=== PATIENT | female | born 1985 | race Caucasian/White ===

== ENCOUNTER 2017-01-19 00:03 | Outpatient (CLI) | payer OTHER, MEDICAID ==
[2017-01-19] MEDS ORDERED: RINGERS SOLUTION,LACTATED 1,000 ML IV PRN (01:22)
[2017-01-19] MEDS ORDERED: ONDANSETRON HCL INJ/PF 4 MG/2 ML SDV IV ONE (01:45)
[2017-01-19] MEDS ORDERED: RINGERS SOLUTION,LACTATED 1,000 ML IV ONE (01:45)
[2017-01-19] MEDS ORDERED: ONDANSETRON HCL INJ/PF 4 MG/2 ML SDV ONE (02:00)
[2017-01-19] MEDS ORDERED: MAG HYDROX/AL HYDROX/SIMETH SUSP 30 ML UDCUP ONE (02:00)
[2017-01-19] MEDS ORDERED: MAG HYDROX/AL HYDROX/SIMETH SUSP 30 ML UDCUP PO ONE (02:00)
[2017-01-19 02:18] LABS: ALANINE AMINOTRANSFERASE 16 U/L (9-52); ALBUMIN 3.6 g/dL (3.5-5.0); ALKALINE PHOSPHATASE 39 U/L (38-126); AMYLASE 62 U/L (30-110); ANION GAP 12 (5-19); ASPARTATE AMINO TRANSFERASE 11 U/L (14-36); BILIRUBIN,DIRECT 0.2 mg/dL (0.0-0.4); BILIRUBIN,TOTAL 0.8 mg/dL (0.2-1.3); BLOOD UREA NITROGEN 6 mg/dL (7-20); CALCIUM 9.5 mg/dL (8.4-10.2); CARBON DIOXIDE 24 mmol/L (22-30); CHLORIDE 104 mmol/L (98-107); CREATININE RESULT 0.66 mg/dL (0.52-1.25); GLUCOSE 99 mg/dL (75-110); LIPASE 57.1 U/L (23-300); POTASSIUM 3.7 mmol/L (3.6-5.0); SODIUM 139.9 mmol/L (137-145); TOTAL PROTEIN 6.7 g/dL (6.3-8.2)
[2017-01-19 03:03] LABS: ABSOLUTE BASOPHILS # (AUTO) 0.1 10^3/uL (0.0-0.2); ABSOLUTE EOSINOPHILS # (AUTO) 0.3 10^3/uL (0.0-0.6); ABSOLUTE LYMPHOCYTES (AUTO) 3.4 10^3/uL (0.5-4.7); BASOPHILS % (AUTO) 0.4 % (0-2); EOSINOPHILS % (AUTO) 1.9 % (0-6); HEMATOCRIT 33.2 % (36.0-47.0); HEMOGLOBIN 11.3 g/dL (12.0-15.5); HGB HCT DIFFERENCE 0.7; LYMPHOCYTES % (AUTO) 19.2 % (13-45); MEAN CORPUSCULAR HEMOGLOBIN 29.8 pg (27.0-33.4); MEAN CORPUSCULAR VOLUME 88 fl (80-97); MONOCYTES % (AUTO) 5.5 % (3-13); RED BLOOD COUNT 3.79 10^6/uL (3.72-5.28); RED CELL DISTRIBUTION WIDTH 14.2 % (11.5-14.0); WHITE BLOOD COUNT 17.7 10^3/uL (4.0-10.5)
[2017-01-19 04:09] LABS: APPEARANCE,URINE SLIGHTLY-CLOUDY; BILIRUBIN,URINE NEGATIVE (NEGATIVE); GLUCOSE, URINE NEGATIVE (NEGATIVE); KETONES,URINE 20 mg/dL (NEGATIVE); LEUKOCYTE ESTERASE,URINE NEGATIVE (NEGATIVE); NITRITE,URINE NEGATIVE (NEGATIVE); PROTEIN,URINE 30 mg/dL (NEGATIVE); URINE SPECIFIC GRAVITY 1.019; UROBILINOGEN,URINE NEGATIVE mg/dL (<2.0)
[2017-01-19 04:17] LABS: URINE BARBITURATES SCREEN NEGATIVE; URINE METHADONE SCREEN NEGATIVE; URINE OPIATES LOW NEGATIVE; URINE PHENCYCLIDINE SCREEN NEGATIVE
== END 2017-01-19 03:59 | disposition home or self-care (01) ==
LOC: LC 00:03
PROVIDERS: ATTEND Obstetrics & Gynecology
PROC: 4A1HXCZ Monitoring of Products of Conception, Cardiac Rate, External Approach (ICD-10-PCS; principal; 2017-01-19)
DX: O47.02 False labor before 37 completed weeks of gestation, second trimester (principal); O26.892 Other specified pregnancy related conditions, second trimester; R11.2 Nausea with vomiting, unspecified; Z3A.26 26 weeks gestation of pregnancy
CPT/HCPCS: 59899; 36415; 82150; 83690; 85025; 80053; 81001; 80307; J2405

== ENCOUNTER 2017-02-05 13:01 | Emergency (ER) | payer OTHER, MEDICAID ==
[2017-02-05] MEDS ORDERED: IPRATROPIUM/ALBUTEROL 0.5-2.5 MG/3 ML AMPUL NEB ONE ×2 (13:55→15:08)
[2017-02-05] MEDS ORDERED: PREDNISONE 20 MG TABLET PO ONE (13:55)
[2017-02-05] MEDS ORDERED: NORMAL SALINE 1000 ML 1,000 ML IV ONE (13:56)
--- NOTE | 2017-02-05 13:57 | ER Document Report ---
ED Medical Screen (RME) - General Chief Complaint: Cough Stated Complaint: DIFFICULTY BREATHING Time Seen by Provider: 02/05/17 13:50 Notes: 31-year-old asthmatic patient but 29 weeks , started with URI symptoms worsening asthma on Saturday, worse yesterday. Doing regular breathing treatments with nebulizer and using inhaler between the nebulizer treatments. She has had a nonproductive cough, has had some chills. No vomiting. No known fever but has not checked her temperature. Has not been on steroids and probably a year. I have greeted and performed a rapid initial assessment of this patient. A comprehensive ED assessment and evaluation of the patient, analysis of test results and completion of the medical decision making process will be conducted by additional ED providers. TRAVEL OUTSIDE OF THE [place] IN LAST 30 DAYS: No - Related Data Allergies/Adverse Reactions: levofloxacin [From Levaquin] Allergy (Verified 02/05/17 13:25) Past Medical History Pulmonary Medical History: Reports: Hx Asthma, Hx Pneumonia Endocrine Medical History: Denies: Hx Diabetes Mellitus Type 2 Renal/ Medical History: Reports: Hx Ovarian Cysts, Hx Pelvic Inflammatory Disease. Denies: Hx Peritoneal Dialysis Past Surgical History: Reports: Hx Cholecystectomy, Hx Tonsillectomy - Immunizations Immunizations up to date: Yes Hx Diphtheria, Pertussis, Tetanus Vaccination: Yes Physical Exam - Vital signs Vitals: Temp Pulse Resp BP Pulse Ox 98.9 F 120 H 24 H 137/79 H 95 02/05/17 13:27 02/05/17 13:27 02/05/17 13:27 02/05/17 13:27 02/05/17 13:27 Course - Vital Signs Vital signs: Temp Pulse Resp BP Pulse Ox 98.9 F 120 H 24 H 137/79 H 95 02/05/17 13:27 02/05/17 13:27 02/05/17 13:27 02/05/17 13:27 02/05/17 13:27
[2017-02-05 14:33] LABS: ABSOLUTE EOSINOPHILS # (AUTO) 0.6 10^3/uL (0.0-0.6); ABSOLUTE LYMPHOCYTES (AUTO) 2.9 10^3/uL (0.5-4.7); ABSOLUTE MONOCYTES (AUTO) 1.1 10^3/uL (0.1-1.4); ABSOLUTE NEUT (AUTO) 12.3 10^3/uL (1.7-8.2); BASOPHILS % (AUTO) 0.3 % (0-2); EOSINOPHILS % (AUTO) 3.7 % (0-6); HEMATOCRIT 29.4 % (36.0-47.0); HEMOGLOBIN 9.7 g/dL (12.0-15.5); HGB HCT DIFFERENCE -0.3; LYMPHOCYTES % (AUTO) 17.2 % (13-45); MEAN CORPUSCULAR HEMOGLOBIN 29.1 pg (27.0-33.4); MEAN CORPUSCULAR VOLUME 88 fl (80-97); MONOCYTES % (AUTO) 6.2 % (3-13); RED BLOOD COUNT 3.34 10^6/uL (3.72-5.28); RED CELL DISTRIBUTION WIDTH 14.2 % (11.5-14.0); SEGMENTED NEUTROPHILS % (AUTO) 72.6 % (42-78); WHITE BLOOD COUNT 16.9 10^3/uL (4.0-10.5)
[2017-02-05 14:44] LABS: ALANINE AMINOTRANSFERASE 27 U/L (9-52); ALBUMIN 3.6 g/dL (3.5-5.0); ALKALINE PHOSPHATASE 43 U/L (38-126); ANION GAP 13 (5-19); ASPARTATE AMINO TRANSFERASE 11 U/L (14-36); BILIRUBIN,DIRECT 0.2 mg/dL (0.0-0.4); BLOOD UREA NITROGEN 4 mg/dL (7-20); CALCIUM 8.3 mg/dL (8.4-10.2); CARBON DIOXIDE 21 mmol/L (22-30); CHLORIDE 106 mmol/L (98-107); CREATININE RESULT 0.52 mg/dL (0.52-1.25); GLUCOSE 75 mg/dL (75-110); POTASSIUM 3.8 mmol/L (3.6-5.0); SODIUM 139.6 mmol/L (137-145); TOTAL PROTEIN 6.5 g/dL (6.3-8.2)
--- NOTE | 2017-02-05 15:23 | ER Document Report ---
ED Respiratory Problem - General Chief Complaint: Cough Stated Complaint: DIFFICULTY BREATHING Time Seen by Provider: 02/05/17 13:50 Notes: The patient is a 31-year-old female, 28 weeks , PMHx asthma, unexplained tachycardia (evaluated by 3 specialists), presents with increasing wheezing and cough over the past 2 days. She had a severe asthma exacerbation 2 months ago and was admitted for 7 days. She said that her wheezing is not as severe as that time. She used her albuterol at home with mild relief of her symptoms. She is no longer taking prednisone. Denies leg swelling, abdominal pain, nausea, vomiting, hemoptysis, headache, chest pain or fevers. TRAVEL OUTSIDE OF THE [place] IN LAST 30 DAYS: No - Related Data Allergies/Adverse Reactions: levofloxacin [From Levaquin] Allergy (Verified 02/05/17 17:14) Past Medical History - General Information source: Patient - Social History Smoking Status: Unknown if Ever Smoked Family History: Reviewed & Not Pertinent, Arthritis, Hypertension Pulmonary Medical History: Reports: Hx Asthma, Hx Pneumonia Endocrine Medical History: Denies: Hx Diabetes Mellitus Type 2 Renal/ Medical History: Reports: Hx Ovarian Cysts, Hx Pelvic Inflammatory Disease. Denies: Hx Peritoneal Dialysis Past Surgical History: Reports: Hx Cholecystectomy, Hx Tonsillectomy - Immunizations Immunizations up to date: Yes Hx Diphtheria, Pertussis, Tetanus Vaccination: Yes Review of Systems - Review of Systems Notes: REVIEW OF SYSTEMS: CONSTITUTIONAL: -fevers, -chills EENT: -eye pain, -difficulty swallowing, -nasal congestion CARDIOVASCULAR:-chest pain, -syncope. RESPIRATORY: +cough, +SOB GASTROINTESTINAL: -abdominal pain, - nausea, -vomiting, -diarrhea GENITOURINARY: -dysuria, -hematuria MUSCULOSKELETAL: -back pain, -neck pain SKIN: -rash or skin lesions. HEMATOLOGIC: -easy bruising or bleeding. LYMPHATIC: -swollen, enlarged glands. NEUROLOGICAL: -altered mental status or loss of consciousness, -headache, - neurologic symptoms PSYCHIATRIC: -anxiety, -depression. ALL OTHER SYSTEMS REVIEWED AND NEGATIVE. Physical Exam - Vital signs Vitals: Temp Pulse Resp BP Pulse Ox 98.9 F 120 H 24 H 137/79 H 95 02/05/17 13:27 02/05/17 13:27 02/05/17 13:27 02/05/17 13:27 02/05/17 13:27 - Notes Notes: PHYSICAL EXAMINATION: GENERAL: Well-appearing, well-nourished and in no acute distress. HEAD: Atraumatic, normocephalic. EYES: Pupils equal round and reactive to light, extraocular movements intact, sclera anicteric, conjunctiva are normal. ENT: nares patent, oropharynx clear without exudates. Moist mucous membranes. NECK: Normal range of motion, supple without lymphadenopathy LUNGS: No respiratory distress. Wheezing bilaterally. HEART: Tachycardia, regular rhythm ABDOMEN: Soft, nontender, normoactive bowel sounds. Gravid abdomen. No guarding , no rebound. No masses appreciated. EXTREMITIES: Normal range of motion, no pitting or edema. No cyanosis. NEUROLOGICAL: Cranial nerves grossly intact. Normal speech, normal gait. Normal sensory and motor exams. PSYCH: Normal mood, normal affect. SKIN: Warm, Dry, normal turgor, no rashes or lesions noted. Course - Re-evaluation Re-evalutation: 02/05/17 16:51 Pt feels much better after DuoNeb and steroids. Her wheezing has resolved and she is in no respiratory distress. Offered patient a chest x- ray for possible pneumonia, but patient said that she has had multiple x-rays during this when she was hospitalized in November and she is deferring the x-ray because she feels much better. She has seen 3 specialists for further evaluation of the tachycardia. Spoke to patient about concern for possible PE, but patient is not feeling any shortness of breath at this time. She is requesting Tylenol with codeine to help with her cough because that is the only thing that works. Codeine is a class C and she understands the potential risks of taking this medication. She said that she was taking it before when she was hospitalized. Will provide a short course and have her follow-up with her easement worker tomorrow. Given strict return precautions and she understands. - Vital Signs Vital signs: Temp Pulse Resp BP Pulse Ox 98.9 F 120 H 27 H 139/87 H 96 02/05/17 13:27 02/05/17 17:30 02/05/17 17:30 02/05/17 17:30 02/05/17 17:30 - Laboratory Result Diagrams: 02/05/17 14:15 02/05/17 14:15 Laboratory results interpreted by me: 02/05/17 02/05/17 02/05/17 14:15 14:15 16:05 WBC 16.9 H RBC 3.34 L Hgb 9.7 L Hct 29.4 L RDW 14.2 H Absolute Neutrophils 12.3 H Carbon Dioxide 21 L BUN 4 L Calcium 8.3 L AST 11 L Urine Ketones 20 H Discharge - Discharge Clinical Impression: Asthma exacerbation Condition: Stable Disposition: HOME, SELF-CARE Additional Instructions: ASTHMA: You have been diagnosed as having asthma. This is a condition where there is episodic tightness in the bronchial tubes. Allergies, infections, and polluted or cold air may be contributing factors. Emergency treatment of a severe asthma attack may include adrenaline shots , or bronchodilator aerosol. You may feel lightheaded, have a decreased exercise tolerance and a rapid pulse for an hour or two. Rest and get plenty of fluids. Home treatment of asthma requires bronchodilator drugs. These can be administered by injection, inhalation, or by mouth. Antibiotics and corticosteroids may be required for some patients. You should avoid chemical fumes, dusts, pollens, and exercising in very cold or dry air. If you smoke, stop!! If you develop a fever, increased wheezing, chest pain, or severe shortness of breath, you should contact the doctor immediately. STEROID MEDICATION: You have been given an injection of or oral medicine of the cortisone/ steroid class. This medication is used to control inflammation or allergy. Rudy t is usually only given for a short period of time, until the acute process subsides. There are usually no side effects from short-term use of cortisone-like medications. Some persons feel an increased sense of well-being and are not sleepy at bedtime. Long-term use of cortisone medications is best avoided, unless required for a severe condition. If your condition does not remit, or relapses after the course of corticosteroid medication, you should consult your physician. INHALED BRONCHODILATORS: You have received treatment(s) of and/or prescription for an inhaled bronchodilator -- a medication which stimulates the airways in the lung to dilate. This improves the flow of air in asthma, bronchitis, and emphysema. These medicines have some similarity to adrenaline, and can cause similar side effects: shakiness, racing heart, and a sense of nervousness. These side effects decrease with time. Contact your doctor if these side effects are severe. Do not over-use the medicine. Too-frequent use of the inhaler may make it ineffective. Call your doctor if the inhaler is not controlling your symptoms at the prescribed doses. SMOKING: If you smoke, you should stop smoking. The tar and chemicals in cigarette smoke are harmful. Smoking has been shown to cause: emphysema chronic bronchitis lung cancer mouth and throat cancer stomach and pancreas cancer premature aging defects In addition, smoking increases ear and lung infections in children of smokers. USE OF ACETAMINOPHEN: Acetaminophen may be taken for pain relief or fever control. It's much safer than aspirin, offering a wider range of "safe" dosages. It is safe during . Some brand names are Tylenol, Panadol, Datril, Anacin 3, Tempra, and Liquiprin. Acetaminophen can be repeated every four hours. The following are maximum recommended dosages: USE OF ACETAMINOPHEN (Tylenol): Acetaminophen may be taken for pain relief or fever control. It's much safer than aspirin, offering a wider range of "safe" dosages. It is safe during . Some brand names are Tylenol, Panadol, Datril, Anacin 3, Tempra, and Liquiprin. Acetaminophen can be repeated every four hours. The following are maximum recommended dosages: WEIGHT Dose Drops Elixir Chewable( 80mg) (LBS.) drprs=droppers tsp=teaspoon 6 40 mg 0.4 ml (1/2) 6-11 80 mg 0.8 ml (full) tsp 1 tab 12-16 120 mg 1 1/2 drprs 3/4 tsp 1 1/2 tabs 17-23 160 mg 2 drprs 1 tsp 2 tabs 24-30 240 mg 3 drprs 1 1/2 tsp 3 tabs 30-35 320 mg 2 tsp 4 tabs 36-41 360 mg 2 1/4 tsp 4 1/2 tabs 42-47 400 mg 2 1/2 tsp 5 tabs 48-53 480 mg 3 tsp 6 tabs 54-59 520 mg 3 1/4 tsp 6 1/2 tabs 60-64 560 mg 3 1/2 tsp 7 tabs 65-70 600 mg 3 3/4 tsp 7 1/2 tabs 71-76 640 mg 4 tsp 8 tabs 77-82 720 mg 4 1/2 tsp 9 tabs 83-88 800 mg 5 tsp 10 tabs >89 pounds or adults 650 mg to 900 mg Acetaminophen can be repeated every four hours. Maximum dose not to exceed 4000 mg a day. These maximum recommended dosages are slightly higher than the dosages written on the product container, but these dosages are very safe and below the toxic dosage for acetaminophen. FOLLOW-UP CARE: If you have been referred to a physician for follow-up care, call the physician s office for an appointment as you were instructed or within the next two days. If you experience worsening or a significant change in your symptoms, notify the physician immediately or return to the Emergency Department at any time for re-evaluation. Prescriptions: Acetaminophen with Codeine [Tylenol #3 Tablet] 1 each PO Q4HP PRN #12 tablet PRN Reason: Prednisone [Deltasone 20 mg Tablet] 3 tab PO DAILY 5 Days
[2017-02-05] MEDS ORDERED: ACETAMINOPHEN WITH CODEINE 120-12 MG/5 ML UDCUP PO ONE (16:42)
[2017-02-05 17:21] LABS: APPEARANCE,URINE CLEAR; BILIRUBIN,URINE NEGATIVE (NEGATIVE); GLUCOSE, URINE NEGATIVE (NEGATIVE); KETONES,URINE 20 mg/dL (NEGATIVE); LEUKOCYTE ESTERASE,URINE NEGATIVE (NEGATIVE); NITRITE,URINE NEGATIVE (NEGATIVE); PROTEIN,URINE NEGATIVE (NEGATIVE); URINE SPECIFIC GRAVITY 1.003; UROBILINOGEN,URINE NEGATIVE mg/dL (<2.0)
[2017-02-05] MEDS ORDERED: GUAIFENESIN/CODEINE PHOS 100-10 MG/ 5 ML UDC PO ONE (17:33)
[2017-02-05 17:53] VITALS: BP 139/87
== END 2017-02-05 17:30 | disposition home or self-care (01) ==
LOC: ER 13:01
DX: O99.513 Diseases of the respiratory system complicating pregnancy, third trimester (principal); J45.901 Unspecified asthma with (acute) exacerbation; O26.893 Other specified pregnancy related conditions, third trimester; R05 Cough; R00.0 Tachycardia, unspecified; Z3A.28 28 weeks gestation of pregnancy; Z88.1 Allergy status to other antibiotic agents; Z87.01 Personal history of pneumonia (recurrent)
CPT/HCPCS: 99283; 36415; 85025; 80053; 81001; J3490; J7512; J7030; J7620

== ENCOUNTER 2017-03-19 00:19 | Outpatient (CLI) | payer OTHER, MEDICAID ==
[2017-03-19 00:59] LABS: APPEARANCE,URINE SLIGHTLY-CLOUDY; BILIRUBIN,URINE NEGATIVE (NEGATIVE); GLUCOSE, URINE NEGATIVE (NEGATIVE); KETONES,URINE NEGATIVE (NEGATIVE); LEUKOCYTE ESTERASE,URINE SMALL (NEGATIVE); NITRITE,URINE NEGATIVE (NEGATIVE); PROTEIN,URINE NEGATIVE (NEGATIVE); URINE SPECIFIC GRAVITY 1.003; UROBILINOGEN,URINE NEGATIVE mg/dL (<2.0)
--- NOTE | 2017-03-19 01:23 | Non Stress Test Report ---
Non Stress Test Datetime Report Generated by CPN: 03/19/2017 01:23 DEMOGRAPHIC EGA NST: 34.5 INDICATION Indication for Study: Ordered by Provider Indication for Study (NST) Other: LC MONITORING Monitor Explained: Monitor Explained; Test Explained; Patient Verbalized Understanding Time on Monitor: 03/19/2017 00:37 Time off Monitor: 03/19/2017 01:11 NST Duration: 34 NST INTERVENTIONS NST Interventions: PO Hydration; Reposition Patient Physician Notified NST: Dr. Giordano BABY A: [id number] BABY A Movement : Present Contraction Frequency : x3 FHR Baseline : 150 Accelerations : 15X15 Decelerations : None; Variable Variability : Moderate 6-25bpm NST Review: Meets Criteria for Reactive NST NST Review and Verified By : Alka Vital RN NST Results: Reactive NST REPORT Report Trigger: Send Report
[2017-03-19 02:19] LABS: URINE BARBITURATES SCREEN NEGATIVE; URINE METHADONE SCREEN NEGATIVE; URINE OPIATES LOW NEGATIVE; URINE PHENCYCLIDINE SCREEN NEGATIVE
== END 2017-03-19 01:30 | disposition home or self-care (01) ==
LOC: LC 00:19
PROVIDERS: ATTEND Student in an Organized Health Care Education/Training Program
PROC: 4A1HXCZ Monitoring of Products of Conception, Cardiac Rate, External Approach (ICD-10-PCS; principal; 2017-03-19)
DX: O76 Abnormality in fetal heart rate and rhythm complicating labor and delivery (principal); O47.03 False labor before 37 completed weeks of gestation, third trimester; Z3A.34 34 weeks gestation of pregnancy
CPT/HCPCS: 59025; 80307; 81001

== ENCOUNTER 2017-04-06 12:32 | Inpatient (IN) | payer OTHER, MEDICAID ==
[2017-04-06 13:31] LABS: AMNISURE (ROM) POSITIVE (NEGATIVE)
[2017-04-06 13:32] LABS: APPEARANCE,URINE SLIGHTLY-CLOUDY; BILIRUBIN,URINE NEGATIVE (NEGATIVE); GLUCOSE, URINE NEGATIVE (NEGATIVE); KETONES,URINE NEGATIVE (NEGATIVE); LEUKOCYTE ESTERASE,URINE SMALL (NEGATIVE); NITRITE,URINE NEGATIVE (NEGATIVE); PROTEIN,URINE 30 mg/dL (NEGATIVE); URINE SPECIFIC GRAVITY 1.003; UROBILINOGEN,URINE NEGATIVE mg/dL (<2.0)
[2017-04-06 13:51] LABS: URINE BARBITURATES SCREEN NEGATIVE; URINE METHADONE SCREEN NEGATIVE; URINE OPIATES LOW NEGATIVE; URINE PHENCYCLIDINE SCREEN NEGATIVE
[2017-04-06] MEDS ORDERED: CEFAZOLIN INJ 1 GM VIAL IV ONE (13:59)
[2017-04-06] MEDS ORDERED: CITRIC ACID/SODIUM CITRATE ORAL SOLN 15 ML UDCUP PO PRN (14:00)
[2017-04-06] MEDS ORDERED: OXYCODONE-ACETAMINOPHEN 5-325 MG TABLET PO PRN (14:01)
[2017-04-06] MEDS ORDERED: PROMETHAZINE HCL INJ 25 MG/1 ML VIAL IV PRN (14:01)
[2017-04-06] MEDS ORDERED: MEASLES,MUMPS&RUBELLA VACC/PF 0.5 ML VIAL SUBCUT PRN (14:01)
[2017-04-06] MEDS ORDERED: DIPH/PERTUSS(ACELL)/TETANUS VAC/PF 0.5 ML SYR (>=10YO) IM PRN (14:01)
[2017-04-06] MEDS ORDERED: OXYTOCIN/NORMAL SALINE 20 UNIT/1,000 ML RTUINJ IV PRN (14:01)
[2017-04-06] MEDS ORDERED: ACETAMINOPHEN 100 ML IV PRN (14:01)
[2017-04-06] MEDS ORDERED: ACETAMINOPHEN 325 MG TABLET PO PRN (14:01)
[2017-04-06] MEDS ORDERED: KETOROLAC TROMETHAMINE INJ/PF 30 MG/1 ML SDV INJ ONE (14:30)
[2017-04-06] MEDS ORDERED: OXYTOCIN 10 UNIT/ML VIAL ONE (14:32)
[2017-04-06] MEDS ORDERED: ONDANSETRON HCL INJ/PF 4 MG/2 ML SDV ONE (14:32)
[2017-04-06] MEDS ORDERED: FENTANYL CITRATE INJ/PF 100 MCG/2 ML AMPUL ONE (14:33)
[2017-04-06] MEDS ORDERED: MIDAZOLAM 2 MG/2 ML INJ ONE (14:33)
[2017-04-06] MEDS ORDERED: CITRIC ACID/SODIUM CITRATE ORAL SOLN 15 ML UDCUP ONE (14:35)
[2017-04-06] MEDS ORDERED: CEFAZOLIN 2 GM/D5W RTU 2 GM/50 ML RTUPB IV ONE (14:35)
[2017-04-06] MEDS ORDERED: CEFAZOLIN 1 GM/D5W RTU 1 GM/50 ML RTUPB IV ONE (14:35)
[2017-04-06 15:07] LABS: ABSOLUTE BASOPHILS # (AUTO) 0.1 10^3/uL (0.0-0.2); ABSOLUTE EOSINOPHILS # (AUTO) 0.3 10^3/uL (0.0-0.6); ABSOLUTE LYMPHOCYTES (AUTO) 5.1 10^3/uL (0.5-4.7); ABSOLUTE NEUT (AUTO) 6.8 10^3/uL (1.7-8.2); BASOPHILS % (AUTO) 0.4 % (0-2); EOSINOPHILS % (AUTO) 2.6 % (0-6); HEMATOCRIT 28.5 % (36.0-47.0); HEMOGLOBIN 9.6 g/dL (12.0-15.5); HGB HCT DIFFERENCE 0.3; LYMPHOCYTES % (AUTO) 38.6 % (13-45); MEAN CORPUSCULAR HEMOGLOBIN 29.3 pg (27.0-33.4); MEAN CORPUSCULAR HGB CONC 33.7 g/dL (32.0-36.0); MEAN CORPUSCULAR VOLUME 87 fl (80-97); MONOCYTES % (AUTO) 7.8 % (3-13); RED BLOOD COUNT 3.29 10^6/uL (3.72-5.28); RED CELL DISTRIBUTION WIDTH 15.3 % (11.5-14.0); SEGMENTED NEUTROPHILS % (AUTO) 50.6 % (42-78); WHITE BLOOD COUNT 13.3 10^3/uL (4.0-10.5)
[2017-04-06] MEDS ORDERED: DIPHENHYDRAMINE HCL 50 MG/ML VIAL ONE (15:48)
[2017-04-06 16:06] LABS: ADD HIVPANEL? NO; HIV (1 AND 2) ANTIBODY NEGATIVE (NEGATIVE)
[2017-04-06] MEDS ORDERED: OXYTOCIN/NORMAL SALINE 20 UNIT/1,000 ML RTUINJ ONE (16:43)
[2017-04-06] MEDS ORDERED: MEPERIDINE HCL/PF INJ 25 MG/1 ML DISP.SYRIN ONE ×2 (16:43→17:06)
--- NOTE | 2017-04-06 16:52 | OPERATIVE REPORT E ---
Operative Report NAME: KEEGAN ADAM : 1985 AGE: 31Y DATE OF SURGERY: 04/06/2017 ROOM: LR200 TIME OF PROCEDURE: 4:13 p.m. PREOPERATIVE DIAGNOSES: 1. Spontaneous rupture of membranes. 2. Polyhydramnios. 3. Left occiput transverse presentation. 4. Desires tubal ligation. POSTOPERATIVE DIAGNOSES: 1. Spontaneous rupture of membranes. 2. Polyhydramnios. 3. Left occiput transverse presentation. OPERATION: Primary via low transverse uterine incision and a tubal ligation. SURGEON: CHRIS LUNDY M.D. ANESTHESIA: Spinal. ESTIMATED BLOOD LOSS: 250. COMPLICATIONS: None. FINDINGS: Viable male, scores 8 and 9, and 9 pounds 1 ounce. PROCEDURE: The patient was taken to the OR and placed in the supine position. Her spinal was in place. Her abdomen was prepared and draped in a sterile fashion. Her bladder was drained with a Shook catheter. A low transverse incision was made and carried down to the level of the fascia which was nicked in the midline. The fascial incision was extended bilaterally using curved Zimmerman scissors. The fascia was off the rectus muscles using sharp and blunt dissection. The rectus muscles were in the midline, peritoneum entered without incident. Peritoneal incision extended superiorly and inferiorly taking care not to injury bladder. Bladder blade placed. Lower uterine segment identified, and a serosal incision was made creating a bladder flap. A low transverse uterine incision was made with the C-Safe knife. The incision was extended with the fingertips. The head was pushed down into the low uterine segment, and a vacuum was applied to control the head and the head was delivered. The baby was delivered completely. Cord doubly clamped and cut, and the was passed off to the plate washer in attendance. While using the vacuum, it took 1 pull with the pressure in the green using a Kiwi vacuum. The placenta was manually extracted with trailing membranes. The uterus was externalized and wiped with a moist lap sponge. Uterine contents were wiped clean. Tubes and ovaries were normal. The uterus was closed with a running locking layer of #0-chromic using a second layer to imbricate the first completing a double-layer closure of the uterus. The serosa was closed with a 2-0 chromic stitch. The posterior cul-de-sac was irrigated and suctioned free of fluid. The tubal was carried out using the [place] technique ligating a segment of tube and cut excising the segment free. The cut edge of each tube was then cauterized. The uterus was replaced in the abdomen. The anterior abdominal wall peritoneum was closed with a running 2-0 chromic stitch. Subfascial tissues were inspected with bleeding. Fascia was closed with a running #0-Vicryl in 2 segments. The wound was irrigated. Will's layer was closed with a 2-0 plain gut stitch, and the skin closed with a running subcuticular 4-0 undyed Vicryl stitch. Mother and baby are doing well. DICTATING PHYSICIAN: CHRIS LUNDY M.D. [id number] PHY#: [id number] ID: [id number] JOB#: [id number] ACCT: [id number] cc:CHRIS LUNDY M.D. >
--- NOTE | 2017-04-06 17:00 | Delivery Summary ---
Del Sum A-C Datetime Report Generated by CPN: 04/06/2017 16:59 DELIVERY PERSONNEL DELIVERY PERSONNEL: [id number];[id number] Delivery Doctor:: Miles Villegas MD Anesthesiologist:: Jc Koenig MD BRUSH FINISHER:: Berry Jaeger CRNA Labor and Delivery Nurse:: Yue Walton RNquarantine officer Nurse:: Lila Clarke RN Filter Assembler:: [facility] Nurse:: Denise Espinal RN Breast Buffer/INTENSIVE CARE UNIT REGISTERED NURSE: Kourtney Ramos CST Breast Buffer/INTENSIVE CARE UNIT REGISTERED NURSE: Stevenson Pickens LION HUNTER MATERNAL INFORMATION Delivery Anesthesia: Spinal Medications After Delivery: Pitocin Drip 20 Units/1000ml NSS Maternal Complications: Premature Rupture of Membranes LABOR SUMMARY EDC: 04/25/2017 00:00 No. Babies in Womb: 1 Attempted: No Labor Anesthesia: None LABOR INFORMATION Reason for Induction: Not Applicable Oxytocin: N/A Group B Beta Strep: NEGATIVE Antibiotics # of Doses: n/a Antibiotics Time of Last Dose: n/a Name of Antibiotic Given: n/a Steroids Given: None Reason Steroids Not Administered: Not Applicable Other Reason Not Administered: n/a MEMBRANES Membranes Rupture Method: Spontaneous Rupture of Membranes: 04/06/2017 11:58 Length of Rupture (hr): 3.65 Amniotic Fluid Color: Clear Amniotic Fluid Amount: Copious Amniotic Fluid Odor: Normal STAGES OF LABOR Stage 3 hr: 0 Stage 3 min: 1 CSECTION DELIVERY Primary Indication: Transverse/Complex Presentation Secondary Indication: N/A CSection Urgency: Non-Scheduled CSection Incidence: Primary CSection Incision: Lower Uterine Transverse Sterilization Procedure: [place] BABY A INFORMATION Delivery Date/Time: 04/06/2017 15:37 Method of Delivery: Born in Route : No : N/A Forceps: N/A Vacuum Extraction: N/A Shoulder Dystocia : No PRESENTATION/POSITION BABY A Presentation: Cephalic Cephalic Presentation: N/A Vertex Position: Left Occipital Transverse Breech Presentation: N/A PLACENTA INFORMATION BABY A Placenta Delivery Time : 04/06/2017 15:38 Placenta Method of Delivery: Manual Removal Placenta Status: Delivered SCORES BABY A Heart Rate 1 min: >100 bpm Resp Effort 1 min: Good Cry Reflex Irritability 1 min: Cough or Sneeze or Pulls Away Muscle Tone 1 min: Some Flexion of Extremities Color 1 min: Body Raub, Extremities Blue SCORE 1 MIN: 8 Heart Rate 5 min: >100 bpm Resp Effort 5 min: Good Cry Reflex Irritability 5 min: Cough or Sneeze or Pulls Away Muscle Tone 5 min: Active Motion Color 5 min: Body Raub, Extremities Blue SCORE 5 MIN: 9 INFORMATION BABY A Gestational Age at Delivery: 37.2 Gestational Status: Early Term- 37- 38.6 Weeks Infant Outcome : Liveborn Infant Condition : Stable Sex: Male IDENTIFICATION BABY A Verification Date/Time: 04/06/2017 15:42 ID Band Number: [id number] Mother's Name Verified: Yes Infant RN Verifying : Rodrick Anton RN Additional Verifying Personnel: Merlin Clarke RN WEIGHT/LENGTH BABY A Birthweight (gm): 4120 Weight (lb): 9 Weight (oz): 1 Length (in): 20.75 Length (cm): 52.71 CORD INFORMATION BABY A No. Cord Vessels: 3 Nuchal Cord : N/A Cord Blood Taken: Yes-For Storage (Mom's Blood type +) Suction: Mouth; Nose BABY B INFORMATION : N/A
[2017-04-06] MEDS ORDERED: ACETAMINOPHEN 100 ML IV ONE (17:07)
[2017-04-06] MEDS ORDERED: KETOROLAC TROMETHAMINE INJ/PF 30 MG/1 ML SDV ONE (17:07)
[2017-04-06] MEDS ORDERED: HYDROMORPHONE HCL INJ/PF 2 MG/ML AMPULE ONE (17:56)
--- NOTE | 2017-04-06 18:50 | Admission Physical ---
Datetime Report Generated by CPN: 04/06/2017 18:50 CURRENT ADMISSION Chief Complaint: Uterine Contractions; Suspected Ruptured Membranes Indication for Induction: Not Applicable Admit Impression- Other: Transverse lie Admit Plan: Admit to Unit; Initiate Section Protocol ALLERGIES Medication Allergies: Yes Medication Allergies: levofloxacin (04/06/2017); nickel (04/06/2017); nickel Medication Allergies: levofloxacin (04/06/2017) Medication Allergies: levofloxacin (02/05/2017) Medication Allergies: levofloxacin (01/19/2017) Medication Allergies: levofloxacin (04/10/2016) Latex: No Latex Allergies Food Allergies: N/a Environmental Allergies: N/A OBSTETRICAL HISTORY EDC: 04/25/2017 00:00 : 3 Para: 1 Term: 1 IAB: 1 Ectopic: 0 Livin Cesareans: 0 VBACs: 0 Multiple Births: 0 Gestational Diabetes: Yes Rh Sensitization: No Incompetent Cervix: No JEFF: No Infertility: No ART Treatment: No Uterine Anomaly: No IUGR: No Hx Previous C/S: No Macrosomia: Yes Hx Loss/Stillborn: No PIH: No Hx : No Placenta Previa/Abruption: No Depression/PP Depression: No PTL/PROM: No Post Hemorrhage: No Current Procedures: Ultrasound Obstetrical History Comments: G1: 2003 IAB G2: 2013, female 41+ (diet-controlled GDM) G3: current SEE RECORDS Alcohol: No Marijuana : No Cocaine: No Other Illicit Drugs: No Cigarettes: Current Everyday Smoker. [id number] Cigarette Frequency: 5 - 10 per day Advised to Stop: Yes MEDICAL HISTORY Diabetes: Yes Diabetes Type: Gestational Diabetes Blood Transfusion: No Pulmonary Disease (Asthma, TB): Yes Breast Disease: No Hypertension: No Riprap Man Surgery: Yes Heart Disease: Unknown Hosp/Surgery: Yes Autoimmune Disorder: No Anesthetic Complications: No Kidney Disease: No Abnormal Pap Smear: Yes Neuro/Epilepsy: No Psychiatric Disorders: No Other Medical Diseases: No Hepatitis/Liver Disease: No Significant Family History: No Varicosities/Phlebitis: No Trauma/Violence : No Thyroid Dysfunction: No Medical History Comments: GDM in prior , tachycardia of unknown etiology (followed by [facility] cardiology), LEEP x2 (last one in 2012), colpo x1, asthma INFECTIOUS HISTORY Gonorrhea: No Genital Herpes: No Chlamydia: No Tuberculosis: No Syphilis: No Hepatitis: No HIV/AIDS Exposure: No Rash or Viral Illness: No HPV: Yes PHYSICAL EXAM General: Normal HEENT: Normal Neurologic: Normal Thyroid: Normal Heart: Normal Lungs: Normal Breast: Deferred Back: Normal Abdomen: Normal Genitourinary Exam: Normal Extremities: Normal DTRs: Normal Pelvic Type: Adequate Vital Signs: Reviewed VAGINAL EXAM Dilatation: 0 Effacement: 0 MEMBRANES Pooling: Positive Membranes: Ruptured FETUS A EGA: 37.2 Monitoring: External US FHR- Baseline: 140 Variability: Minimal - Undetectable to <=5bpm Decelerations: None FHR Category: Category II Presentation: Transverse Admit Comment: discussed options. they wish to proceed with a c section. PLANS FOR LABOR AND DELIVERY Pain Management: Epidural Feeding Preference: Breast Benefit of Breast Feed Discussed: Yes Circumcision: Yes INFORMED CONSENT Signature: with User ID: [email or web address]
[2017-04-06] MEDS: DOCUSATE SODIUM 100 MG CAPSULE PO SCH (19:20)
[2017-04-06] MEDS: OXYCODONE-ACETAMINOPHEN 5-325 MG TABLET PO PRN (19:40)
[2017-04-06] MEDS: KETOROLAC TROMETHAMINE INJ/PF 30 MG/1 ML SDV IV SCH (21:46)
[2017-04-06] MEDS: HYDROMORPHONE HCL INJ/PF 2 MG/ML AMPULE IV PRN (22:55)
[2017-04-06] MEDS: RINGERS SOLUTION,LACTATED 1,000 ML IV PRN (22:56)
[2017-04-07] MEDS ORDERED: MAG HYDROX/AL HYDROX/SIMETH SUSP 30 ML UDCUP PO PRN (01:07)
[2017-04-07] MEDS: OXYCODONE-ACETAMINOPHEN 5-325 MG TABLET PO PRN ×2 (03:04→09:59)
[2017-04-07] MEDS: RINGERS SOLUTION,LACTATED 1,000 ML IV PRN (03:07)
[2017-04-07] MEDS ORDERED: RINGERS SOLUTION,LACTATED 500 ML IV ONE ×2 (03:15→17:45)
[2017-04-07] MEDS: KETOROLAC TROMETHAMINE INJ/PF 30 MG/1 ML SDV IV SCH (05:21)
[2017-04-07] MEDS: HYDROMORPHONE HCL INJ/PF 2 MG/ML AMPULE IV PRN (05:52)
[2017-04-07 06:42] LABS: HEMATOCRIT 21.6 % (36.0-47.0); HGB HCT DIFFERENCE -0.3; MEAN CORPUSCULAR HGB CONC 32.9 g/dL (32.0-36.0); MEAN CORPUSCULAR VOLUME 88 fl (80-97); RED BLOOD COUNT 2.45 10^6/uL (3.72-5.28); RED CELL DISTRIBUTION WIDTH 15.2 % (11.5-14.0); WHITE BLOOD COUNT 18.9 10^3/uL (4.0-10.5)
[2017-04-07 06:46] LABS: HEMOGLOBIN 7.1 g/dL (12.0-15.5)
[2017-04-07] MEDS ORDERED: ONDANSETRON 4 MG TAB.RAPDIS ONE (09:52)
[2017-04-07] MEDS: PRENATAL VITAMIN W-O CA NO5/FE FUMARATE/FA CAPSULE PO SCH (09:58)
[2017-04-07] MEDS: FAMOTIDINE 20 MG TABLET PO SCH (09:58)
[2017-04-07] MEDS: DOCUSATE SODIUM 100 MG CAPSULE PO SCH ×2 (09:58→17:36)
[2017-04-07] MEDS ORDERED: ONDANSETRON HCL 8 MG TABLET PO PRN ×2 (10:46→17:38)
--- NOTE | 2017-04-07 11:27 | PDOC PROGRESS REPORT ---
Subjective-OB Subjective: Post Delivery Day: 1 31 year old. Reports being nauseated and vomiting, states lochia is stable, pain is well controlled, not passing gas yet, moving around well. Physical Exam (OB) Vital Signs: Temp Pulse Resp BP Pulse Ox 98.2 F 116 H 20 112/75 100 04/07/17 09:18 04/07/17 09:18 04/07/17 09:18 04/07/17 09:18 04/07/17 09:18 Intake & Output 04/06/17 04/07/17 04/08/17 06:59 06:59 06:59 Intake Total 2000 450 Output Total 480 Balance 1520 450 Weight 108.182 kg - PIH/Pre-Eclampsia Clonus: Negative - Dressing Removed: No Incision: Dressing - Lochia Lochia Amount: Small 10-25 ml Lochia Color: Rubra/Red - Abdomen Description: Firm, Round Hernia Present: No Fundal Description: Firm, Midline Fundal Height: u/u - u/2 Objective-Diagnostic Laboratory: 04/07/17 06:12 04/06/17 04/06/17 04/06/17 13:00 14:47 14:47 WBC 13.3 H RBC 3.29 L Hgb 9.6 L Hct 28.5 L MCV 87 MCH 29.3 MCHC 33.7 RDW 15.3 H Plt Count 526 H Seg Neutrophils % 50.6 Lymphocytes % 38.6 Monocytes % 7.8 Eosinophils % 2.6 Basophils % 0.4 Absolute Neutrophils 6.8 Absolute Lymphocytes 5.1 H Absolute Monocytes 1.0 Absolute Eosinophils 0.3 Absolute Basophils 0.1 Urine Color STRAW Urine Appearance SLIGHTLY-CLOUDY Urine pH 7.0 Ur Specific [place] 1.003 Urine Protein 30 H Urine Glucose (UA) NEGATIVE Urine Ketones NEGATIVE Urine Blood NEGATIVE Urine Nitrite NEGATIVE Ur Leukocyte Esterase SMALL H Blood Type A POSITIVE Antibody Screen NEGATIVE 04/07/17 06:12 WBC 18.9 H RBC 2.45 L Hgb 7.1 L D Hct 21.6 L MCV 88 MCH 29.0 MCHC 32.9 RDW 15.2 H Plt Count 405 Seg Neutrophils % Lymphocytes % Monocytes % Eosinophils % Basophils % Absolute Neutrophils Absolute Lymphocytes Absolute Monocytes Absolute Eosinophils Absolute Basophils Urine Color Urine Appearance Urine pH Ur Specific [place] Urine Protein Urine Glucose (UA) Urine Ketones Urine Blood Urine Nitrite Ur Leukocyte Esterase Blood Type Antibody Screen Assessment and Plan(PN) - Assessment and Plan (1) Polyhydramnios Qualifiers: Fetus number: single or unspecified fetus Is this a current diagnosis for this admission?: Yes Plan: routine pp care (2) premature rupture of membranes (PPROM) delivered, current hospitalization Is this a current diagnosis for this admission?: Yes Plan: transverse presentation (3) Delivery by emergency Is this a current diagnosis for this admission?: Yes Plan: routine post op care cl liquid diet until nausea subsides zofran - Time Spent with Patient Time with patient: Less than 15 minutes Critical Time spent with patient: Less than 15 minutes Medications reviewed and adjusted accordingly: Yes - Disposition Anticipated Discharge: Home Within: within 48 hours
[2017-04-07] MEDS: IBUPROFEN 800 MG TABLET PO SCH ×3 (11:37→23:08)
[2017-04-07] MEDS ORDERED: HYDROCODONE/ACETAMINOPHEN 5-325 MG TABLET PO PRN ×2 (11:48)
[2017-04-07] MEDS: HYDROCODONE/ACETAMINOPHEN 5-325 MG TABLET PO PRN ×2 (14:06→21:24)
[2017-04-07] MEDS: SIMETHICONE 80 MG TAB.CHEW PO PRN ×2 (14:10→21:24)
[2017-04-07 17:20] LABS: HEMATOCRIT 18.6 % (36.0-47.0); HGB HCT DIFFERENCE 0.3; MEAN CORPUSCULAR HEMOGLOBIN 29.1 pg (27.0-33.4); MEAN CORPUSCULAR HGB CONC 33.9 g/dL (32.0-36.0); MEAN CORPUSCULAR VOLUME 86 fl (80-97); RED BLOOD COUNT 2.17 10^6/uL (3.72-5.28); RED CELL DISTRIBUTION WIDTH 15.1 % (11.5-14.0); WHITE BLOOD COUNT 18.3 10^3/uL (4.0-10.5)
[2017-04-07 17:26] LABS: HEMOGLOBIN 6.3 g/dL (12.0-15.5)
[2017-04-07 17:32] LABS: ALANINE AMINOTRANSFERASE 23 U/L (9-52); ALBUMIN 2.4 g/dL (3.5-5.0); ALKALINE PHOSPHATASE 46 U/L (38-126); ANION GAP 7 (5-19); ASPARTATE AMINO TRANSFERASE 20 U/L (14-36); BILIRUBIN,DIRECT 0.3 mg/dL (0.0-0.4); BILIRUBIN,TOTAL 0.4 mg/dL (0.2-1.3); BLOOD UREA NITROGEN 10 mg/dL (7-20); CALCIUM 8.2 mg/dL (8.4-10.2); CARBON DIOXIDE 26 mmol/L (22-30); CHLORIDE 98 mmol/L (98-107); CREATININE RESULT 1.23 mg/dL (0.52-1.25); GLUCOSE 85 mg/dL (75-110); POTASSIUM 3.3 mmol/L (3.6-5.0); SODIUM 130.7 mmol/L (137-145); TOTAL PROTEIN 4.6 g/dL (6.3-8.2)
[2017-04-07] MEDS ORDERED: METOCLOPRAMIDE HCL 10 MG TABLET PO PRN (17:39)
[2017-04-07] MEDS ORDERED: POTASSIUM CLORIDE 20 MEQ/50 ML RIDER IV PRN (18:12)
--- NOTE | 2017-04-07 22:03 | RADIOLOGY REPORT (SQ) ---
EXAM DESCRIPTION: CT ABD/PELVIS WITH IV ONLY COMPLETED DATE/TIME: 04/07/2017 9:46 pm REASON FOR STUDY: possible bowel obstruction COMPARISON: March 2016 TECHNIQUE: CT scan of the abdomen and pelvis performed using helical scanning technique with dynamic intravenous contrast injection. No oral contrast. Images reviewed with lung, soft tissue, and bone windows. Reconstructed coronal and sagittal MPR images reviewed. Delayed images for evaluation of the urinary system also acquired. All images stored on PACS. All CT scanners at this facility use dose modulation, iterative reconstruction, and/or weight based d osing when appropriate to reduce radiation dose to as low as reasonably achievable (ALARA). [facility]: Dose Right [facility]: CareDose [facility]: Dose Right [facility]: Teradose 4D [facility]: [employer] CONTRAST TYPE AND DOSE: contrast/concentration: Isovue 370.00 mg/ml; Total Contrast Delivered: 100.0 ml; Total Saline Delivered: 72.0 ml RENAL FUNCTION: Creatinine 1.03 RADIATION DOSE: Up-to-date CT equipment and radiation dose reduction techniques were employed. CTDIv ol: NaN - NaN mGy. DLP: 0 mGy-cm.. LIMITATIONS: None. FINDINGS: LOWER CHEST: No significant findings. No nodules or infiltrates. LIVER: Normal size. No masses. No dilated ducts. SPLEEN: Normal size. No focal lesions. PANCREAS: No masses. No significant calcifications. No adjacent inflammation or peripancreatic fluid collections. Pancreatic duct not dilated. GALLBLADDER: Status post cholecystectomy ADRENAL GLANDS: No significant masses or asymmetry. RIGHT KIDNEY AND URETER: No solid masses. No significant calcifications. No hydronephrosis or hyd roureter. LEFT KIDNEY AND URETER: No solid masses. No significant calcifications. No hydronephrosis or hydr oureter. AORTA AND VESSELS: No aneurysm. No dissection. Renal arteries, SMA, celiac without stenosis. RETROPERITONEUM: No retroperitoneal adenopathy, hemorrhage or masses. BOWEL AND PERITONEAL CAVITY: No masses or inflammatory changes. No free fluid. There are multiple p rominent air filled bowel loops most consistent with an ileus pattern. APPENDIX: Not identified PELVIS: uterus is identified. Air is identified within the uterine cavity presumably post surgical in nature. No free fluid. Shook catheter is identified in the bladder. ABDOMINAL WALL: There are diffuse edematous or inflammatory changes in the subcutaneous fat in the lo wer abdomen and pelvis. There is diffuse thickening of the abdominal wall in the pelvis which may on ly represent postsurgical changes however these changes could also represent hematomas. There is ass ociated scattered small gas collections presumably postsurgical in nature. BONES: No significant or acute findings. OTHER: No other significant finding. IMPRESSION: uterus is identified. There are diffuse edematous or inflammatory changes in the subcutaneous fat in the lower abdomen and pelvis. There is diffuse thickening of the abdominal wall in the pelvis which may only represent postsurgical changes however these changes could also rep resent hematomas. There is associated scattered small gas collections presumably postsurgical in marybel ure. Clinical correlation is recommended. Other findings as noted above TECHNICAL DOCUMENTATION: JOB ID: [id number] Quality ID # [id number]: Final reports with documentation of one or more dose reduction techniques (e.g., Au tomated exposure control, adjustment of the mA and/or kV according to patient size, use of iterative reconstruction technique) 2010 [employer]- All Rights Reserved
[2017-04-08] MEDS: SIMETHICONE 80 MG TAB.CHEW PO PRN ×3 (04:28→17:26)
[2017-04-08] MEDS: HYDROCODONE/ACETAMINOPHEN 5-325 MG TABLET PO PRN ×4 (04:29→23:01)
[2017-04-08] MEDS: IBUPROFEN 800 MG TABLET PO SCH ×4 (05:02→23:00)
[2017-04-08 06:27] LABS: HEMATOCRIT 22.6 % (36.0-47.0); HGB HCT DIFFERENCE 1.1; MEAN CORPUSCULAR HEMOGLOBIN 30.1 pg (27.0-33.4); MEAN CORPUSCULAR HGB CONC 34.8 g/dL (32.0-36.0); MEAN CORPUSCULAR VOLUME 87 fl (80-97); RED BLOOD COUNT 2.61 10^6/uL (3.72-5.28); WHITE BLOOD COUNT 16.4 10^3/uL (4.0-10.5)
[2017-04-08 06:55] LABS: HEMOGLOBIN 7.9 g/dL (12.0-15.5)
--- NOTE | 2017-04-08 08:43 | PDOC PROGRESS REPORT ---
Subjective Progress Note for:: 04/08/17 Subjective:: She reports feeling very good today. Reports flatus and she is very hungry. Physical Exam - Physical Exam Vital Signs: Temp Pulse Resp BP Pulse Ox 98.6 F 85 20 120/72 100 04/08/17 07:42 04/08/17 07:42 04/08/17 07:42 04/08/17 07:42 04/08/17 07:42 Intake & Output 04/07/17 04/08/17 04/09/17 06:59 06:59 06:59 Intake Total 2000 4910 Output Total 480 2550 Balance 1520 2360 Weight 108.182 kg General appearance: PRESENT: no acute distress, well-developed, well-nourished Head exam: PRESENT: atraumatic, normocephalic GI/Abdominal exam: PRESENT: diminished bowel sounds - postive bowel sounds Result Laboratory Results: 04/08/17 05:48 04/07/17 17:14 04/06/17 04/07/17 04/07/17 14:47 17:14 17:14 WBC 18.3 H RBC 2.17 L Hgb 6.3 L Hct 18.6 L MCV 86 MCH 29.1 MCHC 33.9 RDW 15.1 H Plt Count 385 Sodium 130.7 L Potassium 3.3 L Chloride 98 Carbon Dioxide 26 Anion Gap 7 BUN 10 Creatinine 1.23 Est GFR ( Amer) > 60 Est GFR (Non-Af Amer) 51 L Glucose 85 Calcium 8.2 L Total Bilirubin 0.4 AST 20 ALT 23 Alkaline Phosphatase 46 Total Protein 4.6 L Albumin 2.4 L Blood Type A POSITIVE Antibody Screen NEGATIVE 04/08/17 05:48 WBC 16.4 H RBC 2.61 L Hgb 7.9 L Hct 22.6 L MCV 87 MCH 30.1 MCHC 34.8 RDW 16.0 H Plt Count 368 Sodium Potassium Chloride Carbon Dioxide Anion Gap BUN Creatinine Est GFR ( Amer) Est GFR (Non-Af Amer) Glucose Calcium Total Bilirubin AST ALT Alkaline Phosphatase Total Protein Albumin Blood Type Antibody Screen Impressions: Abdomen/Pelvis CT 04/07/17 00:00 IMPRESSION: uterus is identified. There are diffuse edematous or inflammatory changes in the subcutaneous fat in the lower abdomen and pelvis. There is diffuse thickening of the abdominal wall in the pelvis which may only represent postsurgical changes however these changes could also represent hematomas. There is associated scattered small gas collections presumably postsurgical in nature. Clinical correlation is recommended. Other findings as noted above Assessment & Plan - Diagnosis (1) Delivery by emergency Is this a current diagnosis for this admission?: Yes Plan: Her anemia is both from chronic anemia and acute blood loss with the c section. Bowel fxn is improving. Will check flat and upright KUB. She is feeling much better post transfusion. (2) Anemia Qualifiers: Anemia type: other cause Other causes of anemia: other cause, not classified Qualified Code(s): D64.89 - Other specified anemias Is this a current diagnosis for this admission?: No - Time Time Spent with patient: 15-24 minutes Critical Time spent with patient: 15-24 minutes Anticipated discharge: Home Within: within 48 hours - We need full return of bowel fxn prior to discharge home.
[2017-04-08] MEDS ORDERED: DIPH/PERTUSS(ACELL)/TETANUS VAC/PF 0.5 ML SYR (>=10YO) IM PRN (09:30)
[2017-04-08] MEDS ORDERED: MEASLES,MUMPS&RUBELLA VACC/PF 0.5 ML VIAL SUBCUT PRN (09:30)
[2017-04-08] MEDS: FAMOTIDINE 20 MG TABLET PO SCH (09:51)
[2017-04-08] MEDS: DOCUSATE SODIUM 100 MG CAPSULE PO SCH ×2 (09:51→17:19)
[2017-04-08] MEDS: PRENATAL VITAMIN W-O CA NO5/FE FUMARATE/FA CAPSULE PO SCH (09:51)
--- NOTE | 2017-04-08 10:26 | RADIOLOGY REPORT (SQ) ---
EXAM DESCRIPTION: ACUTE ABDOMEN SERIES COMPLETED DATE/TIME: 04/08/2017 9:38 am REASON FOR STUDY: abd pain (flat and upright AAS) COMPARISON: None. NUMBER OF VIEWS: Three views. TECHNIQUE: Frontal chest, supine abdomen and upright/decubitus abdomen radiographic images acquired. LIMITATIONS: None. FINDINGS: CHEST: Lungs clear of infiltrates. FREE AIR: None. No abnormal gas collections. BOWEL GAS PATTERN: There are multiple prominent air filled bowel loops most consistent with an ileus pattern. CALCIFICATIONS: No suspicious calcifications. HARDWARE: Surgical clips are identified in the right upper quadrant. SOFT TISSUES: No gross mass or suggestion of organomegaly. BONES: No acute fracture. No worrisome bone lesions. OTHER: No other significant finding. IMPRESSION: NO RADIOGRAPHIC EVIDENCE FOR ACUTE ABDOMINAL DISEASE. TECHNICAL DOCUMENTATION: JOB ID: [id number] [employer]- All Rights Reserved
[2017-04-09 04:37] LABS: HEPATITIS C VIRUS AB <0.1 s/co ratio (0.0-0.9)
[2017-04-09] MEDS: IBUPROFEN 800 MG TABLET PO SCH (05:41)
[2017-04-09] MEDS: FAMOTIDINE 20 MG TABLET PO SCH (10:53)
[2017-04-09] MEDS: HYDROCODONE/ACETAMINOPHEN 5-325 MG TABLET PO PRN (10:53)
[2017-04-09] MEDS: DOCUSATE SODIUM 100 MG CAPSULE PO SCH (10:53)
[2017-04-09] MEDS: PRENATAL VITAMIN W-O CA NO5/FE FUMARATE/FA CAPSULE PO SCH (10:53)
--- NOTE | 2017-04-09 12:16 | PDOC PROGRESS REPORT ---
Subjective-OB Subjective: Post Delivery Day: 31 year old. Denies any needs at this time. Ready to go home. Physical Exam (OB) Vital Signs: Temp Pulse Resp BP Pulse Ox 98.4 F 82 16 145/77 H 100 04/09/17 11:51 04/09/17 11:51 04/09/17 11:51 04/09/17 11:51 04/09/17 11:51 Intake & Output 04/08/17 04/09/17 04/10/17 06:59 06:59 06:59 Intake Total 4910 840 Output Total 2550 750 Balance 2360 90 - PIH/Pre-Eclampsia Clonus: Negative Headache: Absent - Dressing Removed: Yes Incision: Dressing Closure Type: Sutures - Lochia Lochia Amount: Scant < 10 ml Lochia Color: Rubra/Red - Abdomen Description: Firm, Flat Hernia Present: No Bowel Sounds: Normoactive Flatus Presence: Present Stool: No Fundal Description: Firm Fundal Height: u/u - u/2 Objective-Diagnostic Laboratory: 04/08/17 05:48 04/07/17 17:14 Assessment and Plan(PN) - Time Spent with Patient Medications reviewed and adjusted accordingly: Yes - Disposition Anticipated Discharge: Home
--- NOTE | 2017-04-09 12:28 | PDOC DISCHARGE SUMMARY ---
Final Diagnosis Discharge Date: 04/09/17 - Final Diagnosis (1) Acute blood loss anemia Is this a current diagnosis for this admission?: Yes (2) Delivery by emergency Is this a current diagnosis for this admission?: Yes (3) Ileus Is this a current diagnosis for this admission?: Yes (4) Polyhydramnios Is this a current diagnosis for this admission?: Yes (5) premature rupture of membranes (PPROM) delivered, current hospitalization Is this a current diagnosis for this admission?: Yes Discharge Data - Discharge Medication Home Medications: Pnv95/Ferrous Fumarate/FA [ Formula Tablet] 1 each PO DAILY 01/19/17 Docusate Sodium [Colace 100 mg Capsule] 100 mg PO BID 30 Days #60 capsule Hydrocodone/Acetaminophen [[place] 5-325 mg Tablet] 1 tab PO Q4HP PRN 7 Days #20 tablet 04/09/17 Ibuprofen [Motrin 800 mg Tablet] 800 mg PO Q6 10 Days #30 tablet 04/09/17 Gestational Age: 37.2 wks Reason(s) for Admission: Ceasarean Section-Repeat Procedures: Ultrasound Intrapartum Procedure(s): : Low Cervical, Transverse - Data Baby 1 Male at 1 minute: 8 at 5 minutes: 9 Weight: 4.111 kg Home with Mother: Yes Complications: No - Diagnosis Test Laboratory: Temp Pulse Resp BP Pulse Ox 98.4 F 82 16 145/77 H 100 04/09/17 11:51 04/09/17 11:51 04/09/17 11:51 04/09/17 11:51 04/09/17 11:51 04/06/17 04/06/17 04/07/17 13:00 14:47 06:12 RBC 3.29 L 2.45 L Hgb 9.6 L 7.1 L D Hct 28.5 L 21.6 L Urine Opiates Screen NEGATIVE 04/07/17 04/08/17 17:14 05:48 RBC 2.17 L 2.61 L Hgb 6.3 L 7.9 L Hct 18.6 L 22.6 L Urine Opiates Screen - Discharge information/Instructions Discharge Activity: Activity As Tolerated, Balance Activity w/Rest, No Lifting Over 10 Pounds, No Lifting/Push/Pulling, Non-Ambulatory Child, Pelvic Rest, Slowly Increase Activity, No tub bath Discharge Diet: Regular Disposition: HOME, SELF-CARE Follow up with: [facility] in: 1, Weeks
[2017-04-09 12:36] VITALS: BP 129/75
== END 2017-04-09 13:25 | disposition home or self-care (01) | DRG 765 ==
LOC: LC 12:32 → LR 13:59 → 2N 18:49
PROVIDERS: ADMIT Obstetrics & Gynecology; ATTEND Obstetrics & Gynecology
PROC: 10D00Z1 Extraction of Products of Conception, Low, Open Approach (ICD-10-PCS; principal; 2017-04-06)
PROC: 0UB70ZZ Excision of Bilateral Fallopian Tubes, Open Approach (ICD-10-PCS; 2017-04-06)
PROC: 4A1HXCZ Monitoring of Products of Conception, Cardiac Rate, External Approach (ICD-10-PCS; 2017-04-06)
PROC: 30233N1 Transfusion of Nonautologous Red Blood Cells into Peripheral Vein, Percutaneous Approach (ICD-10-PCS; 2017-04-07)
DX: O40.3XX0 Polyhydramnios, third trimester, not applicable or unspecified (principal); D62 Acute posthemorrhagic anemia; K56.7 Ileus, unspecified; O99.02 Anemia complicating childbirth; O42.02 Full-term premature rupture of membranes, onset of labor within 24 hours of rupture; O32.2XX0 Maternal care for transverse and oblique lie, not applicable or unspecified; F17.210 Nicotine dependence, cigarettes, uncomplicated; O99.334 Smoking (tobacco) complicating childbirth; O99.52 Diseases of the respiratory system complicating childbirth; J45.909 Unspecified asthma, uncomplicated; O99.62 Diseases of the digestive system complicating childbirth; Z88.3 Allergy status to other anti-infective agents; Z30.2 Encounter for sterilization; Z3A.37 37 weeks gestation of pregnancy; Z37.0 Single live birth
CPT/HCPCS: 1961; 36415; 36430; 59025; 74022; 74177; 80053; 80307; 81005; 84112; 85025; 85027; 86592; 86701; 86762; 86803; 86804; 86850; 86900; 86901; 86920; 87340; 88302; J0131; J0690; J1170; J1200; J1885; J2175; J2250; J2405; J2550; J2590; J3010; J3480; J3490; J7120; P9016; S0119

== ENCOUNTER 2017-04-10 17:38 | Emergency (ER) | payer OTHER, MEDICAID ==
[2017-04-10 17:51] VITALS: BP 149/83
[2017-04-10 19:35] LABS: ABSOLUTE EOSINOPHILS # (AUTO) 0.3 10^3/uL (0.0-0.6); ABSOLUTE LYMPHOCYTES (AUTO) 3.5 10^3/uL (0.5-4.7); ABSOLUTE MONOCYTES (AUTO) 0.6 10^3/uL (0.1-1.4); ABSOLUTE NEUT (AUTO) 5.9 10^3/uL (1.7-8.2); BASOPHILS % (AUTO) 0.5 % (0-2); EOSINOPHILS % (AUTO) 3.1 % (0-6); HEMATOCRIT 23.5 % (36.0-47.0); HGB HCT DIFFERENCE 0.5; LYMPHOCYTES % (AUTO) 33.7 % (13-45); MEAN CORPUSCULAR HEMOGLOBIN 29.7 pg (27.0-33.4); MEAN CORPUSCULAR HGB CONC 34.2 g/dL (32.0-36.0); MEAN CORPUSCULAR VOLUME 87 fl (80-97); MONOCYTES % (AUTO) 5.9 % (3-13); SEGMENTED NEUTROPHILS % (AUTO) 56.8 % (42-78); WHITE BLOOD COUNT 10.4 10^3/uL (4.0-10.5)
[2017-04-10 19:54] LABS: ALANINE AMINOTRANSFERASE 30 U/L (9-52); ALBUMIN 2.8 g/dL (3.5-5.0); ALKALINE PHOSPHATASE 60 U/L (38-126); ANION GAP 5 (5-19); ASPARTATE AMINO TRANSFERASE 29 U/L (14-36); BILIRUBIN,DIRECT 0.3 mg/dL (0.0-0.4); BILIRUBIN,TOTAL 0.7 mg/dL (0.2-1.3); BLOOD UREA NITROGEN 14 mg/dL (7-20); CALCIUM 9.6 mg/dL (8.4-10.2); CARBON DIOXIDE 27 mmol/L (22-30); CHLORIDE 105 mmol/L (98-107); CREATININE RESULT 0.89 mg/dL (0.52-1.25); GLUCOSE 77 mg/dL (75-110); POTASSIUM 4.3 mmol/L (3.6-5.0); SODIUM 137.3 mmol/L (137-145); TOTAL PROTEIN 5.3 g/dL (6.3-8.2)
--- NOTE | 2017-04-10 20:05 | ER Document Report ---
ED Medical Screen (RME) - General Chief Complaint: Leg Swelling Stated Complaint: SWELLING IN LEGS Time Seen by Provider: 04/10/17 18:51 Notes: Patient delivered by approximately 3 days ago. Now she presents with headache foggy vision and dizziness. She also has noticed that her left leg is significantly more swollen than the right leg. She had no trouble with preeclampsia or hypertension during the . She did require a transfusion after the . TRAVEL OUTSIDE OF THE [place] IN LAST 30 DAYS: No - Related Data Allergies/Adverse Reactions: levofloxacin [From Levaquin] Allergy (Verified 04/06/17 12:49) nickel Allergy (Verified 04/06/17 15:02) Past Medical History - Social History Chew tobacco use (# tins/day): No Frequency of alcohol use: None Drug Abuse: None Pulmonary Medical History: Reports: Hx Asthma, Hx Pneumonia Endocrine Medical History: Denies: Hx Diabetes Mellitus Type 2 Renal/ Medical History: Reports: Hx Ovarian Cysts, Hx Pelvic Inflammatory Disease. Denies: Hx Peritoneal Dialysis Past Surgical History: Reports: Hx Section, Hx Cholecystectomy, Hx Tonsillectomy - Immunizations Immunizations up to date: Yes Hx Diphtheria, Pertussis, Tetanus Vaccination: Yes Physical Exam - Vital signs Vitals: Temp Pulse Resp BP Pulse Ox 99.0 F 95 16 149/83 H 98 04/10/17 17:44 04/10/17 17:44 04/10/17 17:44 04/10/17 17:44 04/10/17 17:44 Course - Vital Signs Vital signs: Temp Pulse Resp BP Pulse Ox 99.0 F 95 16 149/83 H 98 04/10/17 17:44 04/10/17 17:44 04/10/17 17:44 04/10/17 17:44 04/10/17 17:44 - Laboratory Result Diagrams: 04/10/17 19:20 04/10/17 19:20 Laboratory results interpreted by me: 04/10/17 04/10/17 19:20 19:20 RBC 2.70 L Hgb 8.0 L Hct 23.5 L RDW 16.0 H Plt Count 569 H Total Protein 5.3 L Albumin 2.8 L
--- NOTE | 2017-04-10 23:13 | RADIOLOGY REPORT (SQ) ---
EXAM DESCRIPTION: VENOUS UNILATERAL LOWER COMPLETED DATE/TIME: 04/10/2017 11:02 pm REASON FOR STUDY: left leg pain/swelling COMPARISON: None. TECHNIQUE: Dynamic and static henriquez scale and color images acquired of the left leg venous system. Se lected spectral images acquired with additional compression and augmentation maneuvers. The contralat eral common femoral vein and saphenofemoral junction were also imaged. Images stored on PACS. LIMITATIONS: None. FINDINGS: COMMON FEMORAL: Normal phasicity, compression and augmentation. No visualized echogenic ma terial on henriquez scale. No defects on color images. FEMORAL: Normal compression and augmentation. No visualized echogenic material on henriquez scale. No defe cts on color images. POPLITEAL: Normal compression, augmentation. No visualized echogenic material on henriquez scale. No defec ts on color images. CALF VESSELS: Normal compression, augmentation. No visualized echogenic material on henriquez scale. No de fects on color images. GSV and SSV: Normal compression, augmentation. No visualized echogenic material on henriquez scale. No def ects on color images. ANY DEEP VENOUS INSUFFICIENCY: Not evaluated. ANY EVIDENCE OF POPLITEAL CYST: No. OTHER: No other significant finding. CONTRALATERAL COMMON FEMORAL VEIN AND SAPHENOFEMORAL JUNCTION: Normal phasicity, compression and augmentation. No visualized echogenic material on henriquez scale. No de fects on color images. IMPRESSION: NO EVIDENCE OF DVT OR SVT IN THE LEFT LEG. TECHNICAL DOCUMENTATION: JOB ID: [id number] [employer]- All Rights Reserved
== END 2017-04-10 23:25 | disposition left against medical advice (07) ==
LOC: ER 17:38
DX: O90.89 Other complications of the puerperium, not elsewhere classified (principal); M79.89 Other specified soft tissue disorders; R51 Headache; R42 Dizziness and giddiness; O99.53 Diseases of the respiratory system complicating the puerperium; J45.909 Unspecified asthma, uncomplicated; Z53.20 Procedure and treatment not carried out because of patient's decision for unspecified reasons
CPT/HCPCS: 36415; 80053; 85025; 93971; 99281

== ENCOUNTER 2017-05-11 10:24 | Emergency (ER) | payer OTHER, MEDICAID ==
--- NOTE | 2017-05-11 10:52 | ER Document Report ---
ED Respiratory Problem - General Chief Complaint: Shortness Of Breath Stated Complaint: DIFFICULTY BREATHING Time Seen by Provider: 05/11/17 10:28 Mode of Arrival: Medic Information source: Patient, Emergency Med Personnel TRAVEL OUTSIDE OF THE [place] IN LAST 30 DAYS: No - HPI Patient complains to provider of: Short of breath Onset: This morning Duration: Better - AFTER EMS TREATMENT Initiating Event: Out of meds - RAN OUT OF PREDNISONE Quality of pain: No pain Context: Hx asthma Short of Breath: Moderate Cough: Nonproductive Sputum amount: None At home treatment: Bronchodilators, Oral steroids, Singulair EMS treatments: Bronchodilators, Solumedrol Associated symptoms: Cough, Wheezing. denies: Chest pain/discomfort, Chills, Fever, Sweaty Similar symptoms previously: Yes - NOT RECENT Recently seen / treated by doctor: No - HAS APPT. W/ PULMONARY IN [place] - Related Data Allergies/Adverse Reactions: levofloxacin [From Levaquin] Allergy (Verified 04/06/17 12:49) nickel Allergy (Verified 04/06/17 15:02) Past Medical History - General Information source: Patient - Social History Smoking Status: Former Smoker Cigarette use (# per day): No Chew tobacco use (# tins/day): No Frequency of alcohol use: None Drug Abuse: None Lives with: Spouse/Significant other Family History: Reviewed & Not Pertinent, Arthritis, Hypertension Patient has suicidal ideation: No Patient has homicidal ideation: No - Past Medical History Cardiac Medical History: Reports: None Pulmonary Medical History: Reports: Hx Asthma, Hx Pneumonia EENT Medical History: Reports: None Neurological Medical History: Reports: None Endocrine Medical History: Reports: None. Denies: Hx Diabetes Mellitus Type 2 Renal/ Medical History: Reports: Hx Ovarian Cysts, Hx Pelvic Inflammatory Disease. Denies: Hx Peritoneal Dialysis Malignancy Medical History: Reports: None GI Medical History: Reports: None Musculoskeltal Medical History: Reports None Psychiatric Medical History: Reports: None Past Surgical History: Reports: Hx Section, Hx Cholecystectomy, Hx Tonsillectomy - Immunizations Immunizations up to date: Yes Hx Diphtheria, Pertussis, Tetanus Vaccination: Yes Review of Systems - Review of Systems Constitutional: No symptoms reported EENT: No symptoms reported Cardiovascular: No symptoms reported Respiratory: See HPI Gastrointestinal: Nausea, Vomiting Genitourinary: No symptoms reported Female Genitourinary: Other - BREAST FEEDING Musculoskeletal: No symptoms reported Skin: No symptoms reported Hematologic/Lymphatic: No symptoms reported Neurological/Psychological: No symptoms reported Physical Exam - Vital signs Vitals: Temp 97.9 F 05/11/17 10:38 Interpretation: Tachycardic, Tachypneic. No: Febrile - General General appearance: Appears well, Alert In distress: None - HEENT Head: Normocephalic Eyes: Normal Conjunctiva: Normal Ears: Normal Nasal: Normal Mouth/Lips: Normal Mucous membranes: Normal - Respiratory Respiratory status: No respiratory distress Chest status: Nontender Breath sounds: Rales - BILAT. BASES, Wheezing - MODERATE EXPIRATORY, ALL LOBES - Cardiovascular Rhythm: Regular Heart sounds: Normal auscultation Murmur: No - Abdominal Inspection: Normal Distension: No distension Bowel sounds: Normal - Back Back: Normal - Extremities General upper extremity: Normal inspection General lower extremity: Normal inspection. No: Edema - Neurological Neuro grossly intact: Yes Cognition: Normal Orientation: AAOx4 - Psychological Associated symptoms: Normal affect, Normal mood - Skin Skin Temperature: Warm Skin Moisture: Dry Skin Color: Normal Skin Turgor: Elastic Course - Re-evaluation Re-evalutation: 05/11/17 14:01 Patient states she is much improved. On examination, she is in no distress. Vital signs are normal. Auscultation reveals a very small amount of end expiratory wheezing in the bases. There are no rales or rhonchi. - Vital Signs Vital signs: Temp Pulse Resp BP Pulse Ox 97.9 F 05/11/17 10:38 - Laboratory Result Diagrams: 05/11/17 10:30 05/11/17 10:30 Laboratory results interpreted by me: 05/11/17 05/11/17 05/11/17 10:30 10:30 10:30 WBC 18.9 H RDW 17.4 H Plt Count 542 H Abs Neuts (Manual) 9.3 H Abs Lymphs (Manual) 7.7 H Abs Monocytes (Manual) 1.5 H Carbon Dioxide 21 L Calcium 10.3 H NT-Pro-B Natriuret Pep 960 H - Diagnostic Test Radiology reviewed: Image reviewed, Reports reviewed - EKG Interpretation by Me EKG shows normal: Sinus rhythm, [place], Intervals, QRS Complexes. abnormal: ST-T Waves - LAT. T ABNLS, NS. Rate: Tachycardia P Waves: LAE Discharge - Discharge Clinical Impression: Asthma exacerbation Condition: Stable Disposition: HOME, SELF-CARE Instructions: Asthma ([facility]), Corticosteroid Medication ([facility]), Inhaled Bronchodilators ([facility]) Additional Instructions: BEGIN TAKING PREDNISONE DIRECTED TOMORROW (SATURDAY). CONTINUE ALL OTHER MEDS USUAL. FOLLOW UP WITH YOUR PRIMARY CARE PROVIDER WITHIN ONE WEEK. FOLLOW UP WITH DR. LOPEZ SCHEDULED. Prescriptions: Prednisone [Deltasone 10 mg Tablet] 10 mg PO ASDIR PRN #21 tablet PRN Reason:
[2017-05-11 11:03] LABS: ALANINE AMINOTRANSFERASE 26 U/L (9-52); ALBUMIN 4.2 g/dL (3.5-5.0); ALKALINE PHOSPHATASE 52 U/L (38-126); ANION GAP 15 (5-19); ASPARTATE AMINO TRANSFERASE 17 U/L (14-36); BILIRUBIN,DIRECT 0.4 mg/dL (0.0-0.4); BILIRUBIN,TOTAL 0.9 mg/dL (0.2-1.3); BLOOD UREA NITROGEN 17 mg/dL (7-20); CALCIUM 10.3 mg/dL (8.4-10.2); CARBON DIOXIDE 21 mmol/L (22-30); CHLORIDE 107 mmol/L (98-107); CREATININE RESULT 0.83 mg/dL (0.52-1.25); GLUCOSE 93 mg/dL (75-110); MAGNESIUM 1.7 mg/dL (1.6-2.3); POTASSIUM 4.1 mmol/L (3.6-5.0); SODIUM 142.7 mmol/L (137-145); TOTAL PROTEIN 7.1 g/dL (6.3-8.2)
[2017-05-11 11:08] LABS: HEMATOCRIT 40.2 % (36.0-47.0); HEMOGLOBIN 13.2 g/dL (12.0-15.5); HGB HCT DIFFERENCE -0.6; MEAN CORPUSCULAR HEMOGLOBIN 27.9 pg (27.0-33.4); MEAN CORPUSCULAR HGB CONC 32.8 g/dL (32.0-36.0); MEAN CORPUSCULAR VOLUME 85 fl (80-97); RED BLOOD COUNT 4.72 10^6/uL (3.72-5.28); RED CELL DISTRIBUTION WIDTH 17.4 % (11.5-14.0); WHITE BLOOD COUNT 18.9 10^3/uL (4.0-10.5)
[2017-05-11 11:24] LABS: BASOPHILS % (MANUAL) 1 % (0-2); EOSINOPHILS % (MANUAL) 1 % (0-6); LYMPHOCYTES % (MANUAL) 41 % (13-45); TOTAL CELLS COUNTED 100
[2017-05-11 11:25] LABS: ANISOCYTOSIS 1+; HYPOCHROMASIA SLIGHT; OVALOCYTES SLIGHT; POIKILOCYTOSIS SLIGHT
--- NOTE | 2017-05-11 11:34 | RADIOLOGY REPORT (SQ) ---
EXAM DESCRIPTION: CHEST PA/LAT COMPLETED DATE/TIME: 05/11/2017 11:20 am REASON FOR STUDY: DYSPNEA, WHEEZING COMPARISON: Two-view chest 12/04/2014, 11/13/2014, 10/17/2014, 10/06/2014 CT angio chest 10/06/2014 EXAM PARAMETERS: NUMBER OF VIEWS: two views TECHNIQUE: Digital Frontal and Lateral radiographic views of the chest acquired. RADIATION DOSE: NA LIMITATIONS: none FINDINGS: LUNGS AND PLEURA: No opacities, masses or pneumothorax. No pleural effusion. MEDIASTINUM AND HILAR STRUCTURES: No masses or contour abnormalities. HEART AND VASCULAR STRUCTURES: Heart normal size. No evidence for failure. BONES: No acute findings. HARDWARE: None in the chest. OTHER: No other significant finding. IMPRESSION: NO SIGNIFICANT RADIOGRAPHIC FINDING IN THE CHEST. TECHNICAL DOCUMENTATION: JOB ID: [id number] [employer]- All Rights Reserved
[2017-05-11 14:41] VITALS: BP 117/63
[2017-05-11 14:42] LABS: APPEARANCE,URINE CLEAR; BILIRUBIN,URINE NEGATIVE (NEGATIVE); GLUCOSE, URINE NEGATIVE (NEGATIVE); KETONES,URINE NEGATIVE (NEGATIVE); LEUKOCYTE ESTERASE,URINE TRACE (NEGATIVE); NITRITE,URINE NEGATIVE (NEGATIVE); PROTEIN,URINE NEGATIVE (NEGATIVE); URINE SPECIFIC GRAVITY 1.024; UROBILINOGEN,URINE NEGATIVE mg/dL (<2.0)
--- NOTE | 2017-05-11 16:59 | EKG REPORT ---
SEVERITY:- ABNORMAL ECG - SINUS TACHYCARDIA PROBABLE LEFT ATRIAL ABNORMALITY NONSPECIFIC T ABNORMALITIES, LATERAL LEADS : Confirmed by: Raymond Lovelace MD 11-May-2017 16:59:11
== END 2017-05-11 14:41 | disposition home or self-care (01) ==
LOC: ER 10:24
DX: J45.901 Unspecified asthma with (acute) exacerbation (principal); R06.02 Shortness of breath; Z87.891 Personal history of nicotine dependence
CPT/HCPCS: 36415; 71020; 80053; 81001; 83735; 83880; 85025; 93005; 93010; 99285

== ENCOUNTER 2017-08-18 13:02 | Inpatient (IN) | payer MEDICAID, OTHER ==
[2017-08-18] MEDS ORDERED: METHYLPREDNISOLONE INJ 125 MG/2 ML SDV IV ONE (13:41)
[2017-08-18] MEDS ORDERED: NORMAL SALINE 1000 ML 1,000 ML IV ONE (13:41)
[2017-08-18] MEDS ORDERED: IPRATROPIUM/ALBUTEROL 0.5-2.5 MG/3 ML AMPUL NEB ONE (13:41)
--- NOTE | 2017-08-18 13:44 | ER Document Report ---
ED Medical Screen (RME) - General Chief Complaint: Shortness Of Breath Stated Complaint: SHORTNESS OF BREATH,COUGH Time Seen by Provider: 08/18/17 13:36 Notes: 32-year-old female with asthma who uses inhalers nebulizers and a new shot called Julio C. She finished a 5 day course of prednisone 60 mg a day on Saturday 2 days ago. Wheezing is gotten worse since then. She has diffuse inspiratory wheezes and is tachycardic. She has had a nonproductive cough with out fever. She does feel like her chest is tight and is short of breath. I have greeted and performed a rapid initial assessment of this patient. A comprehensive ED assessment and evaluation of the patient, analysis of test results and completion of the medical decision making process will be conducted by additional ED providers. TRAVEL OUTSIDE OF THE [place] IN LAST 30 DAYS: No - Related Data Allergies/Adverse Reactions: levofloxacin [From Levaquin] Allergy (Verified 04/06/17 12:49) nickel Allergy (Verified 04/06/17 15:02) Past Medical History - Social History Chew tobacco use (# tins/day): No Frequency of alcohol use: None Drug Abuse: None Pulmonary Medical History: Reports: Hx Asthma, Hx Pneumonia Endocrine Medical History: Denies: Hx Diabetes Mellitus Type 2 Renal/ Medical History: Reports: Hx Ovarian Cysts, Hx Pelvic Inflammatory Disease. Denies: Hx Peritoneal Dialysis Past Surgical History: Reports: Hx Section, Hx Cholecystectomy, Hx Tonsillectomy - Immunizations Immunizations up to date: Yes Hx Diphtheria, Pertussis, Tetanus Vaccination: Yes Physical Exam - Vital signs Vitals: Temp Pulse Resp BP Pulse Ox 98.7 F 127 H 32 H 142/77 H 94 08/18/17 13:09 08/18/17 13:09 08/18/17 13:09 08/18/17 13:09 08/18/17 13:09 Course - Vital Signs Vital signs: Temp Pulse Resp BP Pulse Ox 98.7 F 127 H 32 H 142/77 H 94 08/18/17 13:09 08/18/17 13:09 08/18/17 13:09 08/18/17 13:09 08/18/17 13:09
[2017-08-18] MEDS: MAGNESIUM SULFATE/D5W 1 GM/100 ML RTUPB IV SCH ×2 (14:18→15:09)
[2017-08-18 14:33] LABS: ABSOLUTE BASOPHILS # (AUTO) 0.1 10^3/uL (0.0-0.2); ABSOLUTE EOSINOPHILS # (AUTO) 0.1 10^3/uL (0.0-0.6); ABSOLUTE LYMPHOCYTES (AUTO) 4.3 10^3/uL (0.5-4.7); ABSOLUTE MONOCYTES (AUTO) 0.7 10^3/uL (0.1-1.4); ABSOLUTE NEUT (AUTO) 11.6 10^3/uL (1.7-8.2); BASOPHILS % (AUTO) 0.6 % (0-2); EOSINOPHILS % (AUTO) 0.5 % (0-6); HEMATOCRIT 42.5 % (36.0-47.0); HEMOGLOBIN 14.3 g/dL (12.0-15.5); LYMPHOCYTES % (AUTO) 25.7 % (13-45); MEAN CORPUSCULAR HEMOGLOBIN 27.6 pg (27.0-33.4); MEAN CORPUSCULAR HGB CONC 33.6 g/dL (32.0-36.0); MEAN CORPUSCULAR VOLUME 82 fl (80-97); MONOCYTES % (AUTO) 4.3 % (3-13); PLATELET COUNT 506 10^3/uL (150-450); RED BLOOD COUNT 5.17 10^6/uL (3.72-5.28); SEGMENTED NEUTROPHILS % (AUTO) 68.9 % (42-78); TOTAL CELLS COUNTED % (AUTO) 100 %; WHITE BLOOD COUNT 16.9 10^3/uL (4.0-10.5)
--- NOTE | 2017-08-18 14:58 | RADIOLOGY REPORT (SQ) ---
EXAM DESCRIPTION: CHEST SINGLE VIEW COMPLETED DATE/TIME: 08/18/2017 2:51 pm REASON FOR STUDY: cough, shortness of breath COMPARISON: 05/11/2017 EXAM PARAMETERS: NUMBER OF VIEWS: One view. TECHNIQUE: Single frontal radiographic view of the chest acquired. RADIATION DOSE: NA LIMITATIONS: None. FINDINGS: LUNGS AND PLEURA: No opacities, masses or pneumothorax. No pleural effusion. MEDIASTINUM AND HILAR STRUCTURES: No masses. Contour normal. HEART AND VASCULAR STRUCTURES: Heart normal in size. Normal vasculature. BONES: No acute findings. HARDWARE: None in the chest. OTHER: No other significant finding. IMPRESSION: NO ACUTE RADIOGRAPHIC FINDING IN THE CHEST. TECHNICAL DOCUMENTATION: JOB ID: [id number] [employer]- All Rights Reserved
[2017-08-18] MEDS ORDERED: ALBUTEROL SULFATE 0.083% NEB 2.5 MG/3 ML AMPUL NEB ONE (15:09)
[2017-08-18 15:18] LABS: VENOUS BLOOD BASE EXCESS 2.5 mmol/L; VENOUS BLOOD PCO2 46.4 mmHg (35-63); VENOUS BLOOD PH 7.4 (7.30-7.42)
[2017-08-18 15:34] LABS: ALANINE AMINOTRANSFERASE 28 U/L (9-52); ALKALINE PHOSPHATASE 46 U/L (38-126); ANION GAP 8 (5-19); ASPARTATE AMINO TRANSFERASE 14 U/L (14-36); BILIRUBIN,DIRECT 0.2 mg/dL (0.0-0.4); BLOOD UREA NITROGEN 16 mg/dL (7-20); CALCIUM 9.4 mg/dL (8.4-10.2); CARBON DIOXIDE 29 mmol/L (22-30); CHLORIDE 104 mmol/L (98-107); GLUCOSE 93 mg/dL (75-110); POTASSIUM 3.8 mmol/L (3.6-5.0); SODIUM 141.3 mmol/L (137-145); TOTAL PROTEIN 7.2 g/dL (6.3-8.2)
[2017-08-18] MEDS ORDERED: ACETAMINOPHEN 325 MG TABLET PO ONE (15:34)
[2017-08-18] MEDS ORDERED: ALBUTEROL SULFATE 0.083% NEB 2.5 MG/3 ML AMPUL NEB PRN (16:22)
[2017-08-18] MEDS ORDERED: ACETAMINOPHEN 325 MG TABLET PO PRN (16:22)
--- NOTE | 2017-08-18 16:25 | ER Document Report ---
ED Respiratory Problem - General Chief Complaint: Shortness Of Breath Stated Complaint: SHORTNESS OF BREATH,COUGH Time Seen by Provider: 08/18/17 13:36 Notes: Patient is a 31-year-old female presents emergency department complaining of worsening asthma, shortness of breath and cough since her prednisone ran out 2 days ago. Patient states that she has been on approximately 10 mg of prednisone since beginning of May per her primary care recommendation. She states she ran out the beginning of July went to an urgent care where she was put on a 5 day burst treatment of 60 mg a day which ran out 2 days ago and her shortness of breath came back. States she has been doing donuts at home without significant improvement. Home medications are Advair, Nucala once a month which she started in June. Patient is a current smoker. She has any productive cough, fever, chills. PCP: Magda at [facility] [place]m: [employer] TRAVEL OUTSIDE OF THE [place] IN LAST 30 DAYS: No - Related Data Allergies/Adverse Reactions: levofloxacin [From [facility]] Allergy (Verified 04/06/17 12:49) nickel Allergy (Verified 04/06/17 15:02) Past Medical History - Social History Smoking Status: Current Every Day Smoker Chew tobacco use (# tins/day): No Frequency of alcohol use: None Drug Abuse: None Family History: Reviewed & Not Pertinent, Arthritis, Hypertension Patient has suicidal ideation: No Patient has homicidal ideation: No Pulmonary Medical History: Reports: Hx Asthma, Hx Pneumonia Endocrine Medical History: Denies: Hx Diabetes Mellitus Type 2 Renal/ Medical History: Reports: Hx Ovarian Cysts, Hx Pelvic Inflammatory Disease. Denies: Hx Peritoneal Dialysis Past Surgical History: Reports: Hx Section, Hx Cholecystectomy, Hx Tonsillectomy - Immunizations Immunizations up to date: Yes Hx Diphtheria, Pertussis, Tetanus Vaccination: Yes Review of Systems - Review of Systems Constitutional: No symptoms reported Cardiovascular: No symptoms reported Respiratory: See HPI Gastrointestinal: No symptoms reported -: Yes All other systems reviewed and negative Physical Exam - Vital signs Vitals: Temp Pulse Resp BP Pulse Ox 98.7 F 127 H 32 H 142/77 H 94 08/18/17 13:09 08/18/17 13:09 08/18/17 13:09 08/18/17 13:09 08/18/17 13:09 - Notes Notes: PHYSICAL EXAM GENERAL: Alert, interacts well. Patient having difficulty completing her sentences due to shortness of breath HEAD: Normocephalic, atraumatic. EYES: Pupils equal, round, and reactive to light. Extraocular movements intact. ENT: Oral mucosa moist, tongue midline. NECK: Full range of motion. Suppl spine achea midline. LUNGS: diffuse wheezes and rhonchi No respiratory distress. HEART: Tachycardic with regular rhythm. No murmurs, gallops, or rubs. EXTREMITIES: Moves all 4 extremities spontaneously. No edema, radial and dorsalis pedis pulses 2/4 bilaterally. No cyanosis. NEUROLOGICAL: Alert and oriented x4. Normal speech. PSYCH: Normal affect, normal mood. SKIN: Warm, dry, normal turgor. No rashes or lesions noted. Course - Re-evaluation Re-evalutation: 08/18/17 16:24 Patient is a 31-year-old female who is hemodynamically stable, no acute distress and afebrile. Patient has improved after IV magnesium, duo nebs and site Medrol given the emergency department. Patient was ambulated around the department after medications with tachypnea, tachycardia and satting approximately 88%. based on patient's previous outpatient course and presentation after ER interventions, patient has failed outpatient treatment will be admitted for asthma exacerbation. Patient has been accepted by Dr. Booker to a medical floor. - Vital Signs Vital signs: Temp Pulse Resp BP Pulse Ox 98.7 F 102 H 20 126/74 H 97 08/18/17 13:09 08/18/17 18:14 08/18/17 18:14 08/18/17 18:14 08/18/17 18:14 - Laboratory Result Diagrams: 08/18/17 14:23 08/18/17 15:04 Laboratory results interpreted by me: 08/18/17 14:23 WBC 16.9 H RDW 16.0 H Plt Count 506 H Absolute Neutrophils 11.6 H - Diagnostic Test Radiology reviewed: Image reviewed, Reports reviewed Discharge - Discharge Clinical Impression: Asthma exacerbation Qualifiers: Asthma severity: severe Asthma persistence: persistent Qualified Code(s): J45.51 - Severe persistent asthma with (acute) exacerbation Condition: Stable Disposition: ADMITTED INPATIENT Admitting Provider: Hugh Booker Unit Admitted: Medical Floor
[2017-08-18] MEDS ORDERED: NICOTINE 14 MG/24 HR PATCH.TD24 TD ONE (16:29)
--- NOTE | 2017-08-18 18:13 | PDOC H&P ---
History of Present Illness Admission Date/PCP: 08/18/17 16:42 Patient complains of: Has not been able to breath for the past couple of days History of Present Illness: KEEGAN ADAM is a 31 year old female who presents to ED complaining of progressive shortness of breath for the past couple of days. Patient states that her breathing has not been doing well since May. She had seen her institution director and prescribed a burst of prednisone. She had been taking prednisone for the most part on a monthly basis since May with not much relief of symptoms. Patient admits that she had been diagnosed with asthma 3 years ago. At that point in time she was not smoking. Patient acknowledges that she is under a lot of stress and had been smoking around half to a pack per day. She smokes outside the house as well as her . Patient also complains of having difficulty sleeping. She takes care of her 3-month-old baby and her 3 years old. She also takes care of her who still immature despite being a year older than her. Patient lives in a house that is around 10 years old. Her two kids at the present time have a cold. Patient uses Advair at home as well as nebulizer treatments. She gets a monthly shot for the management of asthma. She has been on this medication since June. She was seen at a local urgent care and placed on prednisone tapering dose with no improvement. On arrival to emergency room pulse ox was 88% at room air and had to be placed on 2 L of oxygen by nasal cannula. Patient was administered DuoNeb 4 and Solu-Medrol. Since it was deemed that patient had failed outpatient therapy our service was consulted and prompted to admit for further management. Past Medical History Pulmonary Medical History: Reports: Asthma, Pneumonia EENT Medical History: Reports: None Endocrine Medical History: Reports: Other - Gestational diabetes Denies: Diabetes Mellitus Type 2 Renal/ Medical History: Reports: None Malignancy Medical History: Reports: None GI Medical History: Reports: None Musculoskeltal Medical History: Reports: None Skin Medical History: Reports: None Psychiatric Medical History: Reports: Tobacco Dependency Traumatic Medical History: Reports: None Hematology: Denies: Anemia Infectious Medical History: Reports: None Past Surgical History Past Surgical History: Reports: Section, Cholecystectomy, Tonsillectomy Social History Smoking Status: Current Every Day Smoker Cigarettes Packs Per Day: 1 Frequency of Alcohol Use: Occasional Hx Recreational Drug Use: No Drugs: None Hx Prescription Drug Abuse: No - Advance Directive Resuscitation Status: Full Code Family History Family History: Reviewed & Not Pertinent, Arthritis, Hypertension Parental Family History Reviewed: Yes Children Family History Reviewed: Yes Sibling(s) Family History Reviewed.: Yes Medication/Allergy Home Medications: Pnv No.95/Ferrous Fum/Folic AC [ Formula Tablet] 1 each PO DAILY Docusate Sodium [Colace 100 mg Capsule] 100 mg PO BID 30 Days #60 capsule Hydrocodone/Acetaminophen [Doran 5-325 mg Tablet] 1 tab PO Q4HP PRN 7 Days #20 tablet 04/09/17 Ibuprofen [Motrin 800 mg Tablet] 800 mg PO Q6 10 Days #30 tablet 04/09/17 Prednisone [Deltasone 10 mg Tablet] 10 mg PO ASDIR PRN #21 tablet 05/11/17 Allergies/Adverse Reactions: levofloxacin [From Leva[facility]] Allergy (Verified 04/06/17 12:49) nickel Allergy (Verified 04/06/17 15:02) Review of Systems Constitutional: ABSENT: chills, fever(s), headache(s), night sweats Eyes: ABSENT: visual disturbances Ears: ABSENT: hearing changes Nose, Mouth, and Throat: ABSENT: mouth pain, sore throat Cardiovascular: ABSENT: chest pain, edema, orthropnea, palpitations Respiratory: PRESENT: cough, dyspnea Gastrointestinal: ABSENT: abdominal pain, diarrhea, heartburn Musculoskeletal: ABSENT: joint swelling Neurological: ABSENT: focal weakness Psychiatric: PRESENT: anxiety, depression. ABSENT: homidical ideation Endocrine: ABSENT: cold intolerance, heat intolerance Physical Exam Vital Signs: Temp Pulse Resp BP Pulse Ox 98.7 F 127 H 16 135/99 H 96 08/18/17 13:09 08/18/17 13:09 08/18/17 14:00 08/18/17 14:00 08/18/17 14:00 General appearance: PRESENT: no acute distress, cooperative, obese Head exam: PRESENT: atraumatic, normocephalic Eye exam: PRESENT: EOMI, PERRLA Ear exam: PRESENT: normal external ear exam Mouth exam: PRESENT: moist Neck exam: PRESENT: full ROM. ABSENT: JVD, tenderness Respiratory exam: PRESENT: crackles, decreased breath sounds, wheezes Cardiovascular exam: PRESENT: tachycardia. ABSENT: diastolic murmur, systolic murmur Vascular exam: PRESENT: normal capillary refill GI/Abdominal exam: PRESENT: normal bowel sounds, soft. ABSENT: tenderness Extremities exam: ABSENT: joint swelling, pedal edema Neurological exam: PRESENT: alert, awake, oriented to person, oriented to place , oriented to time, CN II-XII grossly intact Psychiatric exam: PRESENT: appropriate affect, normal mood Skin exam: PRESENT: normal color Results Impressions: Chest X-Ray 08/18/17 14:33 IMPRESSION: NO ACUTE RADIOGRAPHIC FINDING IN THE CHEST. Assessment & Plan - Diagnosis (1) Asthma exacerbation Qualifiers: Asthma severity: severe Asthma persistence: persistent Qualified Code(s) : J45.51 - Severe persistent asthma with (acute) exacerbation Is this a current diagnosis for this admission?: Yes Plan: Patient will be placed on DuoNeb's, IV steroids and Singulair. Anticipate to restart Advair once improves. (2) Acute respiratory failure Is this a current diagnosis for this admission?: Yes Plan: We will continue oxygen supplementation and will attempt to wean off as tolerated (3) HTN (hypertension) Is this a current diagnosis for this admission?: Yes Plan: Blood pressure is elevated and will place patient on GENEVIEVE inhibitor. Will order BNP (4) Depression Qualifiers: Depression Type: unspecified Qualified Code(s): F32.9 - Major depressive disorder, single episode, unspecified Is this a current diagnosis for this admission?: Yes Plan: Patient deliver a baby in April and admits having a lot of stressors at home. She has to take care of a 3 month old baby and her 3 years old child. In addition she also takes care of her . She admits that her is immature. Will place patient on Effexor XR 37.5 mg daily and will follow up response. Plan of care discussed with patient and in agreement (5) Tobacco abuse Is this a current diagnosis for this admission?: Yes Plan: Patient has been strongly educated about quitting smoking especially since she does have a history of asthma. Will place on a nicotine patch. - Time Time Spent: 50 to 70 Minutes Smoking Cessation Education: 3 to 10 minutes Medications reviewed and adjusted accordingly: Yes Anticipated discharge: Home Within: within 72 hours - Inpatient Certification Based on my medical assessment, after consideration of the patient's comorbidities, presenting symptoms, or acuity I expect that the services needed warrant INPATIENT care.: Yes I certify that my determination is in accordance with my understanding of Medicare's requirements for reasonable and necessary INPATIENT services [42 CFR 412.3e].: Yes Medical Necessity: Need for Nebulizer Therapy and Monitoring of Response, Other - Oxygen
[2017-08-18] MEDS ORDERED: LISINOPRIL 10 MG TABLET PO ONE (18:15)
[2017-08-18] MEDS: OXYCODONE-ACETAMINOPHEN 5-325 MG TABLET PO PRN (18:45)
[2017-08-18] MEDS ORDERED: INFLUENZA ADLT QUAD (36MOS+) 2017-18 VAC 0.5 ML SYR IM PRN (18:50)
[2017-08-18] MEDS: IPRATROPIUM/ALBUTEROL 0.5-2.5 MG/3 ML AMPUL NEB SCH (20:11)
[2017-08-18] MEDS: METHYLPREDNISOLONE INJ 40 MG/1 ML SDV IV SCH (21:19)
[2017-08-19] MEDS: METHYLPREDNISOLONE INJ 40 MG/1 ML SDV IV SCH ×2 (05:28→21:59)
[2017-08-19 05:53] LABS: ABSOLUTE LYMPHOCYTES (AUTO) 1.5 10^3/uL (0.5-4.7); ABSOLUTE MONOCYTES (AUTO) 0.2 10^3/uL (0.1-1.4); ABSOLUTE NEUT (AUTO) 13.9 10^3/uL (1.7-8.2); BASOPHILS % (AUTO) 0.3 % (0-2); HEMATOCRIT 36.9 % (36.0-47.0); HEMOGLOBIN 12.3 g/dL (12.0-15.5); LYMPHOCYTES % (AUTO) 9.6 % (13-45); MEAN CORPUSCULAR HEMOGLOBIN 27.6 pg (27.0-33.4); MEAN CORPUSCULAR HGB CONC 33.2 g/dL (32.0-36.0); MEAN CORPUSCULAR VOLUME 83 fl (80-97); MONOCYTES % (AUTO) 1.5 % (3-13); PLATELET COUNT 456 10^3/uL (150-450); RED BLOOD COUNT 4.44 10^6/uL (3.72-5.28); RED CELL DISTRIBUTION WIDTH 16.5 % (11.5-14.0); SEGMENTED NEUTROPHILS % (AUTO) 88.6 % (42-78); TOTAL CELLS COUNTED % (AUTO) 100 %; WHITE BLOOD COUNT 15.7 10^3/uL (4.0-10.5)
[2017-08-19 06:14] LABS: ANION GAP 11 (5-19); BLOOD UREA NITROGEN 11 mg/dL (7-20); CALCIUM 9.5 mg/dL (8.4-10.2); CARBON DIOXIDE 20 mmol/L (22-30); CHLORIDE 109 mmol/L (98-107); GLUCOSE 197 mg/dL (75-110); MAGNESIUM 2.4 mg/dL (1.6-2.3); POTASSIUM 4.6 mmol/L (3.6-5.0); SODIUM 139.9 mmol/L (137-145)
[2017-08-19] MEDS: IPRATROPIUM/ALBUTEROL 0.5-2.5 MG/3 ML AMPUL NEB SCH ×3 (07:56→19:55)
[2017-08-19] MEDS ORDERED: LISINOPRIL 10 MG TABLET PO SCH (10:00)
--- NOTE | 2017-08-19 10:27 | PDOC PROGRESS REPORT ---
Subjective Progress Note for:: 08/19/17 Subjective:: Patient refers that her breathing is a lot better when compared to admission. She was not able to sleep well last night and did not want to bother the nurse asking for medication to sleep Reason For Visit: ACUTE RESPIRATORY FAILURE,ACUTE ASTHMA EXACERBATIO Physical Exam Vital Signs: Temp Pulse Resp BP Pulse Ox 98.1 F 92 18 102/53 L 95 08/19/17 04:32 08/19/17 04:32 08/19/17 04:32 08/19/17 04:32 08/19/17 04:32 Intake & Output 08/18/17 08/19/17 08/20/17 06:59 06:59 06:59 Intake Total 1000 Output Total 950 Balance 50 Weight 98 kg General appearance: PRESENT: no acute distress, cooperative, obese Head exam: PRESENT: atraumatic, normocephalic Eye exam: PRESENT: EOMI, PERRLA Ear exam: PRESENT: normal external ear exam Mouth exam: PRESENT: moist Neck exam: PRESENT: full ROM. ABSENT: JVD, tenderness Respiratory exam: PRESENT: symmetrical - Better movement of air when compared to admission with scattered wheezes, unlabored. ABSENT: tachypnea Cardiovascular exam: PRESENT: RRR. ABSENT: diastolic murmur, systolic murmur Vascular exam: PRESENT: normal capillary refill GI/Abdominal exam: PRESENT: normal bowel sounds, soft. ABSENT: tenderness Extremities exam: PRESENT: full ROM. ABSENT: joint swelling, pedal edema Neurological exam: PRESENT: alert, awake, oriented to person, oriented to place , oriented to time Psychiatric exam: PRESENT: appropriate affect, normal mood Results Laboratory Results: 08/19/17 05:35 08/19/17 05:35 08/19/17 08/19/17 08/19/17 05:35 05:35 05:35 WBC 15.7 H RBC 4.44 Hgb 12.3 Hct 36.9 MCV 83 MCH 27.6 MCHC 33.2 RDW 16.5 H Plt Count 456 H Seg Neutrophils % 88.6 H Lymphocytes % 9.6 L Monocytes % 1.5 L Eosinophils % 0.0 Basophils % 0.3 Absolute Neutrophils 13.9 H Absolute Lymphocytes 1.5 Absolute Monocytes 0.2 Absolute Eosinophils 0.0 Absolute Basophils 0.0 Sodium 139.9 Potassium 4.6 Chloride 109 H Carbon Dioxide 20 L Anion Gap 11 BUN 11 Creatinine 0.67 Est GFR ( Amer) > 60 Est GFR (Non-Af Amer) > 60 Glucose 197 H Calcium 9.5 Magnesium 2.4 H TSH 0.21 L Impressions: Chest X-Ray 08/18/17 14:33 IMPRESSION: NO ACUTE RADIOGRAPHIC FINDING IN THE CHEST. Assessment & Plan - Diagnosis (1) Asthma exacerbation Qualifiers: Asthma severity: severe Asthma persistence: persistent Qualified Code(s) : J45.51 - Severe persistent asthma with (acute) exacerbation Is this a current diagnosis for this admission?: Yes Plan: Continue DuoNeb's and Singulair and decrease IV steroids. To restart Advair to 500/50 mcg. (2) Acute respiratory failure Is this a current diagnosis for this admission?: Yes Plan: Will wean off oxygen. Talked to nurse to do spot pulse ox since turned to oxygen off. (3) HTN (hypertension) Is this a current diagnosis for this admission?: Yes Plan: Ruled out. Improved so likely situational (4) Depression Qualifiers: Depression Type: unspecified Qualified Code(s): F32.9 - Major depressive disorder, single episode, unspecified Is this a current diagnosis for this admission?: Yes Plan: Patient delivered a baby in April and admits having a lot of stressors at home. She has to take care of a 3 month old baby and her 3 years old child. In addition she also takes care of her . She admits that her is immature. Continue Effexor XR 37.5 mg, add trazodone at bedtime. To leave Ambien in the event trazodone may not work for her. (5) Tobacco abuse Is this a current diagnosis for this admission?: Yes Plan: Patient has been strongly educated about quitting smoking especially since she does have a history of asthma. Continue nicotine patch. (6) Leucocytosis Qualifiers: Leukocytosis type: unspecified Qualified Code(s): D72.829 - Elevated white blood cell count, unspecified Is this a current diagnosis for this admission?: Yes Plan: May relate to chronic steroid use however will add Zithromax since concern about atypical infection left untreated - Time Time Spent with patient: 15-24 minutes Medications reviewed and adjusted accordingly: Yes Anticipated discharge: Home - Inpatient Certification Based on my medical assessment, after consideration of the patient's comorbidities, presenting symptoms, or acuity I expect that the services needed warrant INPATIENT care.: Yes I certify that my determination is in accordance with my understanding of Medicare's requirements for reasonable and necessary INPATIENT services [42 CFR 412.3e].: Yes Medical Necessity: Need for Nebulizer Therapy and Monitoring of Response
[2017-08-19] MEDS: ENOXAPARIN SODIUM INJ 40 MG/0.4 ML DISP.SYRIN SUBCUT SCH (10:39)
[2017-08-19] MEDS: NICOTINE 21 MG/24 HR PATCH.TD24 TD SCH (10:40)
[2017-08-19] MEDS: AZITHROMYCIN 250 MG TABLET PO SCH (10:40)
[2017-08-19] MEDS: VENLAFAXINE HCL 37.5 MG CAP.SR.24H PO SCH (10:52)
[2017-08-19] MEDS: OXYCODONE-ACETAMINOPHEN 5-325 MG TABLET PO PRN (12:35)
[2017-08-19] MEDS: ZOLPIDEM TARTRATE 5 MG TABLET PO PRN (21:59)
[2017-08-19] MEDS: TRAZODONE HCL 50 MG TABLET PO SCH (22:00)
[2017-08-19] MEDS: FLUTICASONE/SALMETEROL DISKUS 500-50 MCG/DOSE IH SCH (22:01)
[2017-08-20] MEDS: IPRATROPIUM/ALBUTEROL 0.5-2.5 MG/3 ML AMPUL NEB SCH ×3 (08:45→20:00)
[2017-08-20] MEDS: NICOTINE 21 MG/24 HR PATCH.TD24 TD SCH (10:53)
[2017-08-20] MEDS: AZITHROMYCIN 250 MG TABLET PO SCH (10:54)
[2017-08-20] MEDS: FLUTICASONE/SALMETEROL DISKUS 500-50 MCG/DOSE IH SCH ×2 (10:54→21:53)
[2017-08-20] MEDS: METHYLPREDNISOLONE INJ 40 MG/1 ML SDV IV SCH ×2 (10:54→21:52)
--- NOTE | 2017-08-20 11:00 | PDOC PROGRESS REPORT ---
Subjective Progress Note for:: 08/20/17 Subjective:: Still complains of shortness of breath but reports is improved. Reason For Visit: ACUTE RESPIRATORY FAILURE,ACUTE ASTHMA EXACERBATIO Physical Exam Vital Signs: Temp Pulse Resp BP Pulse Ox 98.4 F 90 16 108/57 L 96 08/20/17 07:54 08/20/17 08:45 08/20/17 08:45 08/20/17 07:54 08/20/17 08:45 Intake & Output 08/19/17 08/20/17 08/21/17 06:59 06:59 06:59 Intake Total 1000 913 Output Total 950 550 Balance 50 363 Weight 98 kg General appearance: PRESENT: no acute distress Eye exam: PRESENT: conjunctiva pink. ABSENT: scleral icterus Mouth exam: PRESENT: moist, tongue midline Neck exam: ABSENT: JVD Respiratory exam: PRESENT: wheezes - Bilateral expiratory wheezes. ABSENT: rales, rhonchi Cardiovascular exam: PRESENT: RRR. ABSENT: diastolic murmur, rubs, systolic murmur GI/Abdominal exam: PRESENT: normal bowel sounds, soft. ABSENT: distended, guarding, mass, organolmegaly, rebound, tenderness Extremities exam: ABSENT: calf tenderness, clubbing, pedal edema Neurological exam: PRESENT: alert, awake, oriented to person, oriented to place , oriented to time, oriented to situation, CN II-XII grossly intact. ABSENT: motor sensory deficit Psychiatric exam: PRESENT: appropriate affect Skin exam: PRESENT: dry, intact, warm. ABSENT: cyanosis, rash Results Laboratory Results: 08/19/17 05:35 08/19/17 05:35 Impressions: Chest X-Ray 08/18/17 14:33 IMPRESSION: NO ACUTE RADIOGRAPHIC FINDING IN THE CHEST. Assessment & Plan - Diagnosis (1) Acute respiratory failure Is this a current diagnosis for this admission?: Yes Plan: Secondary to acute asthma exacerbation. She is improving. We will continue with oxygen and IV steroids. (2) Asthma exacerbation Qualifiers: Asthma severity: severe Asthma persistence: persistent Qualified Code(s) : J45.51 - Severe persistent asthma with (acute) exacerbation Is this a current diagnosis for this admission?: Yes Plan: Continue with oxygen and nebulizers. Patient also is on IV steroids. (3) Depression Qualifiers: Depression Type: unspecified Qualified Code(s): F32.9 - Major depressive disorder, single episode, unspecified Is this a current diagnosis for this admission?: Yes Plan: Continue with trazodone and Effexor (4) HTN (hypertension) Is this a current diagnosis for this admission?: Yes Plan: Stable without medications. (5) Leucocytosis Qualifiers: Leukocytosis type: unspecified Qualified Code(s): D72.829 - Elevated white blood cell count, unspecified Is this a current diagnosis for this admission?: Yes Plan: Started on Zithromax. No obvious pneumonia (6) Tobacco abuse Is this a current diagnosis for this admission?: Yes Plan: Encouraged to quit (7) Anemia Qualifiers: Anemia type: other cause Other causes of anemia: other cause, not classified Qualified Code(s): D64.89 - Other specified anemias Is this a current diagnosis for this admission?: Yes Plan: Patient's hemoglobin is normal at this time. - Time Time Spent with patient: 25-34 minutes - Inpatient Certification Medical Necessity: Need Close Monitoring Due to Risk of Patient Decompensation
[2017-08-20] MEDS: VENLAFAXINE HCL 37.5 MG CAP.SR.24H PO SCH (11:09)
[2017-08-20] MEDS: ENOXAPARIN SODIUM INJ 40 MG/0.4 ML DISP.SYRIN SUBCUT SCH (11:09)
[2017-08-20] MEDS: OXYCODONE-ACETAMINOPHEN 5-325 MG TABLET PO PRN (20:09)
[2017-08-20] MEDS: TRAZODONE HCL 50 MG TABLET PO SCH (21:53)
[2017-08-21] MEDS: ZOLPIDEM TARTRATE 5 MG TABLET PO PRN (00:12)
[2017-08-21] MEDS: IPRATROPIUM/ALBUTEROL 0.5-2.5 MG/3 ML AMPUL NEB SCH (07:45)
[2017-08-21 08:04] LABS: HEMATOCRIT 36.1 % (36.0-47.0); MEAN CORPUSCULAR HEMOGLOBIN 27.4 pg (27.0-33.4); MEAN CORPUSCULAR HGB CONC 33.2 g/dL (32.0-36.0); MEAN CORPUSCULAR VOLUME 83 fl (80-97); PLATELET COUNT 474 10^3/uL (150-450); RED BLOOD COUNT 4.38 10^6/uL (3.72-5.28); RED CELL DISTRIBUTION WIDTH 16.8 % (11.5-14.0); WHITE BLOOD COUNT 19.9 10^3/uL (4.0-10.5)
[2017-08-21 08:24] LABS: ANION GAP 11 (5-19); BLOOD UREA NITROGEN 15 mg/dL (7-20); CALCIUM 10.1 mg/dL (8.4-10.2); CARBON DIOXIDE 24 mmol/L (22-30); CHLORIDE 105 mmol/L (98-107); GLUCOSE 110 mg/dL (75-110); POTASSIUM 5.2 mmol/L (3.6-5.0); SODIUM 139.5 mmol/L (137-145)
[2017-08-21 08:39] LABS: ABSOLUTE LYMPHOCYTES# (MANUAL) 4.6 10^3/uL (0.5-4.7); ABSOLUTE MONOCYTES # (MANUAL) 0.4 10^3/uL (0.1-1.4); ABSOLUTE NEUTROPHILS# (MANUAL) 14.9 10^3/uL (1.7-8.2); BASOPHILS % (MANUAL) 0 % (0-2); EOSINOPHILS % (MANUAL) 0 % (0-6); LYMPHOCYTES % (MANUAL) 22 % (13-45); METAMYELOCYTES % (MANUAL) 2 % (0); MONOCYTES % (MANUAL) 2 % (3-13); SEGMENTED NEUTROPHILS % (MAN) 73 % (42-78); TOTAL CELLS COUNTED 100
[2017-08-21 08:40] LABS: HYPOCHROMASIA SLIGHT; PLATELET COMMENT ADEQUATE; POLYCHROMASIA SLIGHT; TOXIC GRANULATION 1+; TOXIC VACUOLATION PRESENT
[2017-08-21] MEDS: NICOTINE 21 MG/24 HR PATCH.TD24 TD SCH (09:17)
[2017-08-21] MEDS: ENOXAPARIN SODIUM INJ 40 MG/0.4 ML DISP.SYRIN SUBCUT SCH (09:17)
[2017-08-21] MEDS: AZITHROMYCIN 250 MG TABLET PO SCH (09:42)
[2017-08-21] MEDS: METHYLPREDNISOLONE INJ 40 MG/1 ML SDV IV SCH (09:42)
[2017-08-21] MEDS: FLUTICASONE/SALMETEROL DISKUS 500-50 MCG/DOSE IH SCH (09:43)
[2017-08-21] MEDS: VENLAFAXINE HCL 37.5 MG CAP.SR.24H PO SCH (09:48)
[2017-08-21 09:55] VITALS: BP 127/75
--- NOTE | 2017-08-21 12:34 | PDOC DISCHARGE SUMMARY ---
General - Admit/Disc Date/PCP Admission Date/Primary Care Provider: 08/18/17 16:42 Discharge Date: 08/21/17 - Discharge Diagnosis (1) Acute respiratory failure Is this a current diagnosis for this admission?: Yes Summary: Secondary to asthma exacerbation (2) Asthma exacerbation Is this a current diagnosis for this admission?: Yes (3) Depression Is this a current diagnosis for this admission?: Yes (4) HTN (hypertension) Is this a current diagnosis for this admission?: Yes (5) Leucocytosis Is this a current diagnosis for this admission?: Yes (6) Tobacco abuse Is this a current diagnosis for this admission?: Yes (7) Anemia Is this a current diagnosis for this admission?: Yes - Additional Information Resuscitation Status: Full Code Discharge Diet: Regular Discharge Activity: Activity As Tolerated Prescriptions: Azithromycin [Zithromax 250 mg Tablet] 500 mg PO DAILY #3 tablet Fluticasone/Salmeterol [Advair 500-50 Diskus 14 Dose/Diskus] 1 inh IH Q12 #1 inhaler Prednisone 10 mg PO DAILY #39 tablet Home Medications: Albuterol Sulfate [Proair HFA] 2 puff IH Q4HP PRN 08/20/17 Ipratropium/Albuterol Sulfate [Duoneb 3 ml Ampul] 3 ml NEB RTQ4HP PRN 08/20/17 Azithromycin [Zithromax 250 mg Tablet] 500 mg PO DAILY #3 tablet 08/21/17 Flu Vacc [id number] [id number] Up/Pf [Fluzone Adlt Quad [id number] Vac 0.5 ml Syr] 0.5 ml IM .DISCHARGE PRN disp.syrin 08/21/17 Fluticasone/Salmeterol [Advair 500-50 Diskus 14 Dose/Diskus] 1 inh IH Q12 #1 inhaler 08/21/17 Nicotine [Nicoderm 21 mg/24 Hr Transderm Patch] 1 each TD DAILY patch.td24 11/03 Prednisone 10 mg PO DAILY #39 tablet 08/21/17 Trazodone HCl [Desyrel 50 mg Tablet] 25 mg PO QHS tablet 08/21/17 Venlafaxine HCl ER [Effexor Xr 37.5 mg Cap.sr] 37.5 mg PO DAILY cap.sr.24h 11/03 History of Present Illness History of Present Illness: KEEGAN ADAM is a 31 year old female with a history of asthma who presented to emergency room with complaints of progressive shortness of breath for several days prior. The patient had recently been seen by her manufacturing technician and given prednisone. The patient has been smoking about a half a pack per day. The patient has been using her Advair. When she was seen at urgent care she was found to have a pulse ox of 88% and was placed on oxygen and given IV steroids and is admitted for treatment of acute asthma exacerbation. Hospital Course Hospital Course: 31-year-old female who has asthma who has continued to smoke prior to this hospitalization presented with an acute asthma exacerbation that failed outpatient treatment. Patient was given IV steroids and nebulizers. She had improvement in her respiratory status on the day of discharge was back to her baseline. She was initially hypoxic when she presented but on the day of discharge was no longer hypoxic. The patient will be sent home on a prednisone taper. The rest of her medical problems were stable during this hospitalization. Physical Exam Vital Signs: Temp Pulse Resp BP Pulse Ox 97.8 F 85 16 127/75 H 98 08/21/17 09:54 08/21/17 09:54 08/21/17 09:54 08/21/17 09:54 08/21/17 09:54 Intake & Output 08/20/17 08/21/17 08/22/17 06:59 06:59 06:59 Intake Total 913 700 Output Total 550 Balance 363 700 Weight 100.2 kg General appearance: PRESENT: no acute distress Eye exam: PRESENT: conjunctiva pink. ABSENT: scleral icterus Mouth exam: PRESENT: moist, tongue midline Neck exam: ABSENT: JVD Respiratory exam: PRESENT: clear to auscultation juan a. ABSENT: rales, rhonchi, wheezes Cardiovascular exam: PRESENT: RRR. ABSENT: diastolic murmur, rubs, systolic murmur GI/Abdominal exam: PRESENT: normal bowel sounds, soft. ABSENT: distended, guarding, mass, organolmegaly, rebound, tenderness Extremities exam: ABSENT: calf tenderness, clubbing, pedal edema Neurological exam: PRESENT: alert, awake, oriented to person, oriented to place , oriented to time, oriented to situation, CN II-XII grossly intact. ABSENT: motor sensory deficit Psychiatric exam: PRESENT: appropriate affect Skin exam: PRESENT: dry, intact, warm. ABSENT: cyanosis, rash Results Laboratory Results: 08/21/17 07:41 08/21/17 07:41 08/21/17 08/21/17 07:41 07:41 WBC 19.9 H RBC 4.38 Hgb 12.0 Hct 36.1 MCV 83 MCH 27.4 MCHC 33.2 RDW 16.8 H Plt Count 474 H Seg Neutrophils % Not Reportable Lymphocytes % Not Reportable Monocytes % Not Reportable Eosinophils % Not Reportable Basophils % Not Reportable Absolute Neutrophils Not Reportable Absolute Lymphocytes Not Reportable Absolute Monocytes Not Reportable Absolute Eosinophils Not Reportable Absolute Basophils Not Reportable Sodium 139.5 Potassium 5.2 H Chloride 105 Carbon Dioxide 24 Anion Gap 11 BUN 15 Creatinine 0.68 Est GFR ( Amer) > 60 Est GFR (Non-Af Amer) > 60 Glucose 110 Calcium 10.1 Impressions: Chest X-Ray 08/18/17 14:33 IMPRESSION: NO ACUTE RADIOGRAPHIC FINDING IN THE CHEST. Qualifiers PATEINT BEING DISCHARGED WITH ANY OF THE FOLLOWING DIAGNOSIS?: No Plan Discharge Plan: Discharged to home. Follow with primary care in 2 weeks. Time Spent: Less than 30 Minutes
== END 2017-08-21 11:00 | disposition home or self-care (01) | DRG 202 ==
LOC: ER 13:02 → EH 16:42 → 2N 18:06
PROVIDERS: ADMIT Pediatrics; ATTEND Pediatrics
PROC: 3E0F73Z Introduction of Anti-inflammatory into Respiratory Tract, Via Natural or Artificial Opening (ICD-10-PCS; principal; 2017-08-18)
DX: J45.51 Severe persistent asthma with (acute) exacerbation (principal); J96.01 Acute respiratory failure with hypoxia; I10 Essential (primary) hypertension; D72.829 Elevated white blood cell count, unspecified; F17.210 Nicotine dependence, cigarettes, uncomplicated; D64.9 Anemia, unspecified; F32.9 Major depressive disorder, single episode, unspecified; Z82.61 Family history of arthritis; Z82.49 Family history of ischemic heart disease and other diseases of the circulatory system; Z90.49 Acquired absence of other specified parts of digestive tract; Z88.1 Allergy status to other antibiotic agents; Z88.8 Allergy status to other drugs, medicaments and biological substances; Z79.52 Long term (current) use of systemic steroids
CPT/HCPCS: 36415; 71010; 80048; 80053; 82803; 83735; 83880; 84443; 84703; 85025; 94640; 96365; 96375; 99285; J1650; J2920; J2930; J3475; J3490; J7030; J7620

== ENCOUNTER 2017-09-06 11:31 | Inpatient (IN) | payer OTHER ==
[2017-09-06] MEDS ORDERED: ALBUTEROL SULFATE 0.083% NEB 2.5 MG/3 ML AMPUL NEB ONE ×2 (11:43→15:29)
[2017-09-06] MEDS ORDERED: METHYLPREDNISOLONE INJ 125 MG/2 ML SDV IV ONE (11:45)
[2017-09-06] MEDS ORDERED: IPRATROPIUM/ALBUTEROL 0.5-2.5 MG/3 ML AMPUL NEB ONE (11:45)
--- NOTE | 2017-09-06 11:47 | ER Document Report ---
ED Medical Screen (RME) - General Chief Complaint: Respiratory Distress Stated Complaint: RESPIRATORY DISTRESS Time Seen by Provider: 09/06/17 11:44 Mode of Arrival: Ambulatory Information source: Patient Notes: 32-year-old female history of asthma presents and asthma exacerbation. Patient notes she has been on steroids for months, she was recently discharged from the hospital for another asthma exacerbation. I have greeted and performed a rapid initial assessment of this patient. A comprehensive ED assessment and evaluation of the patient, analysis of test results and completion of the medical decision making process will be conducted by additional ED providers. PHYSICAL EXAMINATION: GENERAL: Well-appearing, well-nourished and in moderate respiratory distress. HEAD: Atraumatic, normocephalic. EYES: Pupils equal round extraocular movements intact, conjunctiva are normal. ENT: Nares patent NECK: Normal range of motion LUNGS: Wheezing resp. distress Musculoskeletal: Normal range of motion NEUROLOGICAL: Normal speech, normal gait. PSYCH: Normal mood, normal affect. SKIN: Warm, Dry, normal turgor, no rashes or lesions noted. TRAVEL OUTSIDE OF THE [place] IN LAST 30 DAYS: No - Related Data Allergies/Adverse Reactions: levofloxacin [From Levaquin] Allergy (Verified 04/06/17 12:49) nickel Allergy (Verified 04/06/17 15:02) Past Medical History Pulmonary Medical History: Reports: Hx Asthma, Hx Pneumonia Endocrine Medical History: Denies: Hx Diabetes Mellitus Type 2 Renal/ Medical History: Reports: Hx Ovarian Cysts, Hx Pelvic Inflammatory Disease. Denies: Hx Peritoneal Dialysis Past Surgical History: Reports: Hx Section, Hx Cholecystectomy, Hx Tonsillectomy - Immunizations Immunizations up to date: Yes Hx Diphtheria, Pertussis, Tetanus Vaccination: Yes History of Influenza Vaccine for 05/2017 - 10/2017 Season: Refused
[2017-09-06] MEDS: MAGNESIUM SULFATE/D5W 1 GM/100 ML RTUPB IV SCH ×2 (12:03→12:47)
[2017-09-06 12:12] LABS: ABSOLUTE EOSINOPHILS # (AUTO) 0.1 10^3/uL (0.0-0.6); ABSOLUTE LYMPHOCYTES (AUTO) 2.4 10^3/uL (0.5-4.7); EOSINOPHILS % (AUTO) 0.8 % (0-6); LYMPHOCYTES % (AUTO) 16.7 % (13-45); TOTAL CELLS COUNTED % (AUTO) 100 %
[2017-09-06 12:18] LABS: ABSOLUTE BASOPHILS # (AUTO) 0.2 10^3/uL (0.0-0.2); ABSOLUTE MONOCYTES (AUTO) 0.9 10^3/uL (0.1-1.4); ABSOLUTE NEUT (AUTO) 10.6 10^3/uL (1.7-8.2); BASOPHILS % (AUTO) 1.1 % (0-2); HEMOGLOBIN 13.5 g/dL (12.0-15.5); MEAN CORPUSCULAR HEMOGLOBIN 28.5 pg (27.0-33.4); MEAN CORPUSCULAR HGB CONC 32.9 g/dL (32.0-36.0); MONOCYTES % (AUTO) 6.3 % (3-13); PLATELET COUNT 415 10^3/uL (150-450); RED BLOOD COUNT 4.72 10^6/uL (3.72-5.28); RED CELL DISTRIBUTION WIDTH 16.4 % (11.5-14.0); SEGMENTED NEUTROPHILS % (AUTO) 75.1 % (42-78); WHITE BLOOD COUNT 14.1 10^3/uL (4.0-10.5)
[2017-09-06 12:29] LABS: MEAN CORPUSCULAR VOLUME 87 fl (80-97)
--- NOTE | 2017-09-06 12:33 | ER Document Report ---
ED General - General Chief Complaint: Respiratory Distress Stated Complaint: RESPIRATORY DISTRESS Time Seen by Provider: 09/06/17 11:44 Mode of Arrival: Ambulatory Information source: Patient, [facility] Records TRAVEL OUTSIDE OF THE [place] IN LAST 30 DAYS: No - HPI Patient complains to provider of: asthma Onset: This morning Onset/Duration: Sudden, Gradual, Worse Quality of pain: No pain Severity: Moderate Associated symptoms: Nonproductive cough, Shortness of breath Exacerbated by: Denies Relieved by: Denies Similar symptoms previously: Yes - Patient discharged from here approximately 2 weeks ago Notes: States that she is here approximately 2 weeks ago as an inpatient for asthma. She states she was discharged home on an antibiotic which she took for 3 days. She states she also had a prednisone tapering dose when she gets to about 10 mg she starts to have an asthma flare. She states on Saturday she finished her prednisone she has been without it for 2 days. She was supposed to see her policy and planning manager today however she came here instead because she was very short of breath. She states that she has been taking her inhalers as well as her nebulizer at home without improvement. She states she has not had fever at all patient does have a history of March. She states she smokes approximately half pack a day however the last couple days she has just been unable to smoke. - Related Data Allergies/Adverse Reactions: levofloxacin [From Levaquin] Allergy (Verified 09/06/17 11:49) nickel Allergy (Verified 09/06/17 11:49) Past Medical History - General Information source: Patient - Social History Smoking Status: Current Every Day Smoker Chew tobacco use (# tins/day): No Frequency of alcohol use: None Drug Abuse: None Lives with: Family Family History: Reviewed & Not Pertinent, Arthritis, Hypertension Patient has suicidal ideation: No Patient has homicidal ideation: No - Past Medical History Cardiac Medical History: Reports: None Pulmonary Medical History: Reports: Hx Asthma, Hx Pneumonia EENT Medical History: Reports: None Neurological Medical History: Reports: None Endocrine Medical History: Reports: None. Denies: Hx Diabetes Mellitus Type 2 Renal/ Medical History: Reports: Hx Ovarian Cysts, Hx Pelvic Inflammatory Disease. Denies: Hx Peritoneal Dialysis Malignancy Medical History: Reports: None GI Medical History: Reports: None Musculoskeltal Medical History: Reports None Skin Medical History: Reports None Psychiatric Medical History: Reports: None Traumatic Medical History: Reports: None Past Surgical History: Reports: Hx Section, Hx Cholecystectomy, Hx Tonsillectomy - Immunizations Immunizations up to date: Yes Hx Diphtheria, Pertussis, Tetanus Vaccination: Yes Review of Systems - Review of Systems Constitutional: denies: Chills, Diaphoresis, Fever, Malaise, Weakness EENT: No symptoms reported Cardiovascular: No symptoms reported Respiratory: No symptoms reported Gastrointestinal: No symptoms reported Genitourinary: No symptoms reported Female Genitourinary: No symptoms reported Musculoskeletal: No symptoms reported Skin: No symptoms reported Hematologic/Lymphatic: No symptoms reported Neurological/Psychological: No symptoms reported Physical Exam - Vital signs Vitals: Resp Pulse Ox 26 H 96 09/06/17 12:00 09/06/17 12:00 - Notes Notes: PHYSICAL EXAMINATION: GENERAL: Well-appearing, well-nourished and in no acute distress. Patient is sitting Japanese style on the bed watching TV. HEAD: Atraumatic, normocephalic. EYES: Pupils equal round and reactive to light, extraocular movements intact, conjunctiva are normal. ENT: Nares patent, oropharynx clear without exudates. Moist mucous membranes. NECK: Normal range of motion, supple without lymphadenopathy LUNGS: Bilateral inspiratory and expiratory wheezing. No rales or rhonchi. No increased work of breathing HEART: Tacky without murmurs ABDOMEN: Soft, nontender, nondistended abdomen. No guarding, no rebound. No masses appreciated. Female : deferred Musculoskeletal: Normal range of motion, no pitting or edema. No cyanosis. NEUROLOGICAL: Cranial nerves grossly intact. Normal speech. Normal sensory, motor exams PSYCH: Normal mood, normal affect. SKIN: Warm, Dry, normal turgor, no rashes or lesions noted. Course - Re-evaluation Re-evalutation: 09/06/17 15:33 I did go back and reexamine the patient. She is watching TV. However she is pulse ox 95% on room air she seems to be in mild respiratory distress and she is wheezing inspiratory and expiratory only. Chest x-ray also shows right middle lobe infiltrate. I will place her on antibiotics and admit to Dr. Caicedo. 09/06/17 15:39 Of her admission and she is agreeable. Rocephin and azithromycin are ordered as well as a blood culture. - Vital Signs Vital signs: Temp Pulse Resp BP Pulse Ox 17 126/86 H 93 09/06/17 14:00 09/06/17 12:21 09/06/17 14:00 - Laboratory Result Diagrams: 09/06/17 12:03 09/06/17 12:03 Laboratory results interpreted by me: 09/06/17 09/06/17 12:03 12:03 WBC 14.1 H RDW 16.4 H Absolute Neutrophils 10.6 H Total Bilirubin 1.9 H Discharge - Discharge Clinical Impression: Asthma exacerbation, Tobacco abuse, Pneumonia Condition: Stable Disposition: ADMITTED INPATIENT Admitting Provider: Hospitalist - Dr. Caicedo Unit Admitted: Telemetry
[2017-09-06 12:40] LABS: ALANINE AMINOTRANSFERASE 26 U/L (9-52); ALBUMIN 4.3 g/dL (3.5-5.0); ALKALINE PHOSPHATASE 47 U/L (38-126); ANION GAP 8 (5-19); ASPARTATE AMINO TRANSFERASE 27 U/L (14-36); BILIRUBIN,DIRECT 0.3 mg/dL (0.0-0.4); BILIRUBIN,TOTAL 1.9 mg/dL (0.2-1.3); BLOOD UREA NITROGEN 8 mg/dL (7-20); CALCIUM 10.1 mg/dL (8.4-10.2); CARBON DIOXIDE 27 mmol/L (22-30); CHLORIDE 106 mmol/L (98-107); GLUCOSE 82 mg/dL (75-110); POTASSIUM 3.8 mmol/L (3.6-5.0); SODIUM 140.9 mmol/L (137-145); TOTAL PROTEIN 7.6 g/dL (6.3-8.2)
--- NOTE | 2017-09-06 13:01 | RADIOLOGY REPORT (SQ) ---
EXAM DESCRIPTION: CHEST PA/LAT COMPLETED DATE/TIME: 09/06/2017 12:39 pm REASON FOR STUDY: asthma exacerbation COMPARISON: Chest films 04/08/2017, 05/11/2017 EXAM PARAMETERS: NUMBER OF VIEWS: two views TECHNIQUE: Digital Frontal and Lateral radiographic views of the chest acquired. RADIATION DOSE: NA LIMITATIONS: none FINDINGS: LUNGS AND PLEURA: Patchy airspace disease in the right middle lobe on frontal and lateral films, atelectasis versus pneumonia. No other focal infiltrates. No pleural effusion. No pneumothorax. MEDIASTINUM AND HILAR STRUCTURES: No masses or contour abnormalities. HEART AND VASCULAR STRUCTURES: Heart normal size. No evidence for failure. BONES: No acute findings. HARDWARE: None in the chest. OTHER: No other significant finding. IMPRESSION: Airspace disease in the right middle lobe, atelectasis versus pneumonia TECHNICAL DOCUMENTATION: JOB ID: [id number] [employer]- All Rights Reserved
[2017-09-06] MEDS ORDERED: HYDROCODONE/ACETAMINOPHEN 5-325 MG TABLET PO ONE (14:37)
[2017-09-06] MEDS ORDERED: CEFTRIAXONE 1 GM/D5W RTU 1 GM/50 ML RTUPB IV ONE (15:28)
[2017-09-06] MEDS ORDERED: AZITHROMYCIN INJ 500 MG VIAL IV ONE (15:29)
[2017-09-06] MEDS ORDERED: CEFTRIAXONE SODIUM 1,000 MG in DEXTROSE 5%-WATER 50 ML IV ONE (16:30)
[2017-09-06] MEDS ORDERED: IPRATROPIUM/ALBUTEROL 0.5-2.5 MG/3 ML AMPUL NEB PRN (16:42)
--- NOTE | 2017-09-06 16:51 | PDOC H&P ---
History of Present Illness Admission Date/PCP: 09/06/17 15:44 Patient complains of: Increasing shortness of breath History of Present Illness: KEEGAN ADAM is a 32 year old female With a known history of bronchial asthma who has been a heavy smoker since age 13, who presented to the ED with increasing shortness of breath Patient states that for the past 5 months she noticed that she had increasing shortness of breath with progressive worsening of her respiratory status; she became more dyspneic the last couple days; Upon evaluation in the ED patient was diagnosed of asthma acute exacerbation and pneumonia and subsequently admitted on the hospitalist service for further evaluation and care Past Medical History Cardiac Medical History: Reports: None Pulmonary Medical History: Reports: Asthma, Pneumonia EENT Medical History: Reports: None Neurological Medical History: Reports: None Endocrine Medical History: Reports: None Denies: Diabetes Mellitus Type 2 Malignancy Medical History: Reports: None GI Medical History: Reports: None Musculoskeltal Medical History: Reports: None Skin Medical History: Reports: None Psychiatric Medical History: Reports: None Traumatic Medical History: Reports: None Hematology: Denies: Anemia Past Surgical History Past Surgical History: Reports: Section, Cholecystectomy, Tonsillectomy Social History Lives with: Family Smoking Status: Current Every Day Smoker Frequency of Alcohol Use: Occasional Hx Recreational Drug Use: No Drugs: None Hx Prescription Drug Abuse: No - Advance Directive Resuscitation Status: Full Code Surrogate healthcare decision maker:: Her Kei Family History Family History: Arthritis, DM - Grandparents had diabetes, Hypertension, Malignancy - Father has cancer of the throat Parental Family History Reviewed: Yes Children Family History Reviewed: NA Sibling(s) Family History Reviewed.: NA Medication/Allergy Allergies/Adverse Reactions: levofloxacin [From Levaquin] Allergy (Verified 09/06/17 11:49) nickel Allergy (Verified 09/06/17 11:49) Review of Systems Constitutional: ABSENT: chills, fever(s), headache(s), weight gain, weight loss Eyes: ABSENT: visual disturbances Ears: ABSENT: hearing changes Cardiovascular: ABSENT: chest pain, dyspnea on exertion, edema, orthropnea, palpitations Respiratory: PRESENT: as per HPI, cough, dyspnea. ABSENT: hemoptysis, sputum Gastrointestinal: ABSENT: abdominal pain, constipation, diarrhea, hematemesis, hematochezia, nausea, vomiting Genitourinary: ABSENT: dysuria, hematuria Musculoskeletal: ABSENT: joint swelling Integumentary: ABSENT: rash, wounds Neurological: ABSENT: abnormal gait, abnormal speech, confusion, dizziness, focal weakness, syncope Psychiatric: ABSENT: anxiety, depression, homidical ideation, suicidal ideation Endocrine: ABSENT: cold intolerance, heat intolerance, polydipsia, polyuria Hematologic/Lymphatic: ABSENT: easy bleeding, easy bruising Physical Exam Vital Signs: Temp Pulse Resp BP Pulse Ox 27 H 126/86 H 95 09/06/17 16:00 09/06/17 12:21 09/06/17 16:00 General appearance: PRESENT: no acute distress, well-developed, well-nourished Head exam: PRESENT: atraumatic, normocephalic Eye exam: PRESENT: conjunctiva pink, EOMI, PERRLA. ABSENT: scleral icterus Ear exam: PRESENT: normal external ear exam Mouth exam: PRESENT: moist, tongue midline Neck exam: ABSENT: carotid bruit, JVD, lymphadenopathy, thyromegaly Respiratory exam: PRESENT: decreased breath sounds, wheezes - Bilaterally. ABSENT: rales, rhonchi Cardiovascular exam: PRESENT: RRR. ABSENT: diastolic murmur, rubs, systolic murmur Pulses: PRESENT: normal dorsalis pedis pul Vascular exam: PRESENT: normal capillary refill GI/Abdominal exam: PRESENT: normal bowel sounds, soft. ABSENT: distended, guarding, mass, organolmegaly, rebound, tenderness Rectal exam: PRESENT: deferred Extremities exam: PRESENT: full ROM. ABSENT: calf tenderness, clubbing, pedal edema Neurological exam: PRESENT: alert, awake, oriented to person, oriented to place , oriented to time, oriented to situation, CN II-XII grossly intact. ABSENT: motor sensory deficit Psychiatric exam: PRESENT: appropriate affect, normal mood. ABSENT: homicidal ideation, suicidal ideation Skin exam: PRESENT: dry, intact, warm. ABSENT: cyanosis, rash Results Impressions: Chest X-Ray 09/06/17 11:45 IMPRESSION: Airspace disease in the right middle lobe, atelectasis versus pneumonia Assessment & Plan - Diagnosis (1) Asthma exacerbation Qualifiers: Asthma severity: severe Asthma persistence: unspecified Qualified Code(s) : J45.901 - Unspecified asthma with (acute) exacerbation Is this a current diagnosis for this admission?: Yes (2) Pneumonia Qualifiers: Pneumonia type: due to unspecified organism Laterality: unspecified laterality Lung location: unspecified part of lung Qualified Code(s): J18.9 - Pneumonia, unspecified organism Is this a current diagnosis for this admission?: Yes (3) Tobacco abuse Is this a current diagnosis for this admission?: Yes - Time Time Spent with patient: We will treat the patient's duo nebs steroids ceftriaxone and Zithromax Nicotine patch will be applied spoke at length about tobacco cessation And need for her to quit smoking Patient will be admitted to medical unit with telemetry as an inpatient Time Spent: 50 to 70 Minutes - Inpatient Certification Based on my medical assessment, after consideration of the patient's comorbidities, presenting symptoms, or acuity I expect that the services needed warrant INPATIENT care.: Yes I certify that my determination is in accordance with my understanding of Medicare's requirements for reasonable and necessary INPATIENT services [42 CFR 412.3e].: Yes Medical Necessity: Need For Continuous Telemetry Monitoring, Need for Nebulizer Therapy and Monitoring of Response, Need for IV Antibiotics, Risk of Complication if Not Cared For in Hospital
[2017-09-06] MEDS: GUAIFENESIN 600 MG TABLET.SA PO SCH (21:54)
[2017-09-06] MEDS: ZOLPIDEM TARTRATE 5 MG TABLET PO PRN (21:54)
[2017-09-06] MEDS: METHYLPREDNISOLONE INJ 40 MG/1 ML SDV IV SCH (21:54)
[2017-09-06] MEDS: IPRATROPIUM/ALBUTEROL 0.5-2.5 MG/3 ML AMPUL NEB PRN (22:04)
[2017-09-07 06:38] LABS: ALANINE AMINOTRANSFERASE 25 U/L (9-52); ALBUMIN 4.1 g/dL (3.5-5.0); ALKALINE PHOSPHATASE 43 U/L (38-126); ANION GAP 11 (5-19); ASPARTATE AMINO TRANSFERASE 11 U/L (14-36); BILIRUBIN,DIRECT 0.2 mg/dL (0.0-0.4); BILIRUBIN,TOTAL 0.8 mg/dL (0.2-1.3); BLOOD UREA NITROGEN 11 mg/dL (7-20); CALCIUM 9.9 mg/dL (8.4-10.2); CARBON DIOXIDE 20 mmol/L (22-30); CHLORIDE 109 mmol/L (98-107); GLUCOSE 162 mg/dL (75-110); SODIUM 140.3 mmol/L (137-145); TOTAL PROTEIN 6.8 g/dL (6.3-8.2)
[2017-09-07 06:41] LABS: POTASSIUM 5.2 mmol/L (3.6-5.0)
[2017-09-07] MEDS: METHYLPREDNISOLONE INJ 40 MG/1 ML SDV IV SCH ×3 (06:54→22:40)
[2017-09-07] MEDS: GUAIFENESIN 600 MG TABLET.SA PO SCH ×2 (09:03→22:40)
[2017-09-07] MEDS: ENOXAPARIN SODIUM INJ 40 MG/0.4 ML DISP.SYRIN SUBCUT SCH (09:03)
[2017-09-07] MEDS ORDERED: ACETAMINOPHEN 325 MG TABLET PO PRN (09:36)
[2017-09-07] MEDS: IPRATROPIUM/ALBUTEROL 0.5-2.5 MG/3 ML AMPUL NEB PRN ×2 (11:26→20:04)
[2017-09-07] MEDS: AZITHROMYCIN 500 MG in DEXTROSE 5%-WATER 250 ML IV SCH (12:22)
[2017-09-07] MEDS: TRAMADOL HCL 50 MG TABLET PO PRN ×2 (15:32→22:40)
--- NOTE | 2017-09-07 17:49 | PDOC PROGRESS REPORT ---
Subjective Progress Note for:: 09/07/17 Subjective:: Patient is still wheezing but she is feeling a lot better she has no chest pain and minimal shortness of breath Reason For Visit: PNEUMONIA,COPD EXACERBATION Physical Exam Vital Signs: Temp Pulse Resp BP Pulse Ox 98.0 F 115 H 16 120/68 97 09/07/17 15:40 09/07/17 15:40 09/07/17 15:40 09/07/17 15:40 09/07/17 15:40 Intake & Output 09/06/17 09/07/17 09/08/17 00:59 00:59 00:59 Intake Total 700 Output Total 400 Balance 300 Weight 104.6 kg General appearance: PRESENT: no acute distress, well-developed, well-nourished Head exam: PRESENT: atraumatic, normocephalic Eye exam: PRESENT: conjunctival injection Neck exam: PRESENT: carotid bruit Respiratory exam: PRESENT: wheezes. ABSENT: rales, rhonchi Cardiovascular exam: PRESENT: RRR. ABSENT: diastolic murmur, rubs, systolic murmur GI/Abdominal exam: PRESENT: normal bowel sounds, soft. ABSENT: distended, guarding, mass, organolmegaly, rebound, tenderness Extremities exam: PRESENT: full ROM. ABSENT: calf tenderness, clubbing, pedal edema Neurological exam: PRESENT: alert, awake, CN II-XII grossly intact Results Laboratory Results: 09/07/17 05:43 09/07/17 09/07/17 05:43 05:43 Sodium 140.3 Potassium 5.2 H D Chloride 109 H Carbon Dioxide 20 L Anion Gap 11 BUN 11 Creatinine 0.78 Est GFR ( Amer) > 60 Est GFR (Non-Af Amer) > 60 Glucose 162 H Calcium 9.9 Total Bilirubin 0.8 AST 11 L ALT 25 Alkaline Phosphatase 43 Total Protein 6.8 Albumin 4.1 TSH 0.25 L 09/07/17 05:43 NT-Pro-B Natriuret Pep 81 Impressions: Chest X-Ray 09/06/17 11:45 IMPRESSION: Airspace disease in the right middle lobe, atelectasis versus pneumonia Assessment & Plan - Diagnosis (1) Asthma exacerbation Qualifiers: Asthma severity: severe Asthma persistence: unspecified Qualified Code(s) : J45.901 - Unspecified asthma with (acute) exacerbation Is this a current diagnosis for this admission?: Yes (2) Pneumonia Qualifiers: Pneumonia type: due to unspecified organism Laterality: unspecified laterality Lung location: unspecified part of lung Qualified Code(s): J18.9 - Pneumonia, unspecified organism Is this a current diagnosis for this admission?: Yes (3) Tobacco abuse Is this a current diagnosis for this admission?: Yes - Time Time Spent with patient: Continue present management Patient likely will be discharged in 24-48 hrs. if she continues to improve Time Spent with patient: 25-34 minutes
[2017-09-07] MEDS ORDERED: CEFTRIAXONE SODIUM 1,000 MG in DEXTROSE 5%-WATER 50 ML IV SCH (18:00)
[2017-09-07] MEDS ORDERED: CEFTRIAXONE 1 GM/D5W RTU 1 GM/50 ML RTUPB IV SCH (18:00)
[2017-09-07] MEDS: ZOLPIDEM TARTRATE 5 MG TABLET PO PRN (22:40)
[2017-09-08] MEDS: IPRATROPIUM/ALBUTEROL 0.5-2.5 MG/3 ML AMPUL NEB PRN ×3 (05:20→23:15)
[2017-09-08] MEDS: TRAMADOL HCL 50 MG TABLET PO PRN ×3 (05:22→22:41)
[2017-09-08] MEDS: METHYLPREDNISOLONE INJ 40 MG/1 ML SDV IV SCH (05:22)
[2017-09-08] MEDS: ENOXAPARIN SODIUM INJ 40 MG/0.4 ML DISP.SYRIN SUBCUT SCH (09:37)
[2017-09-08] MEDS: GUAIFENESIN 600 MG TABLET.SA PO SCH ×2 (09:38→22:38)
[2017-09-08] MEDS: AZITHROMYCIN 500 MG in DEXTROSE 5%-WATER 250 ML IV SCH (11:59)
[2017-09-08] MEDS ORDERED: AZITHROMYCIN 250 MG TABLET PO ONE (13:00)
[2017-09-08] MEDS: AMOXICILLIN TR/POT CLAVULANATE 500-125 MG TAB PO SCH ×2 (13:14→22:38)
[2017-09-08] MEDS: CALCIUM CARBONATE 500 MG TAB.CHEW PO PRN (16:36)
--- NOTE | 2017-09-08 16:38 | PDOC PROGRESS REPORT ---
Subjective Progress Note for:: 09/08/17 Subjective:: The patient is resting in her bed. She states that she is feeling much better today. Her wheezing has almost stopped. We did discuss her situation at length. The patient reports that she has been on high-dose steroids basically since last summer. She states she rarely gets the steroid dose below 60 mg a day. She states once he got tapered down all the way to 10 mg but then she flared back up and had to be placed back on steroids. She has seen Dr. Mcdaniel in the past but is interested in obtaining a new spice fumigator as he is quite difficult to get into. Her inside sales territory manager has been prescribing her prednisone. We will try to get her referred to [facility] internal medicine pulmonology and [place] at the time of discharge as she states that that is closer to her home. Overall she states she is greatly improved. She is concerned about the effects of the prednisone and states that she has gained a significant amount of weight and is starting to lose her hair. She states her breathing is improved. She is no longer wheezing or short of breath. She is tolerating her diet. No nausea, vomiting or diarrhea. No dysuria, frequency or hematuria. Reason For Visit: PNEUMONIA,COPD EXACERBATION Physical Exam Vital Signs: Temp Pulse Resp BP Pulse Ox 98.5 F 105 H 16 140/79 H 96 09/08/17 15:00 09/08/17 15:00 09/08/17 15:00 09/08/17 15:00 09/08/17 15:00 Intake & Output 09/07/17 09/08/17 09/09/17 06:59 06:59 06:59 Intake Total 700 3018 Output Total 400 Balance 300 3018 Weight 104.6 kg 105.4 kg General appearance: PRESENT: no acute distress, obese, well-developed, well- nourished Head exam: PRESENT: atraumatic, normocephalic Mouth exam: PRESENT: moist, tongue midline Respiratory exam: PRESENT: clear to auscultation juan a, decreased breath sounds. ABSENT: rales, rhonchi, wheezes Cardiovascular exam: PRESENT: RRR. ABSENT: diastolic murmur, rubs, systolic murmur GI/Abdominal exam: PRESENT: normal bowel sounds, soft. ABSENT: distended, guarding, mass, organolmegaly, rebound, tenderness Rectal exam: PRESENT: deferred Extremities exam: PRESENT: full ROM. ABSENT: calf tenderness, clubbing, pedal edema Neurological exam: PRESENT: alert, awake, oriented to person, oriented to place , oriented to time, oriented to situation, CN II-XII grossly intact. ABSENT: motor sensory deficit Psychiatric exam: PRESENT: appropriate affect, normal mood. ABSENT: homicidal ideation, suicidal ideation Skin exam: PRESENT: dry, intact, warm. ABSENT: cyanosis, rash Results Laboratory Results: 09/07/17 05:43 09/07/17 05:43 NT-Pro-B Natriuret Pep 81 Impressions: Chest X-Ray 09/06/17 11:45 IMPRESSION: Airspace disease in the right middle lobe, atelectasis versus pneumonia Assessment & Plan - Diagnosis (1) Pneumonia Qualifiers: Pneumonia type: due to unspecified organism Laterality: unspecified laterality Lung location: unspecified part of lung Qualified Code(s): J18.9 - Pneumonia, unspecified organism Is this a current diagnosis for this admission?: Yes Plan: Concerns for gram positives and atypicals. I am going to change her over to an oral regimen today. We will give her p.o. Augmentin and Zithromax. (2) Asthma exacerbation Qualifiers: Asthma severity: severe Asthma persistence: unspecified Qualified Code(s) : J45.901 - Unspecified asthma with (acute) exacerbation Is this a current diagnosis for this admission?: Yes Plan: She will be referred to pulmonology to [facility] internal medicine at discharge. She has been started on 60 mg of p.o. prednisone. Her IV Solu- Medrol has been stopped today. (3) Tobacco abuse Is this a current diagnosis for this admission?: Yes Plan: I have highly encouraged the patient to stop smoking. (4) Hyperglycemia Is this a current diagnosis for this admission?: Yes Plan: Secondary to steroids (5) Hyperkalemia Is this a current diagnosis for this admission?: Yes Plan: She will have a chemistry panel drawn in the morning. I believe this could be a lab error (6) Obesity (BMI 30-39.9) Is this a current diagnosis for this admission?: Yes Plan: Dietary discretion is advised. She has gained a significant amount of weight due to her high dose prednisone. - Time Time Spent with patient: 25-34 minutes - Inpatient Certification Medical Necessity: Other - Inpatient hospitalization remains necessary. The patient has had multiple hospitalizations for asthma exacerbations. I am going to transition her over to an oral regimen prior to discharge. If she remains stable she likely can be discharged home tomorrow.
[2017-09-08] MEDS: ZOLPIDEM TARTRATE 5 MG TABLET PO PRN (22:42)
[2017-09-09] MEDS: CALCIUM CARBONATE 500 MG TAB.CHEW PO PRN ×2 (03:54→08:30)
[2017-09-09] MEDS: AMOXICILLIN TR/POT CLAVULANATE 500-125 MG TAB PO SCH (05:14)
[2017-09-09] MEDS: TRAMADOL HCL 50 MG TABLET PO PRN ×2 (05:16→11:27)
[2017-09-09 07:05] LABS: ABSOLUTE BASOPHILS # (AUTO) 0.1 10^3/uL (0.0-0.2); ABSOLUTE EOSINOPHILS # (AUTO) 0.2 10^3/uL (0.0-0.6); ABSOLUTE LYMPHOCYTES (AUTO) 5.4 10^3/uL (0.5-4.7); ABSOLUTE MONOCYTES (AUTO) 1.1 10^3/uL (0.1-1.4); ABSOLUTE NEUT (AUTO) 11.1 10^3/uL (1.7-8.2); BASOPHILS % (AUTO) 0.6 % (0-2); EOSINOPHILS % (AUTO) 1.4 % (0-6); HEMATOCRIT 37.6 % (36.0-47.0); HEMOGLOBIN 12.6 g/dL (12.0-15.5); LYMPHOCYTES % (AUTO) 30.1 % (13-45); MEAN CORPUSCULAR HEMOGLOBIN 29.1 pg (27.0-33.4); MEAN CORPUSCULAR HGB CONC 33.4 g/dL (32.0-36.0); MEAN CORPUSCULAR VOLUME 87 fl (80-97); MONOCYTES % (AUTO) 6.1 % (3-13); PLATELET COUNT 482 10^3/uL (150-450); RED BLOOD COUNT 4.31 10^6/uL (3.72-5.28); RED CELL DISTRIBUTION WIDTH 16.4 % (11.5-14.0); SEGMENTED NEUTROPHILS % (AUTO) 61.8 % (42-78); TOTAL CELLS COUNTED % (AUTO) 100 %; WHITE BLOOD COUNT 17.9 10^3/uL (4.0-10.5)
[2017-09-09 07:29] LABS: ANION GAP 11 (5-19); BLOOD UREA NITROGEN 18 mg/dL (7-20); CARBON DIOXIDE 22 mmol/L (22-30); CHLORIDE 105 mmol/L (98-107); GLUCOSE 168 mg/dL (75-110); MAGNESIUM 1.9 mg/dL (1.6-2.3); POTASSIUM 4.2 mmol/L (3.6-5.0); SODIUM 137.9 mmol/L (137-145)
--- NOTE | 2017-09-09 09:02 | PDOC DISCHARGE SUMMARY ---
General - Admit/Disc Date/PCP Admission Date/Primary Care Provider: 09/06/17 15:44 New castings trimmer: Dr Myers at [facility] in [facility] Discharge Date: 09/09/17 - Discharge Diagnosis (1) Pneumonia Is this a current diagnosis for this admission?: Yes Summary: Concerns for gram positives and atypicals. She was initially on IV Rocephin and Zithromax in the hospital. She has been changed over to p.o. Augmentin and will complete a course of Zithromax as an outpatient. (2) Asthma exacerbation Is this a current diagnosis for this admission?: Yes Summary: The patient has severe persistent asthma with multiple hospitalizations. She has been on high-dose steroids at about 60 mg daily since this summer. Certainly she needs to be weaned off of steroids as soon as possible. I am setting her up with a new primary care provider as well as a wearing apparel assembler at [facility] internal medicine. She will continue Advair and I am adding Symbicort to her regimen as well as Singulair. She is encouraged to take an antihistamine daily. She will complete a steroid taper as an outpatient and hopefully we will get her a new patient appointment prior to her taper being completed. (3) Tobacco abuse Is this a current diagnosis for this admission?: Yes Summary: She is highly encouraged to quit smoking. I have discussed this at length with her. (4) Hyperglycemia Is this a current diagnosis for this admission?: Yes Summary: Secondary to steroids. Certainly she needs to be weaned off as soon as possible. (5) Hyperkalemia Is this a current diagnosis for this admission?: Yes Summary: Resolved. This was quite mild (6) Obesity (BMI 30-39.9) Is this a current diagnosis for this admission?: Yes Summary: The patient has gained a significant amount of weight over the past 6 months due to her high dose steroids which need to be weaned. - Additional Information Resuscitation Status: Full Code Discharge Diet: Regular Discharge Activity: Activity As Tolerated, Balance Activity w/Rest, Slowly Increase Activity Prescriptions: Montelukast Sodium [Singulair 10 mg Tablet] 10 mg PO QHS #30 tablet Albuterol Sulfate [Proair HFA] 1 - 2 puff IH Q4 PRN #1 inhaler PRN Reason: Amox Tr/Potassium Clavulanate [Augmentin "500" Tablet] 1 tab PO Q8 #21 tablet Azithromycin [Zithromax 250 mg Tablet] 500 mg PO DAILY #3 tablet Budesonide/Formoterol Fumarate [Symbicort Hfa 160-4.5 Mcg Inhaler 6 gm] 2 puff IH Q12 #1 inhaler Guaifenesin [Mucinex Sr 600 mg Tablet.sa] 600 mg PO Q12 #30 tablet.sa Prednisone [Deltasone 20 mg Tablet] 10 mg PO ASDIR #63 tablet Home Medications: Fluticasone/Salmeterol [Advair 250-50 Diskus 28 dose] 1 inh IH Q12 09/06/17 Albuterol Sulfate [Proair HFA] 1 - 2 puff IH Q4 PRN #1 inhaler 09/09/17 Amox Tr/Potassium Clavulanate [Augmentin "500" Tablet] 1 tab PO Q8 #21 tablet 09/09/17 Azithromycin [Zithromax 250 mg Tablet] 500 mg PO DAILY #3 tablet 09/09/17 Budesonide/Formoterol Fumarate [Symbicort Hfa 160-4.5 Mcg Inhaler 6 gm] 2 puff IH Q12 #1 inhaler 09/09/17 Guaifenesin [Mucinex Sr 600 mg Tablet.sa] 600 mg PO Q12 #30 tablet.sa 09/09/17 Montelukast Sodium [Singulair 10 mg Tablet] 10 mg PO QHS #30 tablet 09/09/17 Prednisone [Deltasone 20 mg Tablet] 10 mg PO ASDIR #63 tablet 09/09/17 History of Present Illness History of Present Illness: KEEGAN ADAM is a 32 year old female who has had multiple hospitalizations for acute asthma exacerbations. She has been evaluated by pulmonology in the past and had a complete workup. She has not followed with pulmonology in quite some time but is been seen an creative writing professor. The patient reports that she was placed on fairly high-dose steroids at about 6o milligrams a day by her creative writing professor. Every attempt to wean it results in an exacerbation most often requiring hospitalization. The patient presented once again to the hospital with increased shortness of breath. She was found to have evidence of pneumonia and was having yet another acute asthma exacerbation. The patient was treated with antibiotics as mentioned above and IV Solu-Medrol. She has been successfully weaned over to p.o. prednisone at this point. The patient needs a good primary care provider and I have spoken to [facility] internal medicine in [place] who is going to see the patient next Saturday which I certainly appreciate. She likely will require a pulmonology evaluation. I have started the patient on Symbicort. She will continue her Advair. I am also going to start her on Singulair and she should continue an antihistamine daily. At this point maximum hospital benefit has been reached. The patient will be discharged to home today in stable condition. Physical Exam Vital Signs: Temp Pulse Resp BP Pulse Ox 98.5 F 118 H 18 144/81 H 97 09/09/17 07:28 09/09/17 07:28 09/09/17 07:28 09/09/17 07:28 09/09/17 07:28 Intake & Output 09/08/17 09/09/17 09/10/17 06:59 06:59 06:59 Intake Total 3018 2170 Balance 3018 2170 Weight 105.4 kg 106.2 kg General appearance: PRESENT: no acute distress, well-developed, well-nourished, other - She has a BMI of 36.7 Head exam: PRESENT: atraumatic, normocephalic Mouth exam: PRESENT: moist, tongue midline Respiratory exam: PRESENT: clear to auscultation juan a, decreased breath sounds Cardiovascular exam: PRESENT: RRR. ABSENT: diastolic murmur, rubs, systolic murmur GI/Abdominal exam: PRESENT: normal bowel sounds, soft. ABSENT: distended, guarding, mass, organolmegaly, rebound, tenderness Extremities exam: PRESENT: full ROM. ABSENT: calf tenderness, clubbing, pedal edema Musculoskeletal exam: PRESENT: ambulatory Neurological exam: PRESENT: alert, awake, oriented to person, oriented to place , oriented to time, oriented to situation, CN II-XII grossly intact. ABSENT: motor sensory deficit Psychiatric exam: PRESENT: appropriate affect, normal mood. ABSENT: homicidal ideation, suicidal ideation Skin exam: PRESENT: dry, intact, warm. ABSENT: cyanosis, rash Results Laboratory Results: 09/09/17 06:49 09/09/17 06:49 09/09/17 09/09/17 06:49 06:49 WBC 17.9 H RBC 4.31 Hgb 12.6 Hct 37.6 MCV 87 MCH 29.1 MCHC 33.4 RDW 16.4 H Plt Count 482 H Seg Neutrophils % 61.8 Lymphocytes % 30.1 Monocytes % 6.1 Eosinophils % 1.4 Basophils % 0.6 Absolute Neutrophils 11.1 H Absolute Lymphocytes 5.4 H Absolute Monocytes 1.1 Absolute Eosinophils 0.2 Absolute Basophils 0.1 Sodium 137.9 Potassium 4.2 Chloride 105 Carbon Dioxide 22 Anion Gap 11 BUN 18 Creatinine 0.74 Est GFR ( Amer) > 60 Est GFR (Non-Af Amer) > 60 Glucose 168 H Calcium 10.0 Magnesium 1.9 09/07/17 05:43 NT-Pro-B Natriuret Pep 81 Impressions: Chest X-Ray 09/06/17 11:45 IMPRESSION: Airspace disease in the right middle lobe, atelectasis versus pneumonia Qualifiers PATEINT BEING DISCHARGED WITH ANY OF THE FOLLOWING DIAGNOSIS?: No Plan Discharge Plan: I have personally made the patient a follow-up appointment at [facility] internal medicine with Dr. Myers next Saturday. Time Spent: Greater than 30 Minutes
[2017-09-09] MEDS: GUAIFENESIN 600 MG TABLET.SA PO SCH (09:30)
[2017-09-09] MEDS: ENOXAPARIN SODIUM INJ 40 MG/0.4 ML DISP.SYRIN SUBCUT SCH (09:30)
[2017-09-09] MEDS ORDERED: PREDNISONE 20 MG TABLET PO SCH (10:00)
[2017-09-09] MEDS: IPRATROPIUM/ALBUTEROL 0.5-2.5 MG/3 ML AMPUL NEB PRN (11:31)
[2017-09-09 11:42] VITALS: BP 140/79
[2017-09-09] MEDS ORDERED: AZITHROMYCIN 250 MG TABLET PO SCH (12:00)
== END 2017-09-09 12:03 | disposition home or self-care (01) | DRG 194 ==
LOC: ER 11:31 → EH 15:44 → 4S 18:02 → 4N 09-09 05:15
PROVIDERS: ADMIT Internal Medicine; ATTEND Internal Medicine
DX: J18.9 Pneumonia, unspecified organism (principal); J45.51 Severe persistent asthma with (acute) exacerbation; R73.9 Hyperglycemia, unspecified; E87.5 Hyperkalemia; E66.9 Obesity, unspecified; F17.210 Nicotine dependence, cigarettes, uncomplicated; Z68.36 Body mass index [BMI] 36.0-36.9, adult; Z79.51 Long term (current) use of inhaled steroids; Z79.52 Long term (current) use of systemic steroids; Z79.899 Other long term (current) drug therapy
CPT/HCPCS: 36415; 71046; 80048; 80053; 83036; 83735; 83880; 84443; 84703; 85025; 87040; 94640; 94667; 96365; 96366; 96375; 99285; J0456; J0696; J2920; J2930; J3475; J7060; J7512; J7620

== ENCOUNTER 2018-04-15 23:53 | Inpatient (IN) | payer MEDICAID, OTHER ==
[2018-04-16] MEDS ORDERED: NORMAL SALINE 1000 ML 1,000 ML IV ONE (00:29)
[2018-04-16] MEDS ORDERED: IPRATROPIUM/ALBUTEROL 0.5-2.5 MG/3 ML AMPUL NEB ONE ×2 (00:30→02:42)
[2018-04-16] MEDS ORDERED: METHYLPREDNISOLONE INJ 125 MG/2 ML SDV IV ONE (00:30)
[2018-04-16] MEDS ORDERED: ONDANSETRON HCL INJ/PF 4 MG/2 ML SDV IV ONE (01:04)
[2018-04-16] MEDS ORDERED: ACETAMINOPHEN 325 MG TABLET PO ONE (01:05)
[2018-04-16] MEDS ORDERED: ONDANSETRON HCL INJ/PF 4 MG/2 ML SDV ONE ×2 (01:06→09:19)
--- NOTE | 2018-04-16 01:08 | ER Document Report ---
ED General - General Mode of Arrival: Ambulatory Information source: Patient TRAVEL OUTSIDE OF THE [place] IN LAST 30 DAYS: No <LEDA CHIANG - Last Filed: 04/16/18 04:41> <ADIN AUSTIN - Last Filed: 04/16/18 05:31> - General Chief Complaint: Asthma Exacerbation Stated Complaint: FEVER Time Seen by Provider: 04/16/18 00:28 Notes: Patient is a 32-year-old female presenting to the emergency department complaining of difficulty breathing onset 2 days ago. Patient states that she has had a cold and sinus problems for 2 weeks now but she started having asthmatic symptoms 2 days ago. She states that she has been taking DuoNeb in attempt to alleviate her symptoms at home but that has not helped. She reports being hospitalized on multiple occasions for breathing difficulties. (LEDA CHIANG) - Related Data Allergies/Adverse Reactions: levofloxacin [From Levaquin] Allergy (Verified 09/06/17 11:49) nickel Allergy (Verified 09/06/17 11:49) Past Medical History - General Information source: Patient - Social History Smoking Status: Former Smoker Family History: Arthritis, DM - Grandparents had diabetes, Hypertension, Malignancy - Father has cancer of the throat Pulmonary Medical History: Reports: Hx Asthma, Hx Pneumonia Renal/ Medical History: Reports: Hx Ovarian Cysts, Hx Pelvic Inflammatory Disease Past Surgical History: Reports: Hx Section, Hx Cholecystectomy, Hx Tonsillectomy - Immunizations Immunizations up to date: Yes Hx Diphtheria, Pertussis, Tetanus Vaccination: Yes <LEDA CHIANG - Last Filed: 04/16/18 04:41> Review of Systems - Review of Systems Constitutional: No symptoms reported EENT: No symptoms reported Cardiovascular: No symptoms reported Respiratory: See HPI Gastrointestinal: No symptoms reported Genitourinary: No symptoms reported Female Genitourinary: No symptoms reported Musculoskeletal: No symptoms reported Skin: No symptoms reported Hematologic/Lymphatic: No symptoms reported Neurological/Psychological: No symptoms reported -: Yes All other systems reviewed and negative <LEDA CHIANG - Last Filed: 04/16/18 04:41> Physical Exam - Vital signs Interpretation: Tachycardic, Hypoxic, Tachypneic - General General appearance: Alert In distress: Moderate - Difficulty breathing - HEENT Head: Normocephalic, Atraumatic Eyes: Normal Pupils: PERRL Mucous membranes: Dry - Respiratory Respiratory status: Respiratory distress, Tachypnea Breath sounds: Decreased air movement, Wheezing - Course throughout - Cardiovascular Rhythm: Regular, Tachycardia Heart sounds: Normal auscultation Murmur: No - Abdominal Inspection: Normal Bowel sounds: Normal Tenderness: Nontender - Extremities General upper extremity: Normal inspection, Normal ROM, Normal strength General lower extremity: Normal inspection, Normal ROM, Normal strength - Neurological Neuro grossly intact: Yes Cognition: Normal Orientation: AAOx4 [place]oya Coma Scale Eye Opening: Spontaneous [place] Coma Scale Verbal: Oriented [place] Coma Scale Motor: Obeys Commands [place] Coma Scale Total: 15 Speech: Normal Motor strength normal: LUE, RUE, LLE, RLE Sensory: Normal - Psychological Associated symptoms: Normal affect, Normal mood - Skin Skin Temperature: Hot Skin Moisture: Dry Skin Color: Normal <ADIN AUSTIN - Last Filed: 04/16/18 05:31> - Vital signs Vitals: Temp Pulse Resp BP Pulse Ox 98.9 F 109 H 18 137/87 H 92 04/16/18 00:00 04/16/18 00:00 04/16/18 00:00 04/16/18 00:00 04/16/18 00:00 Course - Laboratory Result Diagrams: 04/16/18 00:45 04/16/18 00:45 <LEDA CHIANG - Last Filed: 04/16/18 04:41> - Laboratory Result Diagrams: 04/16/18 00:45 04/16/18 00:45 <ADIN AUSTIN - Last Filed: 04/16/18 05:31> - Re-evaluation Re-evalutation: 04/16/18 02:45 Patient rechecked. Respiratory status improving, wheezing decreased. (LEDA CHIANG) 04/16/18 03:29 Patient is a 32-year-old female with a history of asthma who comes in with difficulty breathing, wheezing, hypoxia. Patient has had a productive cough over the last week. X-ray showing multifocal pneumonia. Patient symptoms including fever, productive cough, and wheezing are consistent with this clinically. Given her persistent wheezing, hypoxia, and pneumonia, patient will be kept in the hospital. Cultures have been sent. Rocephin and azithromycin have been initiated. Patient is agreeable to this plan. Stable at the time of admission. (ADIN AUSTIN) - Vital Signs Vital signs: Temp Pulse Resp BP Pulse Ox 98.9 F 109 H 17 117/76 91 L 04/16/18 00:00 04/16/18 00:00 04/16/18 03:01 04/16/18 03:01 04/16/18 03:01 - Laboratory Laboratory results interpreted by me: 04/16/18 04/16/18 04/16/18 00:45 00:45 00:45 RDW 14.1 H Eosinophils % 8.0 H Absolute Eosinophils 0.7 H VBG pH 7.44 H BUN 5 L Urine Ketones Urine Blood Urine Urobilinogen 04/16/18 01:54 RDW Eosinophils % Absolute Eosinophils VBG pH BUN Urine Ketones TRACE H Urine Blood MODERATE H Urine Urobilinogen 4.0 H Critical Care Note - Critical Care Note Total time excluding time spent on procedures (mins): 45 - Evaluation and management of respiratory distress, hypoxia, multiple re-evaluations, diagnosis of pneumonia, treatment of pneumonia, coordination of admission, counseling of patient <ADIN AUSTIN - Last Filed: 04/16/18 05:31> Discharge <LEDA CHIANG - Last Filed: 04/16/18 04:41> - Discharge Admitting Provider: [facility] Unit Admitted: Telemetry <ADIN AUSTIN - Last Filed: 04/16/18 05:31> - Discharge Clinical Impression: Respiratory distress, Hypoxia Asthma exacerbation Qualifiers: Asthma severity: moderate Asthma persistence: unspecified Qualified Code(s): J45.901 - Unspecified asthma with (acute) exacerbation Pneumonia Qualifiers: Pneumonia type: due to unspecified organism Laterality: bilateral Lung location : lower lobe of lung Qualified Code(s): J18.1 - Lobar pneumonia, unspecified organism Condition: Stable Disposition: ADMITTED INPATIENT Scribe Attestation: 04/16/18 05:31 I personally performed the services described in the documentation, reviewed and edited the documentation which was dictated to the scribe in my presence, and it accurately records my words and actions. (ADIN AUSTIN) Scribe Documentation - Scribe Written by Scribe:: Alyssa Casillas, 04/16/2018 03:41 acting as scribe for :: Guillaume <LEDA CHIANG - Last Filed: 04/16/18 04:41>
[2018-04-16 01:25] LABS: ABSOLUTE BASOPHILS # (AUTO) 0.1 10^3/uL (0.0-0.2); ABSOLUTE EOSINOPHILS # (AUTO) 0.7 10^3/uL (0.0-0.6); ABSOLUTE LYMPHOCYTES (AUTO) 2.7 10^3/uL (0.5-4.7); ABSOLUTE MONOCYTES (AUTO) 0.6 10^3/uL (0.1-1.4); HEMATOCRIT 39.9 % (36.0-47.0); HEMOGLOBIN 13.6 g/dL (12.0-15.5); LYMPHOCYTES % (AUTO) 29.2 % (13-45); MEAN CORPUSCULAR HEMOGLOBIN 28.9 pg (27.0-33.4); MEAN CORPUSCULAR HGB CONC 34.2 g/dL (32.0-36.0); MEAN CORPUSCULAR VOLUME 84 fl (80-97); MONOCYTES % (AUTO) 6.6 % (3-13); PLATELET COUNT 356 10^3/uL (150-450); RED BLOOD COUNT 4.72 10^6/uL (3.72-5.28); RED CELL DISTRIBUTION WIDTH 14.1 % (11.5-14.0); SEGMENTED NEUTROPHILS % (AUTO) 55.2 % (42-78); TOTAL CELLS COUNTED % (AUTO) 100 %; WHITE BLOOD COUNT 9.1 10^3/uL (4.0-10.5)
[2018-04-16 01:26] LABS: VENOUS BLOOD BASE EXCESS 2.1 mmol/L; VENOUS BLOOD HCO3 26.4 mmol/L (20-32); VENOUS BLOOD PCO2 39.8 mmHg (35-63); VENOUS BLOOD PH 7.44 (7.30-7.42)
[2018-04-16] MEDS ORDERED: ACETAMINOPHEN WITH CODEINE #3 TABLET PO ONE (01:30)
[2018-04-16 01:32] LABS: INTERNATIONAL RATION (INR) 0.94; PROTHROMBIN TIME 13.1 SEC (11.4-15.4)
[2018-04-16 01:39] LABS: ALANINE AMINOTRANSFERASE 39 U/L (9-52); ALBUMIN 4.1 g/dL (3.5-5.0); ALKALINE PHOSPHATASE 55 U/L (38-126); ANION GAP 11 (5-19); ASPARTATE AMINO TRANSFERASE 20 U/L (14-36); BILIRUBIN,DIRECT 0.2 mg/dL (0.0-0.4); BILIRUBIN,TOTAL 1.1 mg/dL (0.2-1.3); BLOOD UREA NITROGEN 5 mg/dL (7-20); CARBON DIOXIDE 25 mmol/L (22-30); CHLORIDE 104 mmol/L (98-107); GLUCOSE 107 mg/dL (75-110); POTASSIUM 3.9 mmol/L (3.6-5.0); SODIUM 139.6 mmol/L (137-145); TOTAL PROTEIN 7.3 g/dL (6.3-8.2)
[2018-04-16] MEDS: MAGNESIUM SULFATE/D5W 1 GM/100 ML RTUPB IV SCH ×2 (01:46→03:09)
[2018-04-16 02:26] LABS: APPEARANCE,URINE SLIGHTLY-CLOUDY; BILIRUBIN,URINE NEGATIVE (NEGATIVE); COLOR,URINE YELLOW; GLUCOSE, URINE NEGATIVE (NEGATIVE); KETONES,URINE TRACE mg/dL (NEGATIVE); LEUKOCYTE ESTERASE,URINE NEGATIVE (NEGATIVE); NITRITE,URINE NEGATIVE (NEGATIVE); PROTEIN,URINE NEGATIVE (NEGATIVE); URINE SPECIFIC GRAVITY 1.016
--- NOTE | 2018-04-16 03:12 | RADIOLOGY REPORT (SQ) ---
EXAM DESCRIPTION: XR CHEST 2 VIEWS COMPLETED DATE/TME: 04/16/2018 00:30 CLINICAL HISTORY: 32 years, Female, SOB, fever COMPARISON: September 06, 2017 NUMBER OF VIEWS: Two view LIMITATIONS: None. FINDINGS: Mild streaky and patchy opacities of the lingula and right middle lobe. Normal cardiac silhouette. Adequate lung volume. Intact bony thorax. IMPRESSION: Multifocal pneumonia pattern. Differential diagnosis includes mild-moderate central pulmonary edema.
[2018-04-16] MEDS ORDERED: CEFTRIAXONE 1 GM/D5W RTU 1 GM/50 ML RTUPB IV ONE (03:33)
[2018-04-16] MEDS ORDERED: AZITHROMYCIN INJ 500 MG VIAL IV ONE (03:33)
[2018-04-16] MEDS ORDERED: CEFTRIAXONE INJ 1000 MG VIAL ONE (03:59)
[2018-04-16] MEDS ORDERED: IPRATROPIUM/ALBUTEROL 0.5-2.5 MG/3 ML AMPUL NEB PRN (04:28)
[2018-04-16] MEDS ORDERED: AZITHROMYCIN INJ 500 MG VIAL IV PRN (04:39)
[2018-04-16] MEDS: AZITHROMYCIN 500 MG in DEXTROSE 5%-WATER 250 ML IV SCH (05:01)
[2018-04-16] MEDS: HEPARIN SOD (PORCINE) 5,000 UNIT/ML 1 ML SYRINGE SUBCUT SCH ×3 (05:02→21:18)
--- NOTE | 2018-04-16 05:23 | RADIOLOGY REPORT (SQ) ---
EXAM DESCRIPTION: CT CHEST WITHOUT IV CONTRAST COMPLETED DATE/TME: 04/16/2018 00:00 CLINICAL HISTORY: 32 years Female, atypical pna Comparison: 10/06/14 Technique: No contrast. Coronal and sagittal reformat. This exam was performed according to our departmental dose-optimization program, which includes automated exposure control, adjustment of the mA and/or kV according to patient size and/or use of iterative reconstruction technique. [facility]: Dose Right [facility]: CareDose [facility]: Dose Right [facility]: Teradose 4D [facility]: Kiddie Kist LIMITATIONS: None Findings: Scattered groundglass patchy airspace opacities of both lung raymond especially lateral upper lobes, small streaky opacity of the right middle lobe and lingula. Cholecystectomy. Hepatic steatosis. Unenhanced inferior neck, axillae, mediastinum, lungs, airway, lymphatics, heart, vasculature, upper abdomen, and musculoskeleton appear otherwise unremarkable. Impression: Moderate mixed groundglass airpace and streaky opacities, recurrent/worsened compared with prior exam from September 2014. Differential diagnosis includes atypical/eosinophilic pneumonia and pulmonary edema.
[2018-04-16] MEDS: ACETAMINOPHEN 325 MG TABLET PO PRN ×2 (05:59→17:35)
[2018-04-16] MEDS ORDERED: METHYLPREDNISOLONE INJ 125 MG/2 ML SDV IV SCH (06:00)
[2018-04-16] MEDS ORDERED: CEFTRIAXONE 1 GM/D5W RTU 1 GM/50 ML RTUPB IV SCH (06:00)
--- NOTE | 2018-04-16 06:38 | PDOC H&P ---
History of Present Illness Admission Date/PCP: 04/16/18 03:43 Patient complains of: Shortness of breath and cough History of Present Illness: KEEGAN ADAM is a 32 year old female with a past medical history of asthma versus COPD, 31-uhrn-eloa smoking, and pneumonia. She presents with 48 hours of exceptional shortness of breath with nonproductive cough associated with wheezing and peak flow of 200 prompting evaluation emergency room where she is found to have tachypnea, global wheezing and paroxysms of cough with speech and a multifocal pneumonia. She receives magnesium albuterol nebulizer with limited improvement. The hospitalist for admission. She denies recent antibiotic use,. Infectious contacts or travel Past Medical History Cardiac Medical History: Reports: None Pulmonary Medical History: Reports: Asthma, Pneumonia EENT Medical History: Reports: None Neurological Medical History: Reports: None Endocrine Medical History: Reports: None Denies: Diabetes Mellitus Type 2 Renal/ Medical History: Reports: None Malignancy Medical History: Reports: None GI Medical History: Reports: None Musculoskeltal Medical History: Reports: None Skin Medical History: Reports: None Psychiatric Medical History: Reports: Tobacco Dependency Traumatic Medical History: Reports: None Hematology: Reports: None Denies: Anemia Infectious Medical History: Reports: None Past Surgical History Past Surgical History: Reports: Section, Cholecystectomy, Tonsillectomy Social History Information Source: Patient, [facility] Records Smoking Status: Former Smoker Frequency of Alcohol Use: None Hx Recreational Drug Use: No Drugs: None Hx Prescription Drug Abuse: No - Advance Directive Resuscitation Status: Full Code Family History Family History: Arthritis, DM - Grandparents had diabetes, Hypertension, Malignancy - Father has cancer of the throat Parental Family History Reviewed: Yes Children Family History Reviewed: Yes Sibling(s) Family History Reviewed.: Yes Medication/Allergy Home Medications: Fluticasone/Salmeterol [Advair 250-50 Diskus 28 dose] 1 inh IH Q12 09/06/17 Albuterol Sulfate [Proair HFA] 1 - 2 puff IH Q4 PRN #1 inhaler 09/09/17 Amox Tr/Potassium Clavulanate [Augmentin "500" Tablet] 1 tab PO Q8 #21 tablet 09/09/17 Azithromycin [Zithromax 250 mg Tablet] 500 mg PO DAILY #3 tablet 09/09/17 Budesonide/Formoterol Fumarate [Symbicort Hfa 160-4.5 Mcg Inhaler 6 gm] 2 puff IH Q12 #1 inhaler 09/09/17 Guaifenesin [Mucinex Sr 600 mg Tablet.sa] 600 mg PO Q12 #30 tablet.sa 09/09/17 Montelukast Sodium [Singulair 10 mg Tablet] 10 mg PO QHS #30 tablet 09/09/17 Prednisone [Deltasone 20 mg Tablet] 10 mg PO ASDIR #63 tablet 09/09/17 Allergies/Adverse Reactions: levofloxacin [From Levaquin] Allergy (Verified 09/06/17 11:49) nickel Allergy (Verified 09/06/17 11:49) Review of Systems Constitutional: ABSENT: chills, fever(s), headache(s), weight gain, weight loss Eyes: ABSENT: visual disturbances Ears: ABSENT: hearing changes Cardiovascular: ABSENT: chest pain, dyspnea on exertion, edema, orthropnea, palpitations Respiratory: ABSENT: cough, hemoptysis Gastrointestinal: ABSENT: abdominal pain, constipation, diarrhea, hematemesis, hematochezia, nausea, vomiting Genitourinary: ABSENT: dysuria, hematuria Musculoskeletal: ABSENT: joint swelling Integumentary: ABSENT: rash, wounds Neurological: ABSENT: abnormal gait, abnormal speech, confusion, dizziness, focal weakness, syncope Psychiatric: ABSENT: anxiety, depression, homidical ideation, suicidal ideation Endocrine: ABSENT: cold intolerance, heat intolerance, polydipsia, polyuria Hematologic/Lymphatic: ABSENT: easy bleeding, easy bruising Physical Exam Vital Signs: Temp Pulse Resp BP Pulse Ox 98.9 F 109 H 17 117/76 91 L 04/16/18 00:00 04/16/18 00:00 04/16/18 03:01 04/16/18 03:01 04/16/18 03:01 Intake & Output 04/14/18 04/15/18 04/16/18 11:59 11:59 11:59 Intake Total 100 Balance 100 Weight 95.254 kg General appearance: PRESENT: cooperative, mild distress, well-developed, well- nourished. ABSENT: disheveled Head exam: PRESENT: atraumatic, normocephalic Eye exam: PRESENT: conjunctiva pink, EOMI, PERRLA. ABSENT: scleral icterus Ear exam: PRESENT: normal external ear exam Mouth exam: PRESENT: moist, tongue midline Neck exam: ABSENT: carotid bruit, JVD, lymphadenopathy, thyromegaly Respiratory exam: PRESENT: accessory muscle use, crackles, prolonged expiratory phas, retraction, tachypnea, wheezes. ABSENT: rales, rhonchi Cardiovascular exam: PRESENT: RRR. ABSENT: diastolic murmur, rubs, systolic murmur Pulses: PRESENT: normal dorsalis pedis pul Vascular exam: PRESENT: normal capillary refill GI/Abdominal exam: PRESENT: normal bowel sounds, soft. ABSENT: distended, guarding, mass, organolmegaly, rebound, tenderness Rectal exam: PRESENT: deferred Extremities exam: PRESENT: full ROM. ABSENT: calf tenderness, clubbing, pedal edema Neurological exam: PRESENT: alert, awake, oriented to person, oriented to place , oriented to time, oriented to situation, CN II-XII grossly intact. ABSENT: motor sensory deficit Psychiatric exam: PRESENT: appropriate affect, normal mood. ABSENT: homicidal ideation, suicidal ideation Skin exam: PRESENT: dry, intact, warm. ABSENT: cyanosis, rash Results Impressions: Chest X-Ray 04/16/18 00:30 IMPRESSION: Multifocal pneumonia pattern. Differential diagnosis includes mild-moderate central pulmonary edema. Assessment & Plan - Diagnosis (1) Pneumonia Qualifiers: Pneumonia type: due to unspecified organism Laterality: bilateral Lung location: lower lobe of lung Qualified Code(s): J18.1 - Lobar pneumonia, unspecified organism Is this a current diagnosis for this admission?: Yes Plan: Pneumonia care set, follow-up blood culture and CT chest for atypical findings. (2) Asthma exacerbation Qualifiers: Asthma severity: moderate Asthma persistence: unspecified Qualified Code( s): J45.901 - Unspecified asthma with (acute) exacerbation Is this a current diagnosis for this admission?: Yes Plan: Identify trigger and avoidance, monitor peak flow, albuterol and Atrovent, Solu- Medrol tapered to prednisone - Time Time Spent: 30 to 50 Minutes - Inpatient Certification Medical Necessity: Need Close Monitoring Due to Risk of Patient Decompensation
--- NOTE | 2018-04-16 07:44 | EKG REPORT ---
SEVERITY:- OTHERWISE NORMAL ECG - SINUS TACHYCARDIA : Confirmed by: Raymond Lovelace MD 16-Apr-2018 07:43:52
[2018-04-16] MEDS: IPRATROPIUM/ALBUTEROL 0.5-2.5 MG/3 ML AMPUL NEB SCH ×3 (08:16→19:46)
[2018-04-16] MEDS: METHYLPREDNISOLONE INJ 125 MG/2 ML SDV IV SCH ×2 (09:08→17:35)
[2018-04-16] MEDS ORDERED: ONDANSETRON HCL INJ/PF 4 MG/2 ML SDV IV PRN (09:32)
[2018-04-16] MEDS ORDERED: AZITHROMYCIN 500 MG in DEXTROSE 5%-WATER 250 ML IV SCH (10:00)
[2018-04-16] MEDS ORDERED: KETOROLAC TROMETHAMINE INJ/PF 30 MG/1 ML SDV IV PRN (20:49)
[2018-04-16] MEDS ORDERED: MONTELUKAST SODIUM 10 MG TABLET PO SCH (22:00)
[2018-04-17] MEDS: IPRATROPIUM/ALBUTEROL 0.5-2.5 MG/3 ML AMPUL NEB SCH ×2 (02:04→08:18)
[2018-04-17 05:10] LABS: HEMATOCRIT 36.5 % (36.0-47.0); HEMOGLOBIN 12.3 g/dL (12.0-15.5); MEAN CORPUSCULAR HEMOGLOBIN 29.1 pg (27.0-33.4); MEAN CORPUSCULAR HGB CONC 33.6 g/dL (32.0-36.0); MEAN CORPUSCULAR VOLUME 87 fl (80-97); PLATELET COUNT 271 10^3/uL (150-450); RED BLOOD COUNT 4.22 10^6/uL (3.72-5.28); RED CELL DISTRIBUTION WIDTH 14.1 % (11.5-14.0); WHITE BLOOD COUNT 10.8 10^3/uL (4.0-10.5)
[2018-04-17 05:27] LABS: ANION GAP 11 (5-19); BLOOD UREA NITROGEN 13 mg/dL (7-20); CALCIUM 9.5 mg/dL (8.4-10.2); CARBON DIOXIDE 21 mmol/L (22-30); CHLORIDE 111 mmol/L (98-107); GLUCOSE 149 mg/dL (75-110); POTASSIUM 4.3 mmol/L (3.6-5.0); SODIUM 142.8 mmol/L (137-145)
[2018-04-17] MEDS ORDERED: METHYLPREDNISOLONE INJ 125 MG/2 ML SDV IV SCH (06:00)
[2018-04-17] MEDS ORDERED: CEFTRIAXONE 1 GM/D5W RTU 1 GM/50 ML RTUPB IV SCH (06:00)
[2018-04-17] MEDS: AZITHROMYCIN 500 MG in DEXTROSE 5%-WATER 250 ML IV SCH (06:01)
[2018-04-17] MEDS: METHYLPREDNISOLONE INJ 125 MG/2 ML SDV IV SCH (06:16)
[2018-04-17] MEDS: HEPARIN SOD (PORCINE) 5,000 UNIT/ML 1 ML SYRINGE SUBCUT SCH (07:05)
--- NOTE | 2018-04-17 09:54 | PDOC DISCHARGE SUMMARY ---
General - Admit/Disc Date/PCP Admission Date/Primary Care Provider: 04/16/18 03:43 Discharge Date: 04/17/18 - Discharge Diagnosis (1) Asthma exacerbation Is this a current diagnosis for this admission?: Yes (2) Pneumonia Is this a current diagnosis for this admission?: Yes - Additional Information Resuscitation Status: Full Code Discharge Diet: As Tolerated Discharge Activity: Activity As Tolerated Prescriptions: Ipratropium/Albuterol Sulfate [Duoneb 3 ml Ampul] 3 ml NEB Q4 PRN #30 vial.neb PRN Reason: Ketorolac Tromethamine [Toradol 10 mg Tablet] 10 mg PO Q8HP PRN #6 tablet PRN Reason: Levofloxacin 750 mg PO DAILY #5 tablet Montelukast Sodium [Singulair 10 mg Tablet] 10 mg PO DAILY #30 tablet Prednisone [Deltasone] 40 mg PO DAILY #5 tablet Home Medications: Albuterol Sulfate [Proair HFA] 2 puff IH Q4 04/16/18 Budesonide/Formoterol Fumarate [Symbicort HFA 160-4.5 mcg Inhaler 6 gm] 2 puff IH Q12 04/16/18 Guaifenesin [Mucinex] 600 mg PO Q12 04/16/18 Ipratropium/Albuterol Sulfate [Duoneb 3 ml Ampul] 3 ml NEB RTQ4 04/16/18 Acetaminophen [Tylenol 325 mg Tablet] 650 mg PO Q4HP PRN tablet 04/17/18 Ipratropium/Albuterol Sulfate [Duoneb 3 ml Ampul] 3 ml NEB Q4 PRN #30 vial.neb 04/17/18 Ketorolac Tromethamine [Toradol 10 mg Tablet] 10 mg PO Q8HP PRN #6 tablet Levofloxacin 750 mg PO DAILY #5 tablet 04/17/18 Montelukast Sodium [Singulair 10 mg Tablet] 10 mg PO DAILY #30 tablet 04/17/18 Prednisone [Deltasone] 40 mg PO DAILY #5 tablet 04/17/18 History of Present Illness History of Present Illness: KEEGAN ADAM is a 32 year old female with a past medical history of asthma versus COPD, h/o smoking, and pneumonia. She presents with 48 hours of exceptional shortness of breath with nonproductive cough associated with wheezing and peak flow of 200 prompting evaluation emergency room where she is found to have tachypnea, global wheezing and paroxysms of cough with speech and a multifocal pneumonia. She receives magnesium albuterol nebulizer with limited improvement. The hospitalist for admission. She denies recent antibiotic use,. Infectious contacts or travel Hospital Course Hospital Course: Patient initially received IV ceftriaxone and azithromycin. She also received Solu-Medrol. She also received aggressive breathing treatment. She is significantly improved and she wanted to go home. She is very comfortable and does not need oxygen. She ambulates without any difficulty and tolerating diet very well. She has an appointment with her [employer]elift in a week. She is stable for discharge with p.o. prednisone and p.o. Levaquin. She also given prescription for DuoNeb. She has a nebulizer machine at home. She should continue Symbicort and Mucinex. We also added the Singulair. She had muscle pain from coughing and improved with Toradol. We will give very short course of Toradol and she was educated about the side effects. She actually wanted Lortab but that is not indicated and carries significant risk of abuse. Physical Exam Vital Signs: Temp Pulse Resp BP Pulse Ox 98.1 F 59 L 12 110/59 L 99 04/17/18 07:58 04/17/18 08:20 04/17/18 08:20 04/17/18 07:58 04/17/18 08:20 Intake & Output 04/16/18 04/17/18 04/18/18 06:59 06:59 06:59 Intake Total 350 3060 250 Balance 350 3060 250 Weight 211 lb 13.828 oz 216 lb 0.848 oz General appearance: PRESENT: no acute distress, well-developed, well-nourished Head exam: PRESENT: atraumatic, normocephalic Eye exam: PRESENT: conjunctiva pink, EOMI, PERRLA. ABSENT: scleral icterus Ear exam: PRESENT: normal external ear exam Mouth exam: PRESENT: moist, tongue midline Neck exam: ABSENT: carotid bruit, JVD, lymphadenopathy, thyromegaly Respiratory exam: PRESENT: clear to auscultation juan a, wheezes - scattered. ABSENT: rales, rhonchi Cardiovascular exam: PRESENT: RRR. ABSENT: diastolic murmur, rubs, systolic murmur Pulses: PRESENT: normal dorsalis pedis pul GI/Abdominal exam: PRESENT: normal bowel sounds, soft. ABSENT: distended, guarding, mass, organolmegaly, rebound, tenderness Rectal exam: PRESENT: deferred Extremities exam: PRESENT: full ROM. ABSENT: calf tenderness, clubbing, pedal edema Neurological exam: PRESENT: alert, awake, oriented to person, oriented to place , oriented to time, oriented to situation, CN II-XII grossly intact. ABSENT: motor sensory deficit Results Laboratory Results: 04/17/18 04:01 04/17/18 04:01 04/17/18 04/17/18 04:01 04:01 WBC 10.8 H RBC 4.22 Hgb 12.3 Hct 36.5 MCV 87 MCH 29.1 MCHC 33.6 RDW 14.1 H Plt Count 271 Sodium 142.8 Potassium 4.3 Chloride 111 H Carbon Dioxide 21 L Anion Gap 11 BUN 13 Creatinine 0.80 Est GFR ( Amer) > 60 Est GFR (Non-Af Amer) > 60 Glucose 149 H Calcium 9.5 Impressions: Chest X-Ray 04/16/18 00:30 IMPRESSION: Multifocal pneumonia pattern. Differential diagnosis includes mild-moderate central pulmonary edema. Qualifiers - * PATIENT BEING DISCHARGED WITH ANY OF THE FOLLOWING DIAGNOSIS: No
[2018-04-17 10:24] VITALS: BP 106/55
[2018-04-18] MEDS ORDERED: CEFTRIAXONE SODIUM 1,000 MG in NORMAL SALINE 50 ML IV SCH (06:00)
== END 2018-04-17 12:00 | disposition home or self-care (01) | DRG 194 ==
LOC: ER 23:53 → UNDOADMIN 04-16 03:43 → EH 04-16 03:43 → 5 04-16 07:55 → EH 04-16 07:55
PROVIDERS: ADMIT Internal Medicine; ATTEND Internal Medicine
PROC: 3E0F73Z Introduction of Anti-inflammatory into Respiratory Tract, Via Natural or Artificial Opening (ICD-10-PCS; principal; 2018-04-16)
DX: J18.1 Lobar pneumonia, unspecified organism (principal); J45.41 Moderate persistent asthma with (acute) exacerbation; Z87.891 Personal history of nicotine dependence; Z90.49 Acquired absence of other specified parts of digestive tract; Z88.3 Allergy status to other anti-infective agents; Z82.61 Family history of arthritis; Z83.3 Family history of diabetes mellitus; Z82.49 Family history of ischemic heart disease and other diseases of the circulatory system; Z80.0 Family history of malignant neoplasm of digestive organs
CPT/HCPCS: 36415; 71046; 71250; 80048; 80053; 81001; 82803; 83605; 83880; 85025; 85027; 85610; 85652; 87040; 87086; 93005; 93010; 94640; 94799; 96361; 96365; 96366; 96375; 99291; J0456; J0696; J1644; J1885; J2405; J2930; J3475; J3490; J7030; J7060; J7620

== ENCOUNTER 2019-07-03 12:26 | Emergency (ER) | payer OTHER ==
[2019-07-03 12:43] VITALS: BP 132/79
--- NOTE | 2019-07-03 13:18 | ER Document Report ---
HPI - HPI Time Seen by Provider: 07/03/19 13:04 Pain Level: 5 Context: Patient is a 33-year-old female who presents to the emergency department with a chief complaint of left knee pain. Patient reports that 3 nights ago she was resting in bed when she bent her knee and felt a pop. Patient reports there is no injury or fall. Patient reports she has been using anti-inflammatories without much relief. Patient states that the pain is worse when she is at rest and feels better when she is up walking around. Patient denies swelling to the knee or difficulty ambulating. - REPRODUCTIVE Reproductive: DENIES: : Past Medical History - General Information source: Patient - Social History Smoking Status: Current Every Day Smoker Lives with: Family Family History: Arthritis, DM - Grandparents had diabetes, Hypertension, Malignancy - Father has cancer of the throat Patient has suicidal ideation: No Patient has homicidal ideation: No - Past Medical History Cardiac Medical History: Reports: None Pulmonary Medical History: Reports: Hx Asthma, Hx Pneumonia EENT Medical History: Reports: None Neurological Medical History: Reports: None Endocrine Medical History: Reports: None. Denies: Hx Diabetes Mellitus Type 2 Renal/ Medical History: Reports: Hx Ovarian Cysts, Hx Pelvic Inflammatory Disease. Denies: Hx Peritoneal Dialysis Malignancy Medical History: Reports: None GI Medical History: Reports: None Musculoskeletal Medical History: Reports None Skin Medical History: Reports None Psychiatric Medical History: Reports: None Traumatic Medical History: Reports: None Infectious Medical History: Reports: None Past Surgical History: Reports: Hx Section, Hx Cholecystectomy, Hx Tonsillectomy - Immunizations Immunizations up to date: Yes Hx Diphtheria, Pertussis, Tetanus Vaccination: Yes Vertical Provider Document - CONSTITUTIONAL Agree With Documented VS: Yes Exam Limitations: No Limitations General Appearance: No Apparent Distress - INFECTION CONTROL TRAVEL OUTSIDE OF THE [place] IN LAST 30 DAYS: No - HEENT HEENT: Atraumatic, Normocephalic, PERRLA - NECK Neck: Normal Inspection - RESPIRATORY Respiratory: Breath Sounds Normal, No Respiratory Distress - CARDIOVASCULAR Cardiovascular: Regular Rate, Regular Rhythm - GI/ABDOMEN Gastrointestinal: Abdomen Soft, Abdomen Non-Tender, Normal Bowel Sounds - MUSCULOSKELETAL/EXTREMETIES Musculoskeletal/Extremeties: FROM Notes: Patient has no edema, ecchymosis, erythema noted to the left knee. Patient has full flexion extension of the left knee joint. There is no calf swelling below the joint when compared to the right. Patient is able to walk with a steady gait. There is no point tenderness noted to the knee. Patient has a palpable dorsalis pedis, posterior tibial and popliteal pulse Course - Re-evaluation Re-evalutation: 07/03/19 13:42 Patient has full range of motion to the left knee joint. There is no abnormality of the left knee upon inspection. There is no point tenderness, edema, ecchymosis. I did offer the patient a x-ray of the knee but I did inform her this only shows bone and would show fluid but not specifically ligaments, tendons if she did have an abnormality with this. Patient reports the pain is worse when she is at rest and feels better when she is up and walking around. I did inform the patient to take anti-inflammatories and to follow-up with orthopedics. I did offer crutches but the patient reports it does not feel better at rest. I did give the patient a work note. Patient to return for any new or worsening symptoms. Patient states she came to the emergency department because she thought that we could make her knee feel better. I did inform the patient she needs to rest over the next few days, use ice and continue to use ibuprofen or any other NSAID. I did inform the patient she may need to follow- up with orthopedics if she continues to have pain - Vital Signs Vital signs: Temp Pulse Resp BP Pulse Ox 98 F 92 18 132/79 H 100 07/03/19 12:43 07/03/19 12:43 07/03/19 12:43 07/03/19 12:43 07/03/19 12:43 Discharge - Discharge Clinical Impression: Knee pain, left Qualifiers: Chronicity: acute Qualified Code(s): M25.562 - Pain in left knee Condition: Stable Disposition: HOME, SELF-CARE Additional Instructions: *Today was seen in the emergency department for left knee pain. There could be a suspected internal knee injury to include cartilage or internal ligaments. I am referring you to multiple orthopedics in the area for further evaluation. I am prescribing naproxen which is an anti-inflammatory. Please take this twice a day for the next 7 days to help with your discomfort. I would you ice and elevate the area. If you develop any severe swelling, severe pain or any new or worsening symptoms while you are waiting your exam by the orthopedist would follow-up to the emergency department. SUSPECTED INTERNAL KNEE INJURY: The examiner of your injured knee suspects an internal injury to the cartilage or internal ligaments. This must be further investigated by an tissue specialist. The knee should be protected, ice packed, and elevated while awaiting your follow-up exam by the orthopedist. If there is severe swelling, severe pain, or any new symptoms while awaiting your exam, you should call the orthopedist. (If he/she is unavailable, call us or return for re-examination.) ICE & ELEVATION: Apply ice packs frequently against the painful area. Many different schedules are recommended, such as "20 minutes on, 20 minutes off" or "one hour ice, two hours rest." If you need to work, you may need to go longer between ice treatments. You should plan to have the area ice packed AT LEAST one-fourth of the time. The ice should be applied over the wrap, tape, or splint, or over a layer of cloth -- not directly against the skin. Some ice bags have a built-in cloth and can be put directly on the skin. Your injured part should be elevated as much as possible over the next 48 hours. Try to keep the injury above the level of the heart. Avoid use of the injured area. Elevation and rest will decrease the swelling. Please be aware that prescription narcotics also have the potential for abuse. People become addicted to these medications because of the general sense of wellbeing that they induce. This feeling along with a significant reduction in tension, anxiety, and aggression provides a stimulating seductive quality to these drugs. Once your pain is under control, we encourage you to discard your unused narcotics. FOLLOW-UP CARE: If you have been referred to a physician for follow-up care, call the physicians office for an appointment as you were instructed or within the next two days. If you experience worsening or a significant change in your symptoms, notify the physician immediately or return to the Emergency Department at any time for re-evaluation. Prescriptions: Naproxen 500 mg PO BID PRN #14 tablet PRN Reason: Forms: Return to Work Referrals: BRANDON SERRANO JR, DO [ACTIVE PROVISIONAL STAFF] - Follow up as needed FLORESITA VALLE MD [ACTIVE STAFF] - Follow up as needed SONIA RESENDIZ MD [ACTIVE PROVISIONAL STAFF] - Follow up as needed DAI ZHAO, [ACTIVE STAFF] - Follow up as needed
[2019-07-03] MEDS ORDERED: NAPROXEN 250 MG TABLET PO ONE (13:29)
== END 2019-07-03 13:39 | disposition home or self-care (01) ==
LOC: ER 12:26
DX: M25.562 Pain in left knee (principal); F17.200 Nicotine dependence, unspecified, uncomplicated; J45.909 Unspecified asthma, uncomplicated
CPT/HCPCS: 99283

== ENCOUNTER → 2019-08-27 | Outpatient (CLI) | payer OTHER ==
--- NOTE | 2019-08-27 15:58 | RADIOLOGY REPORT (SQ) ---
EXAM DESCRIPTION: MRI LT LOWER JOINT WITHOUT COMPLETED DATE/TIME: 08/27/2019 3:06 pm REASON FOR STUDY: LEFT KNEE PAIN (M25.562) M25.562 PAIN IN LEFT KNEE COMPARISON: None. TECHNIQUE: Leftknee images acquired and stored on PACS. Multiplanar images include fat sensitive se quences as T1, water sensitive sequences as FST2 or STIR, cartilage sensitive sequences as FSPD, and gradient echo sequences. LIMITATIONS: None. FINDINGS: JOINT AND BURSAE: No effusion. BONE CORTEX AND MARROW: No alteration of signal to suggest marrow replacement. No worrisome bone lesi ons. No occult fracture. ACL: Intact. No degeneration or ganglion cyst. PCL: Intact. MCL: Intact. No periligamentous edema or fluid. LCL: Intact. No periligamentous edema or fluid. MEDIAL MENISCUS: No tears. No abnormal signal. LATERAL MENISCUS: Increased signal posterior horn without extension to the articular surface. MEDIAL COMPARTMENT: Cartilage preserved. No bone bruises or reactive marrow edema. No osteophytes. LATERAL COMPARTMENT: Cartilage preserved. No bone bruises or reactive marrow edema. No osteophytes. PATELLA: No chondromalacia. No subchondral cysts. Medial and lateral retinacula intact. EXTENSOR MECHANISM: Intact. Quadriceps and patella tendons normal. SOFT TISSUES: Adjacent muscles and subcutaneous tissues normal. Normal flow void in popliteal artery and vein. OTHER: No other significant finding. IMPRESSION: No explanation for patellar pain. Intrasubstance degeneration posterior horn lateral meniscus. TECHNICAL DOCUMENTATION: JOB ID: [id number] [employer]- All Rights Reserved Reading location - IP/workstation name: [email or web address]
== END ==
LOC: RAD 14:22
PROVIDERS: ATTEND Orthopaedic Surgery Sports Medicine
DX: M23.352 Other meniscus derangements, posterior horn of lateral meniscus, left knee (principal); M25.562 Pain in left knee